=== PATIENT | female | born 1945 | race Caucasian/White ===

== ENCOUNTER → 2017-04-12 | Outpatient (CLI) | payer MEDICARE ==
[2017-04-12 13:03] LABS: Anion Gap 9 mmol/L; Blood Urea Nitrogen 16 mg/dL (7-17); CH 29.3; CHCM 33.1; Carbon Dioxide 30 mmol/L (22-30); Chloride 103 mmol/L (98-107); HCT 46.2 % (34.0-46.0); HDW 2.55; HGB 15.4 gm/dL (11.4-16.0); MCH 29.7 pg (25.0-35.0); MCHC 33.3 g/dL (31.0-37.0); MCV 89.1 fL (80.0-100.0); Mean Platelet Volume 9.2; Non-African American GFR(MDRD) >60 (>60 ml/min/1.73 sqM); Potassium 5.5 mmol/L (3.5-5.1); RBC 5.19 m/uL (3.80-5.40); RDW 13.6 % (11.5-15.5); Sodium 142 mmol/L (137-145); WBC 7.1 k/uL (3.8-10.6)
== END | disposition home or self-care (01) ==
LOC: LABPAT 11:45
PROVIDERS: ATTEND Internal Medicine Interventional Cardiology
DX: I35.0 Nonrheumatic aortic (valve) stenosis (principal); Z01.812 Encounter for preprocedural laboratory examination
CPT/HCPCS: 80051; 82565; 84520; 85027

== ENCOUNTER 2017-04-23 06:17 | Day surgery (SDC) | payer MEDICARE ==
[2017-04-19 09:03] VITALS: BMI 31.2
[2017-04-23] MEDS ORDERED: ALPRAZolam 0.25 MG TAB PO PRN (06:20)
[2017-04-23] MEDS ORDERED: ALPRAZolam 0.5 MG TAB PO PRN (06:20)
[2017-04-23] MEDS ORDERED: NITROGLYCERIN SL TABS 0.4 MG TAB SUBLINGUAL PRN (06:20)
[2017-04-23] MEDS ORDERED: SODIUM CHLORIDE 0.9% 1,000 ML in EMPTY BAG 1 BAG IV ONE (06:20)
[2017-04-23] MEDS ORDERED: ASPIRIN 325 MG TAB PO STA (06:20)
[2017-04-23] MEDS ORDERED: ATORVASTATIN 80 MG TAB PO STA (06:20)
[2017-04-23] MEDS ORDERED: SODIUM CHLORIDE 0.9% 1,000 ML IV ONE (07:15)
[2017-04-23 07:28] LABS: Glucose,Whole Blood 171 mg/dL (75-99)
[2017-04-23 07:46] LABS: Anion Gap 9 mmol/L; Blood Urea Nitrogen 20 mg/dL (7-17); Calcium 9.3 mg/dL (8.4-10.2); Carbon Dioxide 23 mmol/L (22-30); Chloride 107 mmol/L (98-107); Glucose 164 mg/dL (74-99); Non-African American GFR(MDRD) >60 (>60 ml/min/1.73 sqM); Potassium 4.8 mmol/L (3.5-5.1); Sodium 139 mmol/L (137-145)
[2017-04-23] MEDS ORDERED: fentaNYL (PF) 50 MCG/ML 2 ML AMP ONE (07:46)
[2017-04-23] MEDS ORDERED: MIDAZOLAM 2 MG/2 ML VIAL ONE (07:46)
[2017-04-23] MEDS: BENZOCAINE SPRAY 100 APPLIC/CAN MUCOUS MEM ONE ×2 (08:09→08:31)
[2017-04-23] MEDS ORDERED: LIDOCAINE 2% INJ 20 MG/ML (20 ML MDV) ONE (08:25)
[2017-04-23] MEDS: MIDAZOLAM 2 MG/2 ML VIAL IV ONE ×2 (08:31→08:33)
[2017-04-23] MEDS ORDERED: fentaNYL (PF) 50 MCG/ML 2 ML AMP IV ONE (08:33)
[2017-04-23] MEDS ORDERED: IV FLUID CONTINUATION 750 ML IV ONE (08:54)
[2017-04-23] MEDS ORDERED: LIDOCAINE 2% INJ 20 MG/ML SQ ONE (09:09)
[2017-04-23] MEDS ORDERED: BIVALIRUDIN BOLUS 250 MG/50 ML IV ONE (09:24)
[2017-04-23] MEDS ORDERED: BIVALIRUDIN 250 MG in SODIUM CHLORIDE 0.9% 50 ML IV ONE (09:24)
[2017-04-23] MEDS ORDERED: NITROGLYCERIN 1000MCG/10ML SYRINGE INTRAARTER ONE (09:43)
[2017-04-23] MEDS ORDERED: IOHEXOL 350 MG/ML 125ML BOTTLE INJ ONE (09:48)
[2017-04-23] MEDS ORDERED: RX INFO: IV CONTRAST WAS GIVEN 1 EACH MISC MISCELLANE PRN (09:56)
[2017-04-23] MEDS ORDERED: SODIUM CHLORIDE 0.9% 1,000 ML IV SCH (10:00)
--- NOTE | 2017-04-23 10:17 | ECHOT ---
DATE OF SERVICE: 04/23/2017 PERFORMING PHYSICIAN: Ozzie Addison MD. PROCEDURE PERFORMED: Transesophageal echocardiogram. INDICATIONS: This is a pleasant 72-year-old female patient who was found to have severe aortic stenosis by transthoracic echocardiogram. She was experiencing exertional dyspnea. She was brought today to undergo a transesophageal echocardiogram as well as heart catheterization. COMPLICATION: None. LEVEL OF SEDATION: Moderate with sedation length of about 15 minutes. PROCEDURE DESCRIPTION: PROCEDURE DESCRIPTION: After obtaining an informed consent, explaining the procedure, benefits, risks, complications and alternatives, the patient was brought to the transesophageal echocardiogram suite. A pulse oximetry and heart rate monitors were attached to the patient prior to the procedure. The patient's throat was sprayed using lidocaine locally. Following that, the patient was turned into left lateral position. A bite guard was placed and the patient was then sedated with the above doses of Versed and fentanyl in divided doses. Following that, the transesophageal echocardiogram probe was advanced through the bite guard into the mid esophagus where 2-D echocardiogram images as well as color Doppler images of various cardiac structures were obtained. We evaluated the interatrial septum using 2-D echocardiogram, color Doppler, and contrast study. The procedure was completed. There were no complications. FINDINGS: The left ventricular dimension and systolic function appear to be within normal limits with an ejection fraction of 60% with mild concentric left ventricular hypertrophy. The right ventricle is of normal size and function. The left atrium appeared to be mildly dilated. The left atrial appendage appeared to be free from any thrombus. The interatrial septum appeared to be intact without any evidence of shunt. The aortic valve is trileaflet valve and seems to be thickened and calcified with a restriction to opening and evidence of severe aortic stenosis by area as well as by gradient. The mitral valve seems to be also mildly thickened with mild MR. Mild tricuspid regurgitation was seen as well as mild pulmonic insufficiency. CONCLUSION: 1. Severe aortic stenosis by area as well as by gradient. The aortic valve area was less than 1 sq cm and the mean gradient was more than 40 mmHg. 2. Normal left ventricular dimension and systolic function with an ejection fraction of about 65% with mild to moderate concentric left ventricular hypertrophy. 3. Thickened mitral valve leaflets with mild mitral regurgitation. 4. Normal tricuspid valve and pulmonic valve. 5. Normal right ventricular dimension and systolic function. 6. Intact interatrial septum without any evidence of shunt. 7. Normal left atrial appendage without any evidence of thrombus. 8. Mild atherosclerotic plaque in the descending thoracic aorta. MTDD
[2017-04-23 13:32] LABS: Appearance,Urine Clear (Clear); Bacteria,Urine Rare /hpf; Bilirubin,Urine Negative (Negative); Glucose,Urine (UA) 4+ (Negative); Ketones,Urine Negative (Negative); Leukocyte Esterase,Urine Negative (Negative); Nitrite,Urine Negative (Negative); Particle Count 253; Protein,Urine Negative (Negative); RBC,Urine 15 /hpf (0-5); Specific Gravity,Urine 1.043 (1.001-1.035); UA Billing (MACRO vs. MICRO) MICRO; Urobilinogen,Urine <2.0 mg/dL (<2.0); WBC,Urine 1 /hpf (0-5)
[2017-04-23 14:47] VITALS: RESP 16
--- NOTE | 2017-04-23 16:00 | P.GSCN ---
History of Present Illness Consult date: 04/23/17 Reason for Consult: Aortic valve stenosis, surgical recommendations Requesting physician: Ozzie Addison History of present illness: This 72-year-old female patient had an echocardiogram done at her primary care physician's office following detection of a heart murmur. The echo demonstrated normal LV function with basal septal hypertrophy and evidence of severe aortic stenosis with a mean gradient of 14 mmHg. She was referred to Dr. Addison for further cardiac evaluation. She denies that she has had any chest pain or discomfort but has had exertional dyspnea and lower extremity edema. She was recommended to have a transesophageal echocardiogram and heart catheterization which were completed today. The ONEIL demonstrated severe aortic stenosis with an aortic valve area less than 1 cm and a mean gradient more than 40 mmHg. Additionally, findings included ejection fraction 65% with mild- to-moderate concentric left ventricular hypertrophy and thickened mitral valve leaflets with mild mitral regurgitation. Her heart catheterization demonstrated RCA stenosis of 50%, circumflex 70%, proximal LAD 10%, mid LAD 10% . Due to these findings, Dr. Patel was consulted for surgical recommendations. Review of Systems 14 point review systems was completed and was negative except as noted. - Constitutional Reports fatigue - Cardiovascular Reports as per HPI - Respiratory Reports as per HPI Past Medical History Past Medical History: Cancer, Diabetes Mellitus, Hyperlipidemia, Hypertension, Osteoarthritis (OA), Thyroid Disorder Additional Past Medical History / Comment(s): basal cell cancer History of Any Multi-Drug Resistant Organisms: None Reported Past Surgical History: Cholecystectomy, Tonsillectomy Additional Past Surgical History / Comment(s): colonoscopy, skin cancer Past Anesthesia/Blood Transfusion Reactions: No Reported Reaction Smoking Status: Current every day smoker - Past Family History Father Family Medical History: Myocardial Infarction ([place]) Mother Family Medical History: Cancer Additional Family Medical History / Comment(s): breast and liver Sister(s) Family Medical History: Cancer Additional Family Medical History / Comment(s): breast Medications and Allergies Home Medications Medication Instructions Recorded Confirmed Type Alendronate Sodium 70 mg PO WEEKLY 04/19/17 04/19/17 History Cholecalciferol (Vitamin D3) 2,000 unit PO DAILY 04/19/17 04/23/17 History [Vitamin D3] Empagliflozin [Jardiance] 10 mg PO QAM 04/19/17 04/23/17 History Furosemide [Lasix] 20 mg PO QAM 04/19/17 04/23/17 History Krill/Om-3/Dha/Epa/Phospho/Ast 1 each PO DAILY 04/19/17 04/19/17 History [[place]-3 Krill Oil 300 mg Sfgl] Lisinopril [Zestril] 10 mg PO HS 04/19/17 04/23/17 History Meloxicam 15 mg PO DAILY 04/19/17 04/23/17 History Methimazole [Tapazole] 5 mg PO DAILY 04/19/17 04/23/17 History Metoprolol Succinate [Toprol XL] 50 mg PO HS 04/19/17 04/23/17 History Multivitamins, Thera [Multivitamin 1 tab PO DAILY 04/19/17 04/23/17 History (formulary)] Omeprazole 20 mg PO HS 04/19/17 04/23/17 History Pravastatin Sodium [Pravachol] 40 mg PO HS 04/19/17 04/23/17 History Aspirin [Adult Low Dose Aspirin EC] 81 mg PO ONCE 04/23/17 04/23/17 History sitaGLIPtin [Januvia] 100 mg PO DAILY 04/23/17 04/23/17 History Allergies Allergy/AdvReac Type Severity Reaction Status Date / Time aspirin Allergy Nausea & Verified 04/23/17 06:51 Vomiting Penicillins Allergy Rash/Hives Verified 04/23/17 06:51 Sulfa (Sulfonamide Allergy fever Verified 04/23/17 06:51 Antibiotics) blisters on lips Surgical - Exam Vital Signs Temp Pulse Resp BP Pulse Ox 98.2 F 69 16 161/71 98 04/23/17 06:45 04/23/17 06:45 04/23/17 06:45 04/23/17 06:45 04/23/17 06:45 - General well developed, well nourished, no distress, no pain - Eyes PERRL, normal ocular movement - ENT no hearing loss - Neck trachea midline - Respiratory normal expansion, normal respiratory effort, clear to auscultation - Cardiovascular Rhythm: regular Heart Sounds: normal: S1, S2 Abnormal Heart Sounds: systolic murmur - Abdomen Abdomen: soft, non tender - Genitourinary Deferred - Rectum Deferred - Neurologic normal coordination, normal sensation - Psychiatric oriented to time, oriented to person, oriented to place, speech is normal, memory intact Results - Labs 04/23/17 07:20 Abnormal Lab Results - Last 24 Hours (Table) 04/23/17 04/23/17 04/23/17 Range/Units 07:20 07:23 13:00 BUN 20 H (7-17) mg/dL Glucose 164 H (74-99) mg/dL POC Glucose (mg/dL) 171 H (75-99) mg/dL Ur Specific [place] 1.043 H (1.001-1.035) Urine Glucose (UA) 4+ H (Negative) Urine Blood Moderate H (Negative) Urine RBC 15 H (0-5) /hpf Urine Bacteria Rare H (None) /hpf Diabetes panel 04/23/17 Range/Units 07:20 Sodium 139 (137-145) mmol/L Potassium 4.8 (3.5-5.1) mmol/L Chloride 107 (98-107) mmol/L Carbon Dioxide 23 (22-30) mmol/L BUN 20 H (7-17) mg/dL Creatinine 0.63 (0.52-1.04) mg/dL Glucose 164 H (74-99) mg/dL Calcium 9.3 (8.4-10.2) mg/dL Calcium panel 04/23/17 Range/Units 07:20 Calcium 9.3 (8.4-10.2) mg/dL Pituitary panel 04/23/17 Range/Units 07:20 Sodium 139 (137-145) mmol/L Potassium 4.8 (3.5-5.1) mmol/L Chloride 107 (98-107) mmol/L Carbon Dioxide 23 (22-30) mmol/L BUN 20 H (7-17) mg/dL Creatinine 0.63 (0.52-1.04) mg/dL Glucose 164 H (74-99) mg/dL Calcium 9.3 (8.4-10.2) mg/dL Adrenal panel 04/23/17 Range/Units 07:20 Sodium 139 (137-145) mmol/L Potassium 4.8 (3.5-5.1) mmol/L Chloride 107 (98-107) mmol/L Carbon Dioxide 23 (22-30) mmol/L BUN 20 H (7-17) mg/dL Creatinine 0.63 (0.52-1.04) mg/dL Glucose 164 H (74-99) mg/dL Calcium 9.3 (8.4-10.2) mg/dL - Imaging Additional studies: Cardiac catheterization reviewed. Assessment and Plan (1) Hypertension Status: Acute (2) Hyperlipidemia Status: Acute (3) Diabetes mellitus, type II Status: Acute (4) Aortic stenosis Status: Acute (5) Coronary artery disease Status: Acute (6) Tobacco dependence Status: Acute (7) Obesity (BMI 30.0-34.9) Status: Acute Plan: The patient was seen and examined in the extended stay area. Chart/diagnostics were reviewed. Cardiac catheterization films were reviewed. Preoperative testing was ordered. Dr. Patel spoke at length with the patient and family member. The patient is to obtain dental clearance and follow-up in the office with Dr. Patel in 2 weeks. At that time surgery will be discussed in greater detail and further recommendations will follow. Thank you Dr. Addison for this consult. We look forward to working with you in the care of your patient. Time with Patient: Greater than 30
[2017-04-23 16:25] VITALS: TEMP 97.9
[2017-04-23 17:33] VITALS: BP 119/57; PULSE 68
[2017-04-23 17:46] LABS: Glucose,Whole Blood 217 mg/dL (75-99)
[2017-04-23 17:51] LABS: Basophils # (A) 0.1 k/uL (0-0.2); Basophils % (A) 1 %; CH 29.8; Eosinophils # (A) 0.2 k/uL (0-0.7); Eosinophils % (A) 2 %; HDW 2.56; HGB 14.2 gm/dL (11.4-16.0); Luc # (Auto) 0.11; Luc % (Auto) 1; Lymphocytes # (A) 1.9 k/uL (1.0-4.8); Lymphocytes % (A) 21 %; MCHC 33.1 g/dL (31.0-37.0); MCV 90.7 fL (80.0-100.0); Mean Platelet Volume 10.2; Monocytes # (A) 0.4 k/uL (0-1.0); Monocytes % (A) 4 %; Neutrophils # (A) 6.4 k/uL (1.3-7.7); Neutrophils % (A) 70 %; RBC 4.74 m/uL (3.80-5.40); RDW 14.7 % (11.5-15.5); WBC 9.1 k/uL (3.8-10.6); WBC (Perox) 9.27
[2017-04-23 18:00] LABS: ALT 26 U/L (9-52); AST 18 U/L (14-36); Alkaline Phosphatase 69 U/L (38-126); Anion Gap 8 mmol/L; Blood Urea Nitrogen 18 mg/dL (7-17); Carbon Dioxide 26 mmol/L (22-30); Chloride 102 mmol/L (98-107); Cholesterol 160 mg/dL (<200); Glucose 214 mg/dL (74-99); HDL Cholesterol 40 mg/dL (40-60); Magnesium 1.7 mg/dL (1.6-2.3); Non-African American GFR(MDRD) >60 (>60 ml/min/1.73 sqM); Potassium 4.4 mmol/L (3.5-5.1); Sodium 136 mmol/L (137-145); Total Bilirubin 0.5 mg/dL (0.2-1.3); Total Protein 6.3 g/dL (6.3-8.2); Triglycerides 224 mg/dL (<150)
[2017-04-23 18:01] LABS: INR 1.1 (<1.2); Partial Thromboplastin Time 26.6 sec (22.0-30.0); Prothrombin Time 11.1 sec (9.0-12.0)
--- NOTE | 2017-04-23 18:27 | XR ---
EXAMINATION TYPE: XR chest 2V DATE OF EXAM: 04/23/2017 COMPARISON: NONE HISTORY: Preop cardiac surgery TECHNIQUE: Frontal and lateral views of the chest are obtained. FINDINGS: There is no heart failure nor confluent pneumonic infiltrate. There is coarsening of inter stitial markings. Heart size is normal. Thoracic aorta is atheromatous. Bones are osteopenic. IMPRESSION: Mild pulmonary fibrotic changes. No acute lung disease.
[2017-04-23 19:12] LABS: Hepatitis B Surface Ag Index 0.05
[2017-04-23 19:18] LABS: Hepatitis B Core IgM Index 0.03
[2017-04-23 19:30] LABS: Hepatitis C Virus IgG Ab Negative (Negative); Hepatitis C Virus IgG Index 0.02
--- NOTE | 2017-04-23 20:13 | CC ---
DATE OF PROCEDURE: 04/23/2017 PERFORMING PHYSICIAN: Ozzie Addison M.D., psychodramatist PROCEDURES PERFORMED: 1. Selective right common femoral artery angiogram. 2. Selective right and left coronary angiogram. 3. Fractional flow reserve of the left circumflex coronary artery. INDICATION: This is a pleasant 72-year-old female patient who was experiencing exertional dyspnea and was found to have severe aortic stenosis. The heart catheterization is for further clarification of the severity of CAD before the surgery. APPROACH: Right common femoral artery. COMPLICATIONS: None. LEVEL OF SEDATION: Moderate, with a sedation length of 38 minutes. PROCEDURE DESCRIPTION: After obtaining informed consent, the patient was brought to the cardiac laboratory technologist. The right common femoral artery was cannulated using micropuncture technique. The micropuncture wire passed easily. Then I placed a 6 [place] sheath in the right common femoral artery. Subsequently I did selective right and left coronary angiogram using JR4 and JL4 catheters. After reviewing the angiogram, I performed an FFR of the left circumflex. Please see separate paragraph for that. SELECTIVE CORONARY ANGIOGRAM: 1. The right coronary artery is a large-caliber vessel. It is a dominant vessel. It is heavily calcified. RCA has disease in the proximal portion of about 50%. The mid and distal portions appeared to have mild disease only. The RCA distally bifurcates into PDA and PLV branches; both are angiographically normal. 2. The left main is angiographically normal. It bifurcates into the left circumflex and left anterior descending artery. 3. The left circumflex is a large-caliber vessel. It is a non-dominant vessel. The proximal circumflex has eccentric calcified lesions that seem to be in the range of 60% to 70%, and by FFR came in to be ischemic, less than 0.80. The left circumflex gives rise to the first OM branch, which appears to have mild to moderate diffuse disease in the proximal portion. It continues after that as a moderate-caliber vessel in the AV groove. 4. The left anterior descending artery. The proximal LAD appeared to be have mild disease only. The mid LAD appeared to have mild disease only as well, then it distally appeared to have mild disease only. The LAD in the mid portion gives rise to the first diagonal branch, which appeared to be angiographically normal. FFR OF THE LEFT CIRCUMFLEX: Anticoagulation was initiated using Angiomax. After zeroing the Doppler wire and equalizing between the Doppler wire and the guiding catheter which was JL4 guiding catheter, we did an FFR. The FFR came in to be quite ischemic without adenosine infusion and without hyperemia. CONCLUSION: 1. Mild disease involving the right coronary artery. 2. Severe disease involving the proximal left circumflex coronary artery. 3. Mild disease involving the LAD. POST-PROCEDURE MANAGEMENT: 1. Consult surgeon for evaluation of AVR along with coronary artery bypass grafting to left circumflex. 2. Follow up with the patient. RAFAEL
[2017-04-23 22:19] LABS: Hemoglobin A1C 7.2 % (4.2-6.1)
--- NOTE | 2017-04-28 14:37 | P.VSCSTY ---
Greater Saphenous Vein Mapping This is bilateral lower extremity greater saphenous vein mapping. Date of service 04/23/2017 Vein quality and ultrasound appearance preop CABG. Multiple branches bilaterally nonocclusive thrombus is noted in the right groin and high thigh.. Vein size groin right 4.6 x 6.0 groin left 3.6 x 4.0 High thigh right 2.9 x 3.6 high thigh left 2.4 x 3.3 Mid thigh right 2.4 x 2.7 mid thigh left 2.2 x 2.4 Above-knee right 2.0 x 2.2 above- knee left 2.0 x 2.6 Below knee right 2.1 x 2.6 below-knee left 1.8 x 1.8 Mid calf right 2.2 x 2.7 mid calf left 1.9 x 2.2 Ankle right 2.7 x 3.7 ankle left 2.2 x 2.8 Impression usable greater saphenous vein proximally on the left and distally on the right. Would avoid use of the groin and high thigh on the right. The left below the knee may be a bit small.
== END 2017-04-23 19:05 | disposition home or self-care (01) ==
LOC: CATHCVL 06:17 → 3OBS 09:46 → CATHCVL 19:05
PROVIDERS: ATTEND Internal Medicine Interventional Cardiology
DX: I08.0 Rheumatic disorders of both mitral and aortic valves (principal); I70.0 Atherosclerosis of aorta; I25.110 Atherosclerotic heart disease of native coronary artery with unstable angina pectoris; R00.1 Bradycardia, unspecified; I44.0 Atrioventricular block, first degree; I45.10 Unspecified right bundle-branch block; R94.31 Abnormal electrocardiogram [ECG] [EKG]; J84.10 Pulmonary fibrosis, unspecified; R01.1 Cardiac murmur, unspecified; R93.1 Abnormal findings on diagnostic imaging of heart and coronary circulation; I10 Essential (primary) hypertension; E78.5 Hyperlipidemia, unspecified; E11.9 Type 2 diabetes mellitus without complications; E66.9 Obesity, unspecified; Z68.31 Body mass index [BMI] 31.0-31.9, adult; E07.9 Disorder of thyroid, unspecified; E78.00 Pure hypercholesterolemia, unspecified; F17.200 Nicotine dependence, unspecified, uncomplicated; Z79.899 Other long term (current) drug therapy; Z79.51 Long term (current) use of inhaled steroids; Z79.84 Long term (current) use of oral hypoglycemic drugs; Z88.6 Allergy status to analgesic agent; Z88.0 Allergy status to penicillin; Z88.2 Allergy status to sulfonamides
CPT/HCPCS: 93312; 93320; 93005; 93325; 93571; 93454; 83880; 80061; 80053; 80048; 80074; 84443; 83036; 83735; 85025; 85610; 85730; 81001; 87070; 87086; 71020; 93970; 99152; 99153; C1887; C1894; C1769 ×2; J2001; J2250; J3010; J0583; Q9967

== ENCOUNTER 2017-04-25 07:48 | Inpatient (IN) | payer MEDICARE ==
[2017-04-25] MEDS ORDERED: SODIUM CHLORIDE 0.9% 1,000 ML IV STA (08:14)
--- NOTE | 2017-04-25 08:29 | ED ---
General Adult HPI - General Chief complaint: Skin/Abscess/Foreign Body Stated complaint: POST OP SWELLING Time Seen by Provider: 04/25/17 08:09 Source: patient, RN notes reviewed, old records reviewed Mode of arrival: EMS Limitations: no limitations - History of Present Illness Initial comments: This is a 72-year-old female ER for evaluation. Patient is presenting to the ER for evaluation regarding episode of diaphoresis, patient states she is severe by pain, groin pain with from recent cardiac catheterization. Patient also states she lost control of bowels today. Patient does have significant heart history, significant history of cardiac disease. Denies fever congestion or chest pain. No bowel pain. Denies neurological deficits at this time. Complaining of thigh pain severe. - Related Data Home Medications Medication Instructions Recorded Confirmed Alendronate Sodium 70 mg PO SA 04/19/17 04/25/17 Cholecalciferol (Vitamin D3) 2,000 unit PO DAILY 04/19/17 04/25/17 [Vitamin D3] Empagliflozin [Jardiance] 10 mg PO QAM 04/19/17 04/25/17 Furosemide [Lasix] 20 mg PO QAM 04/19/17 04/25/17 Krill/Om-3/Dha/Epa/Phospho/Ast 1 cap PO DAILY 04/19/17 04/25/17 [[place]-3 Krill Oil 300 mg Sfgl] Lisinopril [Zestril] 10 mg PO HS 04/19/17 04/25/17 Meloxicam 15 mg PO DAILY 04/19/17 04/25/17 Methimazole [Tapazole] 5 mg PO DAILY 04/19/17 04/25/17 Metoprolol Succinate [Toprol XL] 50 mg PO HS 04/19/17 04/25/17 Multivitamins, Thera [Multivitamin 1 tab PO DAILY 04/19/17 04/25/17 (formulary)] Omeprazole 20 mg PO HS 04/19/17 04/25/17 Pravastatin Sodium [Pravachol] 40 mg PO HS 04/19/17 04/25/17 sitaGLIPtin [Januvia] 100 mg PO DAILY 04/23/17 04/25/17 Allergies Allergy/AdvReac Type Severity Reaction Status Date / Time aspirin Allergy Nausea & Verified 04/25/17 13:07 Vomiting Penicillins Allergy Rash/Hives Verified 04/25/17 13:07 Sulfa (Sulfonamide Allergy fever Verified 04/25/17 13:07 Antibiotics) blisters on lips Review of Systems ROS Statement: Those systems with pertinent positive or pertinent negative responses have been documented in the HPI. ROS Other: All systems not noted in ROS Statement are negative. Past Medical History - Past Family History Father Family Medical History: Myocardial Infarction ([place]) Mother Family Medical History: Cancer Sister(s) Family Medical History: Cancer General Exam Limitations: no limitations General appearance: alert, in no apparent distress Head exam: Present: atraumatic, normocephalic, normal inspection Eye exam: Present: normal appearance, PERRL, EOMI. Absent: scleral icterus, conjunctival injection, periorbital swelling ENT exam: Present: normal exam, mucous membranes moist Neck exam: Present: normal inspection. Absent: tenderness, meningismus, lymphadenopathy Respiratory exam: Present: normal lung sounds bilaterally. Absent: respiratory distress, wheezes, rales, rhonchi, stridor Cardiovascular Exam: Present: regular rate, normal rhythm, normal heart sounds. Absent: systolic murmur, diastolic murmur, rubs, gallop, clicks GI/Abdominal exam: Present: soft, normal bowel sounds. Absent: distended, tenderness, guarding, rebound, rigid Extremities exam: Present: normal inspection, full ROM, normal capillary refill , other (Right leg edema, swelling, pain, good distal pulses dorsalis pedis and posterior tibialis right lower extremity, good capillary refill positive). Absent: tenderness, pedal edema, joint swelling, calf tenderness Back exam: Present: normal inspection Neurological exam: Present: alert, oriented X3, CN II-XII intact Psychiatric exam: Present: normal affect, normal mood Skin exam: Present: warm, dry, intact, normal color. Absent: rash Course Vital Signs 04/25/17 04/25/17 04/25/17 07:49 09:43 10:41 Temperature 97.1 F L Pulse Rate 67 67 69 Respiratory Rate Blood Pressure 161/68 155/67 146/65 O2 Sat by Pulse 100 96 98 Oximetry 04/25/17 11:40 Temperature Pulse Rate 82 Respiratory 18 Rate Blood Pressure 137/65 O2 Sat by Pulse 97 Oximetry - Reevaluation(s) Reevaluation #1: 04/25/17 13:25 The patient has had no syncopal events, denies chest pain or shortness of breath Reevaluation #2: 04/25/17 13:25 Spoke with cardiology regarding findings, we'll consult radiology for treatment 04/25/17 13:25 Spoke with radiology regarding treatment, recommend consulting interventional radiology EKG Findings - EKG Comments: EKG Findings:: EKG shows sinus rhythm rate of 60, [place] 194, QRS 126, QTc 480 Medical Decision Making - Medical Decision Making 72 female the ER for evaluation regarding right leg pain, loss of bowel, loss of bladder, patient is positive right leg pseudoaneurysm. Patient reported repeat troponin which showed mild increased outpatient be for trending of troponin cardiac evaluation. Patient also ate the admitted for interventional radiology treatment of pseudoaneurysm - Lab Data Result diagrams: 04/25/17 08:27 04/25/17 08:27 Lab Results 04/25/17 04/25/17 04/25/17 Range/Units 08:27 08:27 08:27 WBC 12.3 H (3.8-10.6) k/uL RBC 4.68 (3.80-5.40) m/uL Hgb 14.0 (11.4-16.0) gm/dL Hct 42.2 (34.0-46.0) % MCV 90.1 (80.0-100.0) fL MCH 29.8 (25.0-35.0) pg MCHC 33.1 (31.0-37.0) g/dL RDW 14.6 (11.5-15.5) % Plt Count 153 (150-450) k/uL Neutrophils % 82 % Lymphocytes % 11 % Monocytes % 4 % Eosinophils % 1 % Basophils % 1 % Neutrophils # 10.1 H (1.3-7.7) k/uL Lymphocytes # 1.4 (1.0-4.8) k/uL Monocytes # 0.5 (0-1.0) k/uL Eosinophils # 0.1 (0-0.7) k/uL Basophils # 0.1 (0-0.2) k/uL PT (9.0-12.0) sec INR (<1.2) APTT (22.0-30.0) sec Sodium 141 (137-145) mmol/L Potassium 5.8 H (3.5-5.1) mmol/L Chloride 106 (98-107) mmol/L Carbon Dioxide 27 (22-30) mmol/L Anion Gap 8 mmol/L BUN 18 H (7-17) mg/dL Creatinine 0.75 (0.52-1.04) mg/dL Est GFR (MDRD) Af Amer >60 (>60 ml/min/1.73 sqM) Est GFR (MDRD) Non-Af >60 (>60 ml/min/1.73 sqM) Glucose 264 H (74-99) mg/dL Calcium 9.3 (8.4-10.2) mg/dL Phosphorus 3.7 (2.5-4.5) mg/dL Magnesium 1.9 (1.6-2.3) mg/dL Total Bilirubin 0.7 (0.2-1.3) mg/dL AST 16 (14-36) U/L ALT 32 (9-52) U/L Alkaline Phosphatase 75 (38-126) U/L Total Creatine Kinase 26 L (30-135) U/L CK-MB (CK-2) 0.3 (0.0-2.4) ng/mL CK-MB (CK-2) Rel Index 1.2 Troponin I <0.012 (0.000-0.034) ng/mL Total Protein 6.7 (6.3-8.2) g/dL Albumin 3.8 (3.5-5.0) g/dL Urine Color Urine Appearance (Clear) Urine pH (5.0-8.0) Ur Specific [place] (1.001-1.035) Urine Protein (Negative) Urine Glucose (UA) (Negative) Urine Ketones (Negative) Urine Blood (Negative) Urine Nitrite (Negative) Urine Bilirubin (Negative) Urine Urobilinogen (<2.0) mg/dL Ur Leukocyte Esterase (Negative) Urine RBC (0-5) /hpf Urine WBC (0-5) /hpf Ur Squamous Epith Cells (0-4) /hpf Urine Bacteria (None) /hpf Hyaline Casts (0-2) /lpf Urine Mucus (None) /hpf 04/25/17 04/25/17 04/25/17 Range/Units 08:27 11:52 12:27 WBC (3.8-10.6) k/uL RBC (3.80-5.40) m/uL Hgb (11.4-16.0) gm/dL Hct (34.0-46.0) % MCV (80.0-100.0) fL MCH (25.0-35.0) pg MCHC (31.0-37.0) g/dL RDW (11.5-15.5) % Plt Count (150-450) k/uL Neutrophils % % Lymphocytes % % Monocytes % % Eosinophils % % Basophils % % Neutrophils # (1.3-7.7) k/uL Lymphocytes # (1.0-4.8) k/uL Monocytes # (0-1.0) k/uL Eosinophils # (0-0.7) k/uL Basophils # (0-0.2) k/uL PT 11.1 (9.0-12.0) sec INR 1.1 (<1.2) APTT 22.2 (22.0-30.0) sec Sodium (137-145) mmol/L Potassium (3.5-5.1) mmol/L Chloride (98-107) mmol/L Carbon Dioxide (22-30) mmol/L Anion Gap mmol/L BUN (7-17) mg/dL Creatinine (0.52-1.04) mg/dL Est GFR (MDRD) Af Amer (>60 ml/min/1.73 sqM) Est GFR (MDRD) Non-Af (>60 ml/min/1.73 sqM) Glucose (74-99) mg/dL Calcium (8.4-10.2) mg/dL Phosphorus (2.5-4.5) mg/dL Magnesium (1.6-2.3) mg/dL Total Bilirubin (0.2-1.3) mg/dL AST (14-36) U/L ALT (9-52) U/L Alkaline Phosphatase (38-126) U/L Total Creatine Kinase (30-135) U/L CK-MB (CK-2) (0.0-2.4) ng/mL CK-MB (CK-2) Rel Index Troponin I 0.028 (0.000-0.034) ng/mL Total Protein (6.3-8.2) g/dL Albumin (3.5-5.0) g/dL Urine Color Yellow Urine Appearance Clear (Clear) Urine pH 5.5 (5.0-8.0) Ur Specific [place] 1.019 (1.001-1.035) Urine Protein Negative (Negative) Urine Glucose (UA) 4+ H (Negative) Urine Ketones Negative (Negative) Urine Blood Trace H (Negative) Urine Nitrite Negative (Negative) Urine Bilirubin Negative (Negative) Urine Urobilinogen <2.0 (<2.0) mg/dL Ur Leukocyte Esterase Negative (Negative) Urine RBC 5 (0-5) /hpf Urine WBC 2 (0-5) /hpf Ur Squamous Epith Cells <1 (0-4) /hpf Urine Bacteria Rare H (None) /hpf Hyaline Casts 7 H (0-2) /lpf Urine Mucus Rare H (None) /hpf - Radiology Data Radiology results: report reviewed (Chest x-ray is negative, right leg ultrasound SHOWS POSITIVE PSEUDOANEURYSM), image reviewed Disposition Clinical Impression: Pseudoaneurysm, Right leg pain, Elevated troponin Disposition: ADMITTED IP TO THIS [facility] Condition: Fair Referrals: Howard Glover MD [Primary Care Provider] - 1-2 days
[2017-04-25 08:47] LABS: ALT 32 U/L (9-52); AST 16 U/L (14-36); Alkaline Phosphatase 75 U/L (38-126); Anion Gap 8 mmol/L; Blood Urea Nitrogen 18 mg/dL (7-17); Calcium 9.3 mg/dL (8.4-10.2); Carbon Dioxide 27 mmol/L (22-30); Chloride 106 mmol/L (98-107); Glucose 264 mg/dL (74-99); Magnesium 1.9 mg/dL (1.6-2.3); Non-African American GFR(MDRD) >60 (>60 ml/min/1.73 sqM); Phosphorous 3.7 mg/dL (2.5-4.5); Potassium 5.8 mmol/L (3.5-5.1); Sodium 141 mmol/L (137-145); Total Bilirubin 0.7 mg/dL (0.2-1.3); Total Protein 6.7 g/dL (6.3-8.2)
[2017-04-25 08:52] LABS: Basophils # (A) 0.1 k/uL (0-0.2); Basophils % (A) 1 %; CH 29.6; Eosinophils # (A) 0.1 k/uL (0-0.7); Eosinophils % (A) 1 %; HCT 42.2 % (34.0-46.0); HDW 2.53; Luc % (Auto) 1; Lymphocytes # (A) 1.4 k/uL (1.0-4.8); Lymphocytes % (A) 11 %; MCH 29.8 pg (25.0-35.0); MCHC 33.1 g/dL (31.0-37.0); MCV 90.1 fL (80.0-100.0); Mean Platelet Volume 10.6; Monocytes # (A) 0.5 k/uL (0-1.0); Monocytes % (A) 4 %; Neutrophils # (A) 10.1 k/uL (1.3-7.7); Neutrophils % (A) 82 %; RBC 4.68 m/uL (3.80-5.40); RDW 14.6 % (11.5-15.5); WBC 12.3 k/uL (3.8-10.6); WBC (Perox) 11.28
[2017-04-25 08:56] LABS: Creatine Kinase 26 U/L (30-135); INR 1.1 (<1.2); Partial Thromboplastin Time 22.2 sec (22.0-30.0); Prothrombin Time 11.1 sec (9.0-12.0)
[2017-04-25 09:09] LABS: Creatine Kinase MB 0.3 ng/mL (0.0-2.4); Troponin I <0.012 ng/mL (0.000-0.034)
--- NOTE | 2017-04-25 10:30 | XR ---
EXAMINATION TYPE: XR chest 1V DATE OF EXAM: 04/25/2017 HISTORY: Shortness of breath. COMPARISON: 04/23/2017 TECHNIQUE: Single view of the chest is submitted. FINDINGS: Demonstrated are scattered senescent parenchymal change. There is no evidence for focal infiltrate. The heart is stable. Hilar and mediastinal structures are within normal limits. Degenerative changes are seen of the dorsal spine. IMPRESSION: 1. Chronic changes without evidence for acute pulmonary disease.
--- NOTE | 2017-04-25 11:47 | US ---
EXAMINATION TYPE: US lower ext pseudo artery RT DATE OF EXAM: 04/25/2017 COMPARISON: NONE CLINICAL HISTORY: Pain. EXAM PERFORMED: Grayscale and color Doppler duplex imaging performed of the groin, post cardiac chinedu ter to assess for pseudoaneurysm. SIDE PERFORMED: Right Color and Waveform Doppler performed to assess for the presence of pseudoaneurysm; Is there ultrasound evidence of a pseudoaneurysm: Yes Is there evidence of AV shunting: No Is there a fluid collection present: Yes There is an approximate 5 x 1.5 cm pseudoaneurysm identified within the right groin with a 1.25 m in length neck noted. An adjacent collection seen which may reflect hematoma measuring 8 x 1.3 x 2.9 cm. IMPRESSION: Right groin pseudoaneurysm with adjacent hematoma.
[2017-04-25 12:45] LABS: Appearance,Urine Clear (Clear); Bacteria,Urine Rare /hpf; Bilirubin,Urine Negative (Negative); Glucose,Urine (UA) 4+ (Negative); Ketones,Urine Negative (Negative); Leukocyte Esterase,Urine Negative (Negative); Mucus,Urine Rare /hpf; Nitrite,Urine Negative (Negative); PH, Urine 5.5 (5.0-8.0); Particle Count 4377; Protein,Urine Negative (Negative); RBC,Urine 5 /hpf (0-5); Specific Gravity,Urine 1.019 (1.001-1.035); Squamous Epithelial Cell,Urine <1 /hpf (0-4); UA Billing (MACRO vs. MICRO) MICRO; Urobilinogen,Urine <2.0 mg/dL (<2.0); WBC,Urine 2 /hpf (0-5)
[2017-04-25] MEDS ORDERED: SODIUM POLYSTYRENE SULFONATE 15 GM/60 ML BOTTLE PO STA (14:31)
[2017-04-25] MEDS ORDERED: ACETAMINOPHEN TAB 500 MG TAB PO PRN (15:10)
[2017-04-25] MEDS: HYDROcodone/APAP 5-325MG 1 EACH TAB PO PRN (15:24)
[2017-04-25 15:37] VITALS: BMI 31.2
--- NOTE | 2017-04-25 16:23 | P.HPIM ---
History of Present Illness This 73-year-old pleasant female came in because of worsening hematoma in the right groin area patient underwent cardiac catheterization on last Wednesday. Patient is found to have pseudoaneurysm and hematoma. Cardiology and vascular surgery are being consulted for this. Patient was complaining of severe pain in that area for which she'll use Tylenol and [place] for pain control. Patient underwent cardiac catheterization and ONEIL, cardioversion did not show any significant stentable atherosclerotic vascular disease although patient is found to have attic valve regurgitation for which patient is supposed to follow with cardiac thoracic surgery as an outpatient. Patient denied any fever, chills, nausea, vomiting, lightheadedness. Review of Systems REVIEW OF SYSTEMS: CONSTITUTIONAL: No fever, no malaise, no fatigue. HEENT: No recent visual problems or hearing problems. Denied any sore throat. CARDIOVASCULAR: No chest pain, orthopnea, PND, no palpitations, no syncope. PULMONARY: No shortness of breath, no cough, no hemoptysis. GASTROINTESTINAL: No diarrhea, no nausea, no vomiting, no abdominal pain. Normoactive bowel sounds. NEUROLOGICAL: No headaches, no weakness, no numbness. HEMATOLOGICAL: Denies any bleeding or petechiae. GENITOURINARY: Denies any burning micturition, frequency, or urgency. MUSCULOSKELETAL/RHEUMATOLOGICAL: Denies any joint pain, swelling, or any muscle pain. ENDOCRINE: Denies any polyuria or polydipsia. The rest of the 14-point review of systems is negative. Past Medical History Past Medical History: Coronary Artery Disease (CAD), Cancer, Diabetes Mellitus, GERD/Reflux, Hyperlipidemia, Hypertension, Osteoarthritis (OA) Additional Past Medical History / Comment(s): aortic stenosis, right bundle branch block, basal cell carcinoma History of Any Multi-Drug Resistant Organisms: None Reported Past Surgical History: Cholecystectomy, Heart Catheterization Additional Past Surgical History / Comment(s): skin cancer removed, nasal surgery Past Anesthesia/Blood Transfusion Reactions: No Reported Reaction Past Psychological History: No Psychological Hx Reported Smoking Status: Current every day smoker Past Alcohol Use History: None Reported Past Drug Use History: None Reported - Past Family History Father Family Medical History: Myocardial Infarction ([place]) Mother Family Medical History: Cancer Sister(s) Family Medical History: Cancer Medications and Allergies Home Medications Medication Instructions Recorded Confirmed Type Alendronate Sodium 70 mg PO SA 04/19/17 04/25/17 History Cholecalciferol (Vitamin D3) 2,000 unit PO DAILY 04/19/17 04/25/17 History [Vitamin D3] Empagliflozin [Jardiance] 10 mg PO QAM 04/19/17 04/25/17 History Furosemide [Lasix] 20 mg PO QAM 04/19/17 04/25/17 History Krill/Om-3/Dha/Epa/Phospho/Ast 1 cap PO DAILY 04/19/17 04/25/17 History [[place]-3 Krill Oil 300 mg Sfgl] Lisinopril [Zestril] 10 mg PO HS 04/19/17 04/25/17 History Meloxicam 15 mg PO DAILY 04/19/17 04/25/17 History Methimazole [Tapazole] 5 mg PO DAILY 04/19/17 04/25/17 History Metoprolol Succinate [Toprol XL] 50 mg PO HS 04/19/17 04/25/17 History Multivitamins, Thera [Multivitamin 1 tab PO DAILY 04/19/17 04/25/17 History (formulary)] Omeprazole 20 mg PO HS 04/19/17 04/25/17 History Pravastatin Sodium [Pravachol] 40 mg PO HS 04/19/17 04/25/17 History sitaGLIPtin [Januvia] 100 mg PO DAILY 04/23/17 04/25/17 History Allergies Allergy/AdvReac Type Severity Reaction Status Date / Time aspirin Allergy Nausea & Verified 04/25/17 13:07 Vomiting Penicillins Allergy Rash/Hives Verified 04/25/17 13:07 Sulfa (Sulfonamide Allergy fever Verified 04/25/17 13:07 Antibiotics) blisters on lips Physical Exam Vitals: Vital Signs Temp Pulse Pulse Resp BP Pulse Ox 04/25/17 15:31 86 17 98 04/25/17 13:27 86 17 107/71 98 04/25/17 11:40 82 18 137/65 97 04/25/17 10:41 69 17 146/65 98 04/25/17 09:43 67 17 155/67 96 04/25/17 07:49 97.1 F L 67 17 161/68 100 Intake and Output 04/25/17 04/25/17 04/25/17 06:59 14:59 22:59 Other: Weight 72.575 kg 72.58 kg Patient Weight 04/26/17 06:59 Weight 72.58 kg PHYSICAL EXAMINATION: GENERAL: The patient is alert and oriented x3, not in any acute distress. Well developed, well nourished. HEENT: Pupils are round and equally reacting to light. EOMI. No scleral icterus. No conjunctival pallor. Normocephalic, atraumatic. No pharyngeal erythema. No thyromegaly. CARDIOVASCULAR: S1 and S2 present. No murmurs, rubs, or gallops. PULMONARY: Chest is clear to auscultation, no wheezing or crackles. ABDOMEN: Soft, nontender, nondistended, normoactive bowel sounds. No palpable organomegaly. MUSCULOSKELETAL: No joint swelling or deformity. EXTREMITIES: No cyanosis, clubbing, or pedal edema. Patient has hematoma in the right groin area with significant bruise which is significantly large extending from groin and up to almost 2 cm about the mid thigh area. NEUROLOGICAL: Gross neurological examination did not reveal any focal deficits. SKIN: No rashes. Results CBC & Chem 7: 04/25/17 08:27 04/25/17 08:27 Labs: Abnormal Lab Results - Last 24 Hours (Table) 04/25/17 04/25/17 04/25/17 Range/Units 08:27 08:27 08:27 WBC 12.3 H (3.8-10.6) k/uL Neutrophils # 10.1 H (1.3-7.7) k/uL Potassium 5.8 H (3.5-5.1) mmol/L BUN 18 H (7-17) mg/dL Glucose 264 H (74-99) mg/dL Total Creatine Kinase 26 L (30-135) U/L Urine Glucose (UA) (Negative) Urine Blood (Negative) Urine Bacteria (None) /hpf Hyaline Casts (0-2) /lpf Urine Mucus (None) /hpf 04/25/17 Range/Units 12:27 WBC (3.8-10.6) k/uL Neutrophils # (1.3-7.7) k/uL Potassium (3.5-5.1) mmol/L BUN (7-17) mg/dL Glucose (74-99) mg/dL Total Creatine Kinase (30-135) U/L Urine Glucose (UA) 4+ H (Negative) Urine Blood Trace H (Negative) Urine Bacteria Rare H (None) /hpf Hyaline Casts 7 H (0-2) /lpf Urine Mucus Rare H (None) /hpf Thrombosis Risk Factor Assmnt - Choose All That Apply Each Factor Represents 1 point: Obesity (BMI >25) Each Risk Factor Represents 2 Points: Age 61-74 years, Patient confined to bed Thrombosis Risk Factor Assessment Total Risk Factor Score: 5 Thrombosis Risk Factor Assessment Level: High Risk Assessment and Plan Plan: 1 pseudoaneurysm and right groin hematoma status post cardiac catheterization, vascular surgery and cardiology were consulted. Pain management as mentioned above. #2 hyperkalemia: Patient is already having diarrhea because of which we are not giving her kayxelate. Lisinopril will be held. Patient is also on Lasix which will be held as well #3 leukocytosis: React to secondary to right groin hematoma without any other signs or symptoms of infection. #4 type 2 diabetes mellitus: He appeared to be uncontrolled will continue with her home regimen along with sliding scale nitration depending on her blood sugars here and need for sliding scale insulin #5 hypertension #6 hyperlipidemia #7 gastroesophageal reflux disease #8 osteoarthritis #9 hypothyroidism: TSH is within normal limits with methimazole which will be continued. For above-mentioned chronic medical problems will be required and continue her home medications monitor vital signs.
[2017-04-25 17:10] LABS: Glucose,Whole Blood 150 mg/dL (75-99)
[2017-04-25] MEDS ORDERED: THROMBIN (BOVINE) 5,000 UNIT VIAL MISCELLANE ONE (17:30)
[2017-04-25] MEDS ORDERED: SODIUM CHLORIDE 0.9% 1,000 ML IV ONE (18:04)
[2017-04-25] MEDS ORDERED: LIDOCAINE 2% INJ 20 MG/ML SQ ONE (18:05)
--- NOTE | 2017-04-25 19:31 | US ---
Ultrasound-guided compression and thrombin injection right groin pseudoaneurysm DATE OF EXAM: 04/25/2017 CLINICAL HISTORY: Postcardiac catheter right groin pseudoaneurysm The procedure was discussed with the patient. The risks, complications, benefits, and alternatives we re discussed and any questions were answered. This includes injection of thrombin for possible pseudo aneurysm thrombosis the possible risk of thrombin affecting the [place] blood vessels and potentially requiring surgery. Patient wanted to proceed with procedure. Informed consent was obtained. The patient was placed supine on the ultrasound table and prepped and draped in the usual sterile fas hion. All elements of maximal barrier and sterile technique were utilized. Approximately 30 minutes of intermittent compression was performed well pulses were monitored through out the exam prior to and post and during the procedure. Unsuccessful ultrasound compression. Persist ent pseudoaneurysm. Case discussed with referring surgeon. The risks, applications benefits alternatives discussed Under ultrasound guidance, access into the pleural pseudoaneurysm was achieved and there is placement of approximately 100 units of thrombin wi th complete thrombosis of the pseudoaneurysm. Referring surgeon present during exam. Repeat imaging d emonstrated a patent [place] vasculature. Pulses were identical prior to the procedure, during the pro cedure and post procedure. Patient without complaints. The patient was stable throughout the procedure and remained stable upon discharge from Department of Radiology. IMPRESSION: 1. Successful ultrasound-guided thrombin injection of right groin pseudoaneurysm. Case was discussed with referring physician and the patient's nurse and repeat ultrasound is recommended for the morning to confirm complete thrombosis
--- NOTE | 2017-04-25 19:31 | US ---
EXAMINATION TYPE: US inj pseudoaneurysm DATE OF EXAM: 04/25/2017 COMPARISON: NONE CLINICAL HISTORY: pseudo. EXAM PERFORMED: See dictation for ultrasound pseudoaneurysm compression.
[2017-04-25 20:50] LABS: Glucose,Whole Blood 223 mg/dL (75-99)
[2017-04-25] MEDS: PANTOPRAZOLE 40 MG TABLET PO SCH (21:42)
[2017-04-25] MEDS: PRAVASTATIN SODIUM 40 MG TAB PO SCH (21:42)
[2017-04-25] MEDS: METOPROLOL SUCCINATE (ER) 50 MG TAB.ER.24H PO SCH (21:42)
[2017-04-26 05:50] LABS: Glucose,Whole Blood 201 mg/dL (75-99)
[2017-04-26 06:38] LABS: CH 29.4; CHCM 32.9; HCT 33.8 % (34.0-46.0); HDW 2.53; MCH 29.4 pg (25.0-35.0); MCHC 32.7 g/dL (31.0-37.0); RBC 3.75 m/uL (3.80-5.40); RDW 14.3 % (11.5-15.5); WBC 10.5 k/uL (3.8-10.6)
[2017-04-26] MEDS: INSULIN LISPRO (humaLOG) 300 UNIT/3 ML VIAL SQ SCH ×4 (06:45→21:29)
[2017-04-26 06:57] LABS: Anion Gap 8 mmol/L; Blood Urea Nitrogen 14 mg/dL (7-17); Calcium 8.9 mg/dL (8.4-10.2); Carbon Dioxide 25 mmol/L (22-30); Chloride 104 mmol/L (98-107); Glucose 201 mg/dL (74-99); Non-African American GFR(MDRD) >60 (>60 ml/min/1.73 sqM); Potassium 5.1 mmol/L (3.5-5.1); Sodium 137 mmol/L (137-145)
[2017-04-26] MEDS: LINAGLIPTIN 5 MG TABLET PO SCH (08:09)
[2017-04-26] MEDS: METHIMAZOLE 5 MG TAB PO SCH (08:09)
[2017-04-26] MEDS ORDERED: ENOXAPARIN 40 MG/0.4 ML SYRINGE SQ SCH (09:00)
--- NOTE | 2017-04-26 09:53 | P.CRDCN ---
History of Present Illness Consult date: 04/26/17 Requesting physician: Kelsey Fernandez Reason for Consult (text): Right groin pseudoaneurysm Chief complaint: Right groin swelling and pain History of present illness: This is a pleasant 72-year-old female with history of hypertension, diabetes, hyperlipidemia, aortic stenosis, coronary artery disease, who was recently in the hospital on Wednesday at which time she underwent a transesophageal echocardiographic study as well as a heart catheterization by Dr. Addison. ONEIL revealed severe aortic stenosis, cardiac catheterization revealed mild disease involving the RCA, severe disease involving the proximal circumflex and mild disease in the LAD. Patient was seen in consultation by cardiothoracic surgery and as she is scheduled to follow-up with them as an outpatient for bypass surgery as well as aortic valve replacement. She presents to the hospital on this occasion with symptoms of severe pain and swelling in her right groin. She was found to have a significant pseudoaneurysm measuring 5 x 1.5 cm, they attempted to compress with ultrasound and subsequently injected thrombin yesterday. EKG on admission here shows a normal sinus rhythm with right bundle branch block pattern, no acute changes noted. Chest x-ray revealed chronic changes without any active cardiopulmonary disease. Blood pressure this morning 148/60 with a heart rate in the 70s to 98 % on room air. White blood cell count on admission 12.3, hemoglobin 14, 11 this morning. Potassium 5.1, BUN 14, creatinine 0.6. Magnesium level I.9, troponin 0.012, 0.028. At the time of my examination this morning, patient does complain of discomfort in the right groin however she states it's much less than when she initially came in. Past Medical History Past Medical History: Coronary Artery Disease (CAD), Cancer, Diabetes Mellitus, GERD/Reflux, Hyperlipidemia, Hypertension, Osteoarthritis (OA) Additional Past Medical History / Comment(s): aortic stenosis, right bundle branch block, basal cell carcinoma History of Any Multi-Drug Resistant Organisms: None Reported Past Surgical History: Cholecystectomy, Heart Catheterization Additional Past Surgical History / Comment(s): skin cancer removed, nasal surgery Past Anesthesia/Blood Transfusion Reactions: No Reported Reaction Past Psychological History: No Psychological Hx Reported Smoking Status: Current every day smoker Past Alcohol Use History: None Reported Past Drug Use History: None Reported - Past Family History Father Family Medical History: Myocardial Infarction ([place]) Mother Family Medical History: Cancer Sister(s) Family Medical History: Cancer Medications and Allergies Home Medications Medication Instructions Recorded Confirmed Type Alendronate Sodium 70 mg PO SA 04/19/17 04/25/17 History Cholecalciferol (Vitamin D3) 2,000 unit PO DAILY 04/19/17 04/25/17 History [Vitamin D3] Empagliflozin [Jardiance] 10 mg PO QAM 04/19/17 04/25/17 History Furosemide [Lasix] 20 mg PO QAM 04/19/17 04/25/17 History Krill/Om-3/Dha/Epa/Phospho/Ast 1 cap PO DAILY 04/19/17 04/25/17 History [[place]-3 Krill Oil 300 mg Sfgl] Lisinopril [Zestril] 10 mg PO HS 04/19/17 04/25/17 History Meloxicam 15 mg PO DAILY 04/19/17 04/25/17 History Methimazole [Tapazole] 5 mg PO DAILY 04/19/17 04/25/17 History Metoprolol Succinate [Toprol XL] 50 mg PO HS 04/19/17 04/25/17 History Multivitamins, Thera [Multivitamin 1 tab PO DAILY 04/19/17 04/25/17 History (formulary)] Omeprazole 20 mg PO HS 04/19/17 04/25/17 History Pravastatin Sodium [Pravachol] 40 mg PO HS 04/19/17 04/25/17 History sitaGLIPtin [Januvia] 100 mg PO DAILY 04/23/17 04/25/17 History Allergies Allergy/AdvReac Type Severity Reaction Status Date / Time aspirin Allergy Nausea & Verified 04/25/17 13:07 Vomiting Penicillins Allergy Rash/Hives Verified 04/25/17 13:07 Sulfa (Sulfonamide Allergy fever Verified 04/25/17 13:07 Antibiotics) blisters on lips Physical Exam Vitals: Vital Signs Temp Pulse Pulse Resp BP BP Pulse Ox 04/26/17 08:09 97.6 F 75 16 149/68 98 04/26/17 06:00 97.9 F 77 17 150/63 98 04/26/17 04:00 97.6 F 68 18 99 04/26/17 00:00 97.4 F L 70 19 166/70 99 04/25/17 22:00 97.4 F L 82 17 128/60 98 04/25/17 21:00 97.6 F 74 18 159/70 99 04/25/17 20:00 97.6 F 79 17 132/60 98 04/25/17 19:30 97.8 F 90 18 122/62 99 04/25/17 19:00 73 16 148/66 99 04/25/17 18:45 65 16 147/66 98 04/25/17 18:30 70 16 147/66 98 04/25/17 18:15 98.5 F 78 16 135/71 98 04/25/17 16:00 99.1 F 81 18 135/61 99 04/25/17 15:31 86 17 98 04/25/17 13:27 86 17 107/71 98 04/25/17 11:40 82 18 137/65 97 04/25/17 10:41 69 17 146/65 98 04/25/17 09:43 67 17 155/67 96 Intake and Output 04/25/17 04/26/17 04/26/17 22:59 06:59 14:59 Intake Total 10 180 Output Total 500 Balance 10 -500 180 Intake: IV 10 Oral 180 Output: Urine 500 Other: Voiding Method Toilet Toilet # Voids 0 1 # Bowel Movements 0 Weight 72.58 kg 71.5 kg PHYSICAL EXAMINATION: HEENT: Head is atraumatic, normocephalic. Pupils equal, round. Neck is supple. There is no elevated jugular venous pressure. HEART EXAMINATION: S1 and S2 systolic murmur is heard CHEST EXAMINATION: Lungs are clear to auscultation and precussion. No chest wall tenderness is noted on palpation or with deep breathing. ABDOMEN: Soft, nontender. Bowel sounds are heard. No organomegaly noted. Right groin reveals significant ecchymosis, soft, no bruit EXTREMITIES: 2+ peripheral pulses with no evidence of peripheral edema and no calf tenderness noted. NEUROLOGIC patient is awake, alert and oriented -3. . Results 04/26/17 06:16 04/26/17 06:16 Cardiac Enzymes 04/25/17 Range/Units 11:52 Troponin I 0.028 (0.000-0.034) ng/mL CBC 04/26/17 Range/Units 06:16 WBC 10.5 (3.8-10.6) k/uL RBC 3.75 L (3.80-5.40) m/uL Hgb 11.0 L D (11.4-16.0) gm/dL Hct 33.8 L (34.0-46.0) % Plt Count 150 (150-450) k/uL Comprehensive Metabolic Panel 04/26/17 Range/Units 06:16 Sodium 137 (137-145) mmol/L Potassium 5.1 (3.5-5.1) mmol/L Chloride 104 (98-107) mmol/L Carbon Dioxide 25 (22-30) mmol/L BUN 14 (7-17) mg/dL Creatinine 0.60 (0.52-1.04) mg/dL Glucose 201 H (74-99) mg/dL Calcium 8.9 (8.4-10.2) mg/dL Current Medications Generic Name Dose Route Start Last Admin Trade Name Freq PRN Reason Stop Dose Admin Acetaminophen 1,000 mg 04/25/17 15:10 Tylenol Tab PO Q6HR PRN Fever and/ or Mild Pain Hydrocodone Bitart/Acetaminophen 1 each 04/25/17 15:10 04/25/17 15:24 [place] 5-325 PO 1 each Q6HR PRN Administration Severe Pain Insulin Human Lispro 0 unit 04/26/17 07:30 04/26/17 06:45 Humalog SQ 2 unit ACHS DEISY Administration Protocol Linagliptin 5 mg 04/26/17 09:00 04/26/17 08:09 Tradjenta PO 5 mg DAILY DEISY Administration Methimazole 5 mg 04/26/17 09:00 04/26/17 08:09 Tapazole PO 5 mg DAILY DEISY Administration Metoprolol Succinate 50 mg 04/25/17 21:00 04/25/17 21:42 Toprol Xl PO 50 mg HS DEISY Administration Pantoprazole Sodium 40 mg 04/25/17 21:00 04/25/17 21:42 Protonix PO 40 mg HS DEISY Administration Pravastatin Sodium 40 mg 04/25/17 21:00 04/25/17 21:42 Pravachol PO 40 mg HS DEISY Administration Intake and Output 04/25/17 04/26/17 04/26/17 22:59 06:59 14:59 Intake Total 10 180 Output Total 500 Balance 10 -500 180 Intake: IV 10 Oral 180 Output: Urine 500 Other: Voiding Method Toilet Toilet # Voids 0 1 # Bowel Movements 0 Weight 72.58 kg 71.5 kg 04/26/17 06:16 04/26/17 06:16 EKG Interpretations (text) EKG shows a normal sinus rhythm with a right bundle branch block pattern. Assessment and Plan Plan: Assessment and plan #1 right groin pseudoaneurysm, status post thrombin injection #2 severe aortic stenosis #3 coronary artery disease, cardiac catheterization was performed on Wednesday which revealed mild disease in the RCA, severe disease in the proximal circumflex and mild disease in the LAD #4 Hypertension #5 hyperlipidemia #6 diabetes Plan We will repeat an ultrasound of the groin this morning. Resume the patient's home medications. Further recommendations to follow. DNP note has been reviewed, I agree with a documented findings and plan of care. Patient was seen and examined.
--- NOTE | 2017-04-26 10:13 | CONS ---
This is a 72-year-old female. Patient had heart catheterization on Wednesday. Patient came in with hematoma of the right groin and ultrasound showed patient has a hematoma with pseudoaneurysm. Patient underwent cardiac catheterization and ONEIL and found to have a valve regurgitation which he will follow up with cardiothoracic surgeon as an outpatient. Patient has history of coronary artery disease, history of cancer, history of diabetes mellitus, hyperlipidemia , hypertension, osteoarthritis. On examination, patient was seen in his room. Vital signs are stable. Lying comfortably in bed. She has some ecchymosis noted in the right groin area. Femoral is palpable bilateral. Posterior dorsalis pedis by the Doppler. Plan is discussed with Interventional Radiologist for decompression of the pseudoaneurysm. ( ) is on their way and patient will be taken to the [facility] for this intervention. Will follow with you. RAFAEL
--- NOTE | 2017-04-26 11:35 | US ---
EXAMINATION TYPE: US lower ext pseudo artery RT DATE OF EXAM: 04/26/2017 COMPARISON: Previous study dated 04/25/2017. CLINICAL HISTORY: follow up thrombin injection. EXAM PERFORMED: Grayscale and color Doppler duplex imaging performed of the groin, post cardiac chinedu ter to assess for pseudoaneurysm. SIDE PERFORMED: Right Color and Waveform Doppler performed to assess for the presence of pseudoaneurysm; Is there ultrasound evidence of a pseudoaneurysm: NO Is there evidence of AV shunting: No Is there a fluid collection present: Yes minimal amount IMPRESSION: EVIDENCE OF RIGHT GROIN HEMATOMA WITHOUT PSEUDOANEURYSM.
[2017-04-26 12:01] LABS: Glucose,Whole Blood 234 mg/dL (75-99)
--- NOTE | 2017-04-26 13:51 | P.PN ---
Subjective She is admitted for right groin hematoma post cardiac catheterization and the cardiology is according 1 more day of monitoring since her hemoglobin did drop by 4 points. Patient denied any fever, chills, nausea, vomiting, lightheadedness, dizziness, denied any significant pain in the right groin area, new focus no new focal weakness Objective - Vital Signs Vital signs: Vital Signs Temp 97.6 F 04/26/17 11:14 Pulse 77 04/26/17 11:14 Resp 17 04/26/17 11:14 BP 130/62 04/26/17 11:14 Pulse Ox 98 04/26/17 11:14 Intake & Output 04/25/17 04/26/17 04/26/17 18:59 06:59 18:59 Intake Total 10 417 Output Total 500 300 Balance 10 -500 117 Weight 72.58 kg 71.5 kg Intake: IV 10 Oral 417 Output: Urine 500 300 Other: Voiding Method Toilet Toilet # Voids 0 1 # Bowel Movements 0 - Exam PHYSICAL EXAMINATION: GENERAL: The patient is alert and oriented x3, not in any acute distress. Well developed, well nourished. HEENT: Pupils are round and equally reacting to light. EOMI. No scleral icterus. No conjunctival pallor. Normocephalic, atraumatic. No pharyngeal erythema. No thyromegaly. CARDIOVASCULAR: S1 and S2 present. No murmurs, rubs, or gallops. PULMONARY: Chest is clear to auscultation, no wheezing or crackles. ABDOMEN: Soft, nontender, nondistended, normoactive bowel sounds. No palpable organomegaly. MUSCULOSKELETAL: No joint swelling or deformity. EXTREMITIES: No cyanosis, clubbing, or pedal edema. Patient has hematoma in the right groin area with significant bruise which is significantly large extending from groin and up to almost 2 cm about the mid thigh area. NEUROLOGICAL: Gross neurological examination did not reveal any focal deficits. SKIN: No rashes. - Labs CBC & Chem 7: 04/26/17 06:16 04/26/17 06:16 Labs: Abnormal Lab Results - Last 24 Hours (Table) 04/25/17 04/25/17 04/26/17 Range/Units 16:44 20:50 05:49 RBC (3.80-5.40) m/uL Hgb (11.4-16.0) gm/dL Hct (34.0-46.0) % Glucose (74-99) mg/dL POC Glucose (mg/dL) 150 H 223 H 201 H (75-99) mg/dL 04/26/17 04/26/17 04/26/17 Range/Units 06:16 06:16 11:59 RBC 3.75 L (3.80-5.40) m/uL Hgb 11.0 L D (11.4-16.0) gm/dL Hct 33.8 L (34.0-46.0) % Glucose 201 H (74-99) mg/dL POC Glucose (mg/dL) 234 H (75-99) mg/dL Microbiology - Last 24 Hours (Table) 04/25/17 12:27 Urine Culture - Preliminary Urine,Voided Assessment and Plan Plan: 1 right groin hematoma status post cardiac catheterization, vascular surgery and cardiology were consulted. Pain management as mentioned above. Repeat ultrasound of the right groin did not show any increased to hematoma or any pseudoaneurysm. #2 hyperkalemia: Patient is already having diarrhea because of which we are not giving her kayxelate. Lisinopril will be held. Patient is also on Lasix which will be held as well #3 leukocytosis: React to secondary to right groin hematoma without any other signs or symptoms of infection. #4 type 2 diabetes mellitus: He appeared to be uncontrolled will continue with her home regimen along with sliding scale nitration depending on her blood sugars here and need for sliding scale insulin #5 hypertension #6 hyperlipidemia #7 gastroesophageal reflux disease #8 osteoarthritis #9 hypothyroidism: TSH is within normal limits with methimazole which will be continued.
[2017-04-26 17:30] LABS: Glucose,Whole Blood 190 mg/dL (75-99)
[2017-04-26 19:12] LABS: Basophils # (A) 0.1 k/uL (0-0.2); Basophils % (A) 1 %; CH 29.4; CHCM 32.9; Eosinophils # (A) 0.1 k/uL (0-0.7); Eosinophils % (A) 1 %; HCT 31.8 % (34.0-46.0); HDW 2.52; HGB 10.5 gm/dL (11.4-16.0); Luc # (Auto) 0.11; Luc % (Auto) 1; Lymphocytes # (A) 1.5 k/uL (1.0-4.8); Lymphocytes % (A) 17 %; MCH 29.9 pg (25.0-35.0); MCHC 33.2 g/dL (31.0-37.0); Mean Platelet Volume 10.6; Monocytes # (A) 0.5 k/uL (0-1.0); Monocytes % (A) 5 %; Neutrophils # (A) 6.6 k/uL (1.3-7.7); Neutrophils % (A) 74 %; RBC 3.53 m/uL (3.80-5.40); RDW 14.6 % (11.5-15.5); WBC 8.9 k/uL (3.8-10.6); WBC (Perox) 9.53
[2017-04-26] MEDS: METOPROLOL SUCCINATE (ER) 50 MG TAB.ER.24H PO SCH (20:20)
[2017-04-26] MEDS: PANTOPRAZOLE 40 MG TABLET PO SCH (20:20)
[2017-04-26] MEDS: PRAVASTATIN SODIUM 40 MG TAB PO SCH (20:20)
[2017-04-26 20:56] LABS: Glucose,Whole Blood 263 mg/dL (75-99)
[2017-04-26] MEDS: HYDROcodone/APAP 5-325MG 1 EACH TAB PO PRN (21:33)
[2017-04-27 06:02] LABS: Glucose,Whole Blood 215 mg/dL (75-99)
[2017-04-27] MEDS: INSULIN LISPRO (humaLOG) 300 UNIT/3 ML VIAL SQ SCH ×2 (06:19→12:25)
[2017-04-27 06:49] LABS: Basophils # (A) 0.1 k/uL (0-0.2); Basophils % (A) 1 %; CH 29.5; CHCM 32.7; Eosinophils # (A) 0.3 k/uL (0-0.7); Eosinophils % (A) 3 %; HCT 30.3 % (34.0-46.0); HDW 2.51; HGB 10.1 gm/dL (11.4-16.0); Luc # (Auto) 0.18; Luc % (Auto) 2; Lymphocytes # (A) 1.8 k/uL (1.0-4.8); Lymphocytes % (A) 19 %; MCH 30.2 pg (25.0-35.0); MCHC 33.2 g/dL (31.0-37.0); MCV 90.9 fL (80.0-100.0); Mean Platelet Volume 10.3; Monocytes # (A) 0.6 k/uL (0-1.0); Monocytes % (A) 6 %; Neutrophils # (A) 6.6 k/uL (1.3-7.7); Neutrophils % (A) 69 %; RBC 3.34 m/uL (3.80-5.40); RDW 14.1 % (11.5-15.5); WBC 9.6 k/uL (3.8-10.6)
--- NOTE | 2017-04-27 08:51 | P.PN ---
Subjective Principal diagnosis: Right groin pseudoaneurysm This is a pleasant 72-year-old female with history of hypertension, diabetes, hyperlipidemia, aortic stenosis, coronary artery disease, who was recently in the hospital on Wednesday at which time she underwent a transesophageal echocardiographic study as well as a heart catheterization by Dr. Addison. ONEIL revealed severe aortic stenosis, cardiac catheterization revealed mild disease involving the RCA, severe disease involving the proximal circumflex and mild disease in the LAD. Patient was seen in consultation by cardiothoracic surgery and as she is scheduled to follow-up with them as an outpatient for bypass surgery as well as aortic valve replacement. She presents to the hospital on this occasion with symptoms of severe pain and swelling in her right groin. She was found to have a significant pseudoaneurysm measuring 5 x 1.5 cm, they attempted to compress with ultrasound and subsequently injected thrombin. EKG on admission here shows a normal sinus rhythm with right bundle branch block pattern, no acute changes noted. Chest x- ray revealed chronic changes without any active cardiopulmonary disease. 04/27/2017 Ultrasound of the groin was repeated yesterday, revealed persistent evidence of hematoma with no evidence of pseudoaneurysm. Hemoglobin last evening 10.5, 10.1 this morning. Overall patient feels well, groin is much less tender. Objective - Vital Signs Vital signs: Vital Signs Temp 97.4 F L 04/27/17 04:00 Pulse 64 04/27/17 04:00 Resp 18 04/27/17 04:00 BP 128/58 04/27/17 04:00 Pulse Ox 96 04/27/17 04:00 Intake & Output 04/26/17 04/27/17 04/27/17 18:59 06:59 18:59 Intake Total 597 Output Total 300 1000 Balance 297 -1000 Weight 70.9 kg Intake: Oral 597 Output: Urine 300 1000 Other: Voiding Method Toilet Toilet # Voids 1 1 - Exam PHYSICAL EXAMINATION: HEENT: Head is atraumatic, normocephalic. Pupils equal, round. Neck is supple. There is no elevated jugular venous pressure. HEART EXAMINATION: S1 and S2 systolic murmur is heard CHEST EXAMINATION: Lungs are clear to auscultation and precussion. No chest wall tenderness is noted on palpation or with deep breathing. ABDOMEN: Soft, nontender. Bowel sounds are heard. No organomegaly noted. Right groin reveals significant ecchymosis, soft, no bruit EXTREMITIES: 2+ peripheral pulses with no evidence of peripheral edema and no calf tenderness noted. NEUROLOGIC patient is awake, alert and oriented -3. - Labs CBC & Chem 7: 04/27/17 05:49 04/26/17 06:16 Labs: Abnormal Lab Results - Last 24 Hours (Table) 04/26/17 04/26/17 04/26/17 Range/Units 11:59 17:27 18:54 RBC 3.53 L (3.80-5.40) m/uL Hgb 10.5 L (11.4-16.0) gm/dL Hct 31.8 L (34.0-46.0) % Plt Count 130 L (150-450) k/uL POC Glucose (mg/dL) 234 H 190 H (75-99) mg/dL 04/26/17 04/27/17 04/27/17 Range/Units 20:55 05:49 06:00 RBC 3.34 L (3.80-5.40) m/uL Hgb 10.1 L (11.4-16.0) gm/dL Hct 30.3 L (34.0-46.0) % Plt Count 132 L (150-450) k/uL POC Glucose (mg/dL) 263 H 215 H (75-99) mg/dL Microbiology - Last 24 Hours (Table) 04/25/17 12:27 Urine Culture - Final Urine,Voided Assessment and Plan Plan: Assessment and plan #1 right groin pseudoaneurysm, status post thrombin injection #2 severe aortic stenosis #3 coronary artery disease, cardiac catheterization was performed on Wednesday which revealed mild disease in the RCA, severe disease in the proximal circumflex and mild disease in the LAD #4 Hypertension #5 hyperlipidemia #6 diabetes Plan From cardiology's perspective, patient may be able to be discharged home today. She has a follow-up appointment with Dr. Bedoya in the office on Wednesday which she has been instructed to keep. We will also have her obtain CBC as an outpatient tomorrow and . DNP note has been reviewed, I agree with a documented findings and plan of care. Patient was seen and examined.
[2017-04-27] MEDS ORDERED: MUPIROCIN 2% OINT 22 GM TUBE TOPICAL SCH (09:00)
[2017-04-27 09:47] LABS: Hemoglobin A1C 7.1 % (4.2-6.1)
[2017-04-27] MEDS: LINAGLIPTIN 5 MG TABLET PO SCH (10:14)
[2017-04-27] MEDS: METHIMAZOLE 5 MG TAB PO SCH (10:14)
[2017-04-27 11:57] LABS: Glucose,Whole Blood 198 mg/dL (75-99)
--- NOTE | 2017-04-27 12:35 | P.DS ---
Providers Date of admission: 04/25/17 13:26 Attending physician: Kelsey Fernandez Consults: 04/25/17 13:26 Consult Physician Urgent Consulting Provider: Sarah Singh Consult Reason/Comments: elevTrop Do you want consulting provider notified?: Yes 04/25/17 15:08 Consult Physician Urgent Consulting Provider: Satnam Saldaña Consult Reason/Comments: hematoma/psudo Do you want consulting provider notified?: Yes Primary care physician: Howard [facility] Course: She is admitted for right groin hematoma post cardiac catheterization and the cardiology is according 1 more day of monitoring since her hemoglobin did drop by 4 points. 04/27/2017 Patient's hemoglobin is stable and patient clinically does not appear to have any more bleed. Patient is not on antiplatelet therapy patient will be discharged today. Because of her hyperkalemia lisinopril was discontinued patient down the line can be started on low-dose of lisinopril with close monitoring of potassium levels as an outpatient. Patient will benefit from lisinopril as nephro protective agent because of her diabetes mellitus history Patient Condition at Discharge: Fair Plan - Discharge Summary New Discharge Prescriptions: Discontinued Lisinopril [Zestril] 10 mg PO HS No Action Multivitamins, Thera [Multivitamin (formulary)] 1 tab PO DAILY Pravastatin Sodium [Pravachol] 40 mg PO HS Methimazole [Tapazole] 5 mg PO DAILY Meloxicam 15 mg PO DAILY Furosemide [Lasix] 20 mg PO QAM Omeprazole 20 mg PO HS Metoprolol Succinate [Toprol XL] 50 mg PO HS Krill/Om-3/Dha/Epa/Phospho/Ast [[place]-3 Krill Oil 300 mg Sfgl] 1 cap PO DAILY Empagliflozin [Jardiance] 10 mg PO QAM Cholecalciferol (Vitamin D3) [Vitamin D3] 2,000 unit PO DAILY Alendronate Sodium 70 mg PO SA sitaGLIPtin [Januvia] 100 mg PO DAILY Discharge Medication List Alendronate Sodium 70 mg PO SA 04/19/17 [History] Cholecalciferol (Vitamin D3) [Vitamin D3] 2,000 unit PO DAILY 04/19/17 [History] Empagliflozin [Jardiance] 10 mg PO QAM 04/19/17 [History] Furosemide [Lasix] 20 mg PO QAM 04/19/17 [History] Krill/Om-3/Dha/Epa/Phospho/Ast [[place]-3 Krill Oil 300 mg Sfgl] 1 cap PO DAILY [History] Meloxicam 15 mg PO DAILY 04/19/17 [History] Methimazole [Tapazole] 5 mg PO DAILY 04/19/17 [History] Metoprolol Succinate [Toprol XL] 50 mg PO HS 04/19/17 [History] Multivitamins, Thera [Multivitamin (formulary)] 1 tab PO DAILY 04/19/17 [History ] Omeprazole 20 mg PO HS 04/19/17 [History] Pravastatin Sodium [Pravachol] 40 mg PO HS 04/19/17 [History] sitaGLIPtin [Januvia] 100 mg PO DAILY 04/23/17 [History] Follow up Appointment(s)/Referral(s): Ozzie Addison MD [STAFF PHYSICIAN] - 04/30/17 1:30 pm Paulina Patel MD [STAFF PHYSICIAN] - 05/07/17 11:00 am Howard Glover MD [Primary Care Provider] - 1-2 days Patient Instructions/Handouts: Aortic Stenosis (DC), Anemia (DC), Pseudoaneurysm (DC) Discharge Disposition: HOME SELF-CARE
[2017-04-27 13:04] VITALS: RESP 17
[2017-04-27 13:05] VITALS: BP 140/60; PULSE 71; TEMP 97.3
--- NOTE | 2017-04-27 13:40 | CDI ---
In responding to this query, please exercise your independent professional judgment. The [facility] Coding Staff and Clinical Documentation Specialists appreciate your assistance in clarifying documentation, maintaining compliance with coding guidelines, accurately documenting patients condition and capturing severity of illness. The fact that a question is asked does not imply that any particular answer is desired or expected. Communication forms are a method of clarifying documentation and are not made part of the Legal Health Record. Thank you in advance for your clarification. Last Revision, August 2015 Shira Roche [address] [facility] [place] [address] Documentation Clarification Form Date: 04/27/2017 1:01:00 PM From: Noelle Mcginnis Admit Date: 04/25/2017 1:26:00 PM Patient Name: Kasey Justin Visit Number: [id number] Discharge Date: Dr. Erica Granados A diagnosis of anemia lacks specificity to accurately reflect your patients severity of condition and clarification is needed. Patient history/risk factors: Coronary artery disease, Cancer Diabetes Mellitus , Hypertension Clinical Indicators: ER with episode of diaphoresis, severe pain in groin with recent cardiac catheterization. Found worsening hematoma in the right groin and pseudoaneurysm. 04/26/17 Progress note: 1 more day of monitoring since her hemoglobin did drop by 4 points. Hemoglobin: 14.0, 11.0, 10.5, 10.1 Hematocrit: 42.2, 33.8, 31.8, 30. 3 Treatment: Monitor Labs Discharge instructions for anemia Multivitamin PO Daily In order to capture the severity of condition, please clarify the type of anemia and etiology if known: Acute blood loss anemia Acute on chronic blood loss anemia Chronic blood loss anemia Iron deficiency anemia Hemolytic anemia Anemia of chronic kidney disease Unable to determine Other, please specify Please document in your progress notes and discharge summary in order to capture severity of illness and risk of mortality. Include clinical findings that support your diagnosis. FYI: Press F11 to launch patient chart. Place X here if this finding has no clinical significance, is not applicable or if you are not able to provide any additional documentation. RAFAEL
--- NOTE | 2017-05-10 15:31 | CDI ---
In responding to this query, please exercise your independent professional judgment. The [facility] Coding Staff and Clinical Documentation Specialists appreciate your assistance in clarifying documentation, maintaining compliance with coding guidelines, accurately documenting patients condition and capturing severity of illness. The fact that a question is asked does not imply that any particular answer is desired or expected. Communication forms are a method of clarifying documentation and are not made part of the Legal Health Record. Thank you in advance for your clarification. Last Revision, August [address] [facility] [place] [address] Documentation Clarification Form Date: 04/27/2017 1:01:00 PM From: Noelle Mcginnis Admit Date: 04/25/2017 1:26:00 PM Patient Name: Kasey Justin Visit Number: [id number] Discharge Date: Dr. Erica Granados A diagnosis of anemia lacks specificity to accurately reflect your patients severity of condition and clarification is needed. Patient history/risk factors: Coronary artery disease, Cancer Diabetes Mellitus , Hypertension Clinical Indicators: ER with episode of diaphoresis, severe pain in groin with recent cardiac catheterization. Found worsening hematoma in the right groin a pseudoaneurysm. 04/26/17 Progress note: 1 more day of monitoring since her hemoglobin did drop by 4 points. Hemoglobin: 14.0, 11.0, 10.5, 10.1 Hematocrit: 42.2, 33.8, 31.8, 30. 3 Treatment: Monitor Labs Discharge instruction for anemia Multivitamin daily In order to capture the severity of condition, please clarify the type of anemia and etiology if known: Acute blood loss anemia Acute on chronic blood loss anemia Chronic blood loss anemia Iron deficiency anemia Hemolytic anemia Anemia of chronic kidney disease Unable to determine Other, please specify Please document in your progress notes and discharge summary in order to capture severity of illness and risk of mortality. Include clinical findings that support your diagnosis. FYI: Press F11 to launch patient chart. RAFAEL
== END 2017-04-27 15:51 | disposition home or self-care (01) | DRG 920 ==
LOC: EC 07:48 → 4MS4W 13:26 → 6SEL 14:59
PROVIDERS: ADMIT Hospitalist; ATTEND Hospitalist
PROC: 3E053GC Introduction of Other Therapeutic Substance into Peripheral Artery, Percutaneous Approach (ICD-10-PCS; principal; 2017-04-25)
DX: I97.630 Postprocedural hematoma of a circulatory system organ or structure following a cardiac catheterization (principal); D62 Acute posthemorrhagic anemia; E11.65 Type 2 diabetes mellitus with hyperglycemia; I72.8 Aneurysm of other specified arteries; E87.5 Hyperkalemia; I35.2 Nonrheumatic aortic (valve) stenosis with insufficiency; I45.10 Unspecified right bundle-branch block; I25.10 Atherosclerotic heart disease of native coronary artery without angina pectoris; R19.7 Diarrhea, unspecified; E03.9 Hypothyroidism, unspecified; D72.829 Elevated white blood cell count, unspecified; I10 Essential (primary) hypertension; R74.8 Abnormal levels of other serum enzymes; E78.5 Hyperlipidemia, unspecified; M19.90 Unspecified osteoarthritis, unspecified site; R32 Unspecified urinary incontinence; R61 Generalized hyperhidrosis; R15.9 Full incontinence of feces; K21.9 Gastro-esophageal reflux disease without esophagitis; F17.200 Nicotine dependence, unspecified, uncomplicated; Z85.828 Personal history of other malignant neoplasm of skin; Z79.899 Other long term (current) drug therapy; Z90.49 Acquired absence of other specified parts of digestive tract; Z82.49 Family history of ischemic heart disease and other diseases of the circulatory system; Z88.6 Allergy status to analgesic agent; Z88.0 Allergy status to penicillin; Z88.2 Allergy status to sulfonamides; Z79.84 Long term (current) use of oral hypoglycemic drugs; Z80.9 Family history of malignant neoplasm, unspecified
CPT/HCPCS: 36002; 36415; 71010; 76936; 80048; 80053; 81001; 82550; 82553; 83036; 83735; 84100; 84443; 84484; 85025; 85027; 85610; 85730; 87086; 93005; 93975; 94760; 99285

== ENCOUNTER → 2017-07-01 | Outpatient (CLI) | payer MEDICARE ==
[2017-07-01 13:51] LABS: EKG EKG PERFORMED
[2017-07-01 14:33] LABS: Appearance,Urine Clear (Clear); Bilirubin,Urine Negative (Negative); CHCM 32.1; Glucose,Urine (UA) 4+ (Negative); HCT 42.3 % (34.0-46.0); HDW 2.57; Ketones,Urine Negative (Negative); Leukocyte Esterase,Urine Negative (Negative); MCH 29.3 pg (25.0-35.0); MCHC 32.3 g/dL (31.0-37.0); MCV 90.8 fL (80.0-100.0); Mean Platelet Volume 9.2; Nitrite,Urine Negative (Negative); Protein,Urine Negative (Negative); RBC 4.66 m/uL (3.80-5.40); Specific Gravity,Urine 1.003 (1.001-1.035); UA Billing (MACRO vs. MICRO) CHEM; Urobilinogen,Urine <2.0 mg/dL (<2.0); WBC 7.4 k/uL (3.8-10.6)
[2017-07-01 14:39] LABS: HGB 13.7 gm/dL (11.4-16.0)
[2017-07-01 14:40] LABS: Partial Thromboplastin Time 26.3 sec (22.0-30.0); Prothrombin Time 10.3 sec (9.0-12.0)
[2017-07-01 14:55] LABS: ALT 23 U/L (9-52); AST 20 U/L (14-36); Alkaline Phosphatase 69 U/L (38-126); Anion Gap 13 mmol/L; Blood Urea Nitrogen 21 mg/dL (7-17); Calcium 9.5 mg/dL (8.4-10.2); Carbon Dioxide 25 mmol/L (22-30); Chloride 103 mmol/L (98-107); Cholesterol 157 mg/dL (<200); Glucose 145 mg/dL (74-99); HDL Cholesterol 56 mg/dL (40-60); Magnesium 1.6 mg/dL (1.6-2.3); Non-African American GFR(MDRD) >60 (>60 ml/min/1.73 sqM); Potassium 4.5 mmol/L (3.5-5.1); Sodium 141 mmol/L (137-145); Total Bilirubin 0.2 mg/dL (0.2-1.3); Total Protein 7.3 g/dL (6.3-8.2)
[2017-07-01 21:18] LABS: Hemoglobin A1C 6.1 % (4.2-6.1)
--- NOTE | 2017-07-02 07:46 | XR ---
EXAMINATION TYPE: XR chest 2V DATE OF EXAM: 07/01/2017 COMPARISON: 04/25/2017 HISTORY: Presurgical clearance TECHNIQUE: Frontal and lateral views of the chest are obtained. FINDINGS: There is no focal air space opacity, pleural effusion, or pneumothorax seen. The cardiac silhouette size is within normal limits. The osseous structures are intact. Mild degenerative clemente es of the thoracic spine are noted. Degenerative changes are also seen of the glenohumeral joints and acromioclavicular joints, mild in degree. IMPRESSION: No acute cardiopulmonary process.
--- NOTE | 2017-07-19 08:51 | P.PN ---
Progress Note - Text Progress Note Date: 07/01/17 5 meter walk done on 07/01/17: 1. 4.66 sec, 2. 4.77 sec, 3. 5.5 sec
== END | disposition home or self-care (01) ==
LOC: LABPAT 13:34
PROVIDERS: ATTEND Surgery
DX: Z01.818 Encounter for other preprocedural examination (principal)
CPT/HCPCS: 36415; 71020; 80053; 80061; 81003; 83036; 83735; 83880; 84443; 84484; 85027; 85610; 85730; 86850; 86900; 86901; 86920; 87070; 87086; 93005; 94150

== ENCOUNTER 2017-07-09 05:37 | Inpatient (IN) | payer MEDICARE ==
[~2017-07-09 05:37] MED LIST: ALBUMIN HUMAN 25% 50 ML IV ONE; ALBUMIN HUMAN 5% 500 ML IVPB ONE; ATORVASTATIN 10 MG TAB PO ONE; CALCIUM CHLORIDE 100 MG/ML 10 ML SYRINGE IV ONE; CHLORHEXIDINE GLUCONATE 15 ML CUP MUCOUS MEM ONE; CLEVIDIPINE BUTYRATE 25 MG in EMPTY BAG 1 BAG IV ONE; DEXTROSE 5% IN WATER 1,000 ML with POTASSIUM CHLORIDE 110 MEQ, MAGNESIUM SULFATE 16 MEQ... IV ONE; DEXTROSE 5% IN WATER 1,000 ML with POTASSIUM CHLORIDE 25 MEQ, SODIUM CHLORIDE 4MEQ/ML V... IV ONE; HEPARIN SODIUM 1,000 UN/ML (10ML VL) IV ONE; INSULIN REGULAR 100 UNIT in SODIUM CHLORIDE 0.9% 100 ML IV ONE; LACTATED RINGERS 1,000 ML IV ONE; LACTATED RINGERS 1,000 ML IV SCH; MAGNESIUM SULFATE MG 500 MG/ML VIAL IV ONE; MANNITOL 25% 12.5 GM/50 ML VIAL IV ONE; METOPROLOL TARTRATE 12.5 MG TAB PO ONE; MIDAZOLAM 2 MG/2 ML VIAL IV PRN; MUPIROCIN 2% OINT 22 GM TUBE NASAL ONE; NITROGLYCERIN SL TABS 0.4 MG TAB SUBLINGUAL ONE; NITROGLYCERIN-D5W PMX 25 MG/250 ML BTL IV ONE; NITROGLYCERIN-D5W PMX 50 MG in DEXTROSE/WATER 1 250ML.BAG IV ONE; NOREPINEPHRIN 4 MG-0.9% NS PMX 4 MG/250 ML ML IV ONE; PHENYLEPHRINE 40 MG in SODIUM CHLORIDE 0.9% 250 ML IV ONE; PHENYLEPHRINE-0.9% NACL SYG 1 MG/10 ML SYRINGE IV ONE; PROPOFOL 1,000 MG/100 ML VIAL IV ONE; PROTAMINE SULFATE 10 MG/ML 25 ML VIAL IV ONE; PROTAMINE SULFATE 250 MG in EMPTY BAG 1 BAG IV ONE; SODIUM BICARB 8.4% 50 ML SYR (1 MEQ/ML) IV ONE; SODIUM CHLORIDE 0.9% 1,000 ML IV ONE; TRANEXAMIC ACID 2,000 MG in SODIUM CHLORIDE 0.9% 180 ML IV ONE; ceFAZolin 1,000 MG in SODIUM CHLORIDE 0.9% IRRIGATIO 1,000 ML IRRIGATION ONE; ceFAZolin 2,000 MG in SODIUM CHLORIDE 0.9% 30 ML IVPB ONE
[2017-07-09] MEDS ORDERED: HEPARIN SODIUM,PORCINE 10,000 UNIT/ML 1 ML VIAL ONE (08:08)
[2017-07-09] MEDS ORDERED: PHENYLEPHRINE-0.9% NACL SYG 1 MG/10 ML SYRINGE ONE (08:08)
[2017-07-09] MEDS ORDERED: VECURONIUM 10 MG VIAL IV ONE (08:08)
[2017-07-09] MEDS ORDERED: fentaNYL (PF) 50 MCG/ML 2 ML AMP ONE (08:08)
[2017-07-09] MEDS ORDERED: ELECTROLYTE-R (PH 7.4) 1,000 ML IV.SOLN IV ONE (08:08)
[2017-07-09] MEDS ORDERED: ALBUMIN HUMAN 5% 250 ML BOTTLE IVPB ONE (08:08)
[2017-07-09] MEDS ORDERED: PROPOFOL 10 MG/ML 20 ML VIAL IV ONE (08:08)
[2017-07-09] MEDS ORDERED: SUCCINYLCHOLINE CHLORIDE 100 MG/5 ML SYR IV ONE (08:08)
[2017-07-09] MEDS ORDERED: SODIUM CHLORIDE 0.9% 100 ML BAG ONE (08:08)
[2017-07-09] MEDS ORDERED: fentaNYL (PF) 50 MCG/ML 50 ML VIAL ONE (08:08)
[2017-07-09] MEDS ORDERED: SODIUM CHLORIDE 0.9% IRRIG 1,000 ML BTL IRRIGATION ONE (08:08)
[2017-07-09] MEDS ORDERED: TRANEXAMIC ACID 1,000 MG/10 ML VIAL ONE (08:08)
[2017-07-09] MEDS ORDERED: MIDAZOLAM 2 MG/2 ML VIAL ONE (08:08)
[2017-07-09] MEDS: ceFAZolin 2,000 MG in SODIUM CHLORIDE 0.9% 30 ML IVPB ONE ×2 (08:40→10:00)
[2017-07-09 08:53] LABS: Glucose,Whole Blood 133 mg/dL (75-99)
[2017-07-09] MEDS: HEPARIN SODIUM,PORCINE 5,000 UNIT in SODIUM CHLORIDE 0.9% 500 ML IV ONE ×2 (09:03→10:00)
[2017-07-09] MEDS: PAPAVERINE 360 MG in SODIUM CHLORIDE 0.9% 90 ML IV ONE ×2 (09:03→10:01)
[2017-07-09 09:48] LABS: Glucose,Whole Blood 134 mg/dL (75-99)
[2017-07-09 10:50] LABS: Glucose,Whole Blood 301 mg/dL (75-99)
[2017-07-09 11:03] LABS: Glucose,Whole Blood 275 mg/dL (75-99)
[2017-07-09 11:53] LABS: Glucose,Whole Blood 278 mg/dL (75-99)
[2017-07-09 12:03] LABS: Glucose,Whole Blood 261 mg/dL (75-99)
[2017-07-09 12:36] LABS: Glucose,Whole Blood 272 mg/dL (75-99)
[2017-07-09 13:25] LABS: Glucose,Whole Blood 171 mg/dL (75-99)
[2017-07-09] MEDS ORDERED: ALBUMIN HUMAN 5% 250 ML IVPB ONE ×2 (13:56→15:16)
[2017-07-09] MEDS ORDERED: ONDANSETRON 4 MG/2 ML VIAL IVP PRN (14:25)
[2017-07-09] MEDS ORDERED: Phosphorus Replacement Protoco 1 EACH MISC MISCELLANE PRN (14:25)
[2017-07-09] MEDS ORDERED: NITROGLYCERIN-D5W PMX 50 MG in DEXTROSE/WATER 1 250ML.BAG IV SCH (14:25)
[2017-07-09] MEDS ORDERED: METOCLOPRAMIDE 5 MG/ML 2 ML VIAL IVP PRN (14:25)
[2017-07-09] MEDS ORDERED: NOREPINEPHRINE 4 MG in SODIUM CHLORIDE 0.9% 250 ML IV SCH (14:25)
[2017-07-09] MEDS ORDERED: CALCIUM GLUCONATE 2,000 MG in SODIUM CHLORIDE 0.9% 100 ML IVPB PRN (14:25)
[2017-07-09] MEDS ORDERED: Magnesium Replacement Protocol 1 EACH MISC MISCELLANE PRN (14:25)
[2017-07-09] MEDS ORDERED: Potassium Replacement Protocol 1 EACH MISC MISCELLANE PRN ×2 (14:25→15:39)
[2017-07-09] MEDS ORDERED: ALBUMIN HUMAN 5% 250 ML in EMPTY BAG 1 BAG IVPB PRN (14:25)
[2017-07-09] MEDS ORDERED: PROPOFOL 1,000 MG/100 ML VIAL IV SCH (14:25)
[2017-07-09] MEDS ORDERED: BENZOCAINE/MENTHOL LOZENG 1 EACH LOZENGE MUCOUS MEM PRN (14:25)
[2017-07-09] MEDS: LACTATED RINGERS 1,000 ML IV SCH (14:41)
--- NOTE | 2017-07-09 14:52 | XR ---
EXAMINATION TYPE: XR chest 1V portable DATE OF EXAM: 07/09/2017 HISTORY: Post Op CABG COMPARISON: 07/01/2017 TECHNIQUE: Single view of the chest is submitted. FINDINGS: Endotracheal tube, NG tube, SG catheter, mediastinal drains and chest tubes are appropriately placed. Post operative changes of CABG. No sizeable pneumothorax. There is pulmonary venous congestion with mild interstitial edema. The heart is mildly enlarged. IMPRESSION: 1. Post operative changes of CABG.
[2017-07-09 14:56] LABS: Glucose,Whole Blood 85 mg/dL (75-99)
[2017-07-09 14:59] LABS: Basophils % (A) 1 %; CHCM 31.8; Eosinophils # (A) 0.1 k/uL (0-0.7); Eosinophils % (A) 1 %; HCT 27.1 % (34.0-46.0); HDW 2.61; Luc # (Auto) 0.06; Luc % (Auto) 1; Lymphocytes # (A) 0.7 k/uL (1.0-4.8); Lymphocytes % (A) 11 %; MCH 29.5 pg (25.0-35.0); MCHC 33.4 g/dL (31.0-37.0); MCV 88.2 fL (80.0-100.0); Mean Platelet Volume 9.4; Monocytes # (A) 0.2 k/uL (0-1.0); Monocytes % (A) 3 %; Neutrophils # (A) 5.8 k/uL (1.3-7.7); Neutrophils % (A) 84 %; RBC 3.07 m/uL (3.80-5.40); WBC 6.9 k/uL (3.8-10.6); WBC (Perox) 7.01
[2017-07-09 15:03] LABS: Ionized Calcium 4.4 mg/dL (4.5-5.3)
[2017-07-09 15:04] LABS: INR 1.4 (<1.2); Partial Thromboplastin Time 33.7 sec (22.0-30.0); Prothrombin Time 13.6 sec (9.0-12.0)
[2017-07-09 15:05] LABS: HGB 9.1 gm/dL (11.4-16.0)
[2017-07-09 15:08] LABS: Glucose,Whole Blood 71 mg/dL (75-99)
[2017-07-09 15:15] LABS: ALT 34 U/L (9-52); AST 53 U/L (14-36); Alkaline Phosphatase 29 U/L (38-126); Anion Gap 9 mmol/L; Blood Urea Nitrogen 19 mg/dL (7-17); Calcium 7.6 mg/dL (8.4-10.2); Carbon Dioxide 24 mmol/L (22-30); Chloride 107 mmol/L (98-107); Glucose 79 mg/dL (74-99); Magnesium 2.3 mg/dL (1.6-2.3); Non-African American GFR(MDRD) >60 (>60 ml/min/1.73 sqM); Potassium 3.6 mmol/L (3.5-5.1); Sodium 140 mmol/L (137-145); Total Bilirubin 0.3 mg/dL (0.2-1.3); Total Protein 4.5 g/dL (6.3-8.2)
[2017-07-09 15:24] LABS: Glucose,Whole Blood 62 mg/dL (75-99)
[2017-07-09] MEDS ORDERED: DEXTROSE 50%-WATER 50 ML SYRINGE IVP STA (15:39)
[2017-07-09 15:42] LABS: Glucose,Whole Blood 208 mg/dL (75-99)
[2017-07-09 15:44] LABS: ABG HCO3 24 mmol/L (21-25); ABG PCO2 45 mmHg (35-45); ABG PH 7.34 (7.35-7.45); ABG PO2 >420 mmHg (83-108)
[2017-07-09 15:45] LABS: ABG TCO2 25 mmol/L (19-24)
[2017-07-09] MEDS: IPRATROPIUM-ALBUTEROL 3 ML NEB INHALATION SCH ×3 (15:46→23:45)
[2017-07-09] MEDS: CLEVIDIPINE BUTYRATE 25 MG in EMPTY BAG 1 BAG IV SCH ×3 (15:46→20:44)
[2017-07-09] MEDS: POTASSIUM CHLORIDE 10 MEQ in WATER FOR INJECTION 1 100ML.BAG IVPB SCH ×2 (15:51→17:55)
[2017-07-09] MEDS: ceFAZolin 2 GM in SODIUM CHLORIDE 0.9% 100 ML IVPB SCH ×2 (15:51→23:02)
[2017-07-09 16:21] LABS: Glucose,Whole Blood 158 mg/dL (75-99)
[2017-07-09 17:23] LABS: Glucose,Whole Blood 140 mg/dL (75-99)
[2017-07-09] MEDS: ACETAMINOPHEN IV (For NPO) 1,000 MG in EMPTY BAG 1 BAG IVPB SCH ×2 (17:56→23:03)
[2017-07-09 18:00] LABS: Basophils # (A) 0.1 k/uL (0-0.2); Basophils % (A) 1 %; CH 29.1; CHCM 32.7; Eosinophils % (A) 0 %; HCT 30.3 % (34.0-46.0); HDW 2.61; HGB 9.7 gm/dL (11.4-16.0); Luc # (Auto) 0.08; Luc % (Auto) 1; Lymphocytes # (A) 0.9 k/uL (1.0-4.8); Lymphocytes % (A) 10 %; MCH 28.6 pg (25.0-35.0); MCV 89.5 fL (80.0-100.0); Mean Platelet Volume 10.6; Monocytes # (A) 0.5 k/uL (0-1.0); Monocytes % (A) 6 %; Neutrophils # (A) 7.3 k/uL (1.3-7.7); Neutrophils % (A) 83 %; RBC 3.39 m/uL (3.80-5.40); RDW 14.9 % (11.5-15.5); WBC 8.8 k/uL (3.8-10.6); WBC (Perox) 9.33
--- NOTE | 2017-07-09 18:15 | OP ---
OPERATIVE REPORT DATE OF SURGERY: 07/09/2017. PREOP DIAGNOSES: 1. Severe aortic valve stenosis. 2. Coronary artery disease. POSTOPERATIVE DIAGNOSES: 1. Severe aortic valve stenosis. 2. Coronary artery disease. PROCEDURE: 1. Aortic valve replacement using 21 mm Szymanski Magna ease bioprosthetic tissue valve. 2. Coronary bypass grafting x1 vessel (saphenous vein graft to obtuse marginal artery). 3. Epiaortic ultrasound. 4. Transesophageal echocardiogram. 5. Clipping of left atrial appendage using 35 mm atria clip. SURGEON: Nathaniel Odonnell MD. BRUISE TRIMMER: 1. MARCO Silveira. 2. MARCO Vera. ANESTHESIA: General. SPECIMENS: Aortic valve leaflets. COMPLICATIONS: None. INDICATIONS: The patient is a 72-year-old female, with past medical history of diabetes mellitus, hypertension, dyslipidemia, and current tobacco use who was found to have severe aortic valve stenosis. Cardiac catheterization revealed a lesion in the circumflex system. For this reason, aortic valve replacement and coronary bypass were recommended. The risks, benefits, alternatives of these procedures were discussed with the patient. All questions were answered. Consent was obtained. FINDINGS: The aortic valve was trileaflet and heavily calcified. The vein was an adequate conduit. The OM measured 1.2 mm. PROCEDURE IN DETAIL: The patient was taken to the operating room, placed supine on the operating table. After induction of general anesthesia, she was prepped and draped in the usual sterile fashion. Preoperative transesophageal echocardiogram confirmed severe aortic valve stenosis. Aortic valve appeared to be heavily calcified. The left ventricle had preserved ejection fraction. A median sternotomy was performed. Intravenous heparin was administered and pericardial cradle was created. Simultaneously greater saphenous vein was harvested from the right lower extremity using endoscopic technique. All branches were tied. The vein was adequate conduit. The ascending aorta was palpated. Due to the patient's body habitus. She had a relatively short aorta and a large fatty heart. Calcific plaque was noted at the takeoff of the innominate artery but the proximal aorta appeared to be soft. Epiaortic ultrasound was then performed. It confirmed calcific disease at the takeoff of the innominate artery with some atheromatous disease but no significant plaque in the proximal ascending aorta. An arterial cannula was placed in an area free of plaque in the distal ascending aorta near the underside of the arch. A venous cannula was placed in the right atrial appendage directed by the IVC. Both antegrade and retrograde catheters were placed as well. The patient was then placed on cardiopulmonary bypass with good decompression of the heart. The aortic cross-clamp was applied and the heart was arrested using cold blood potassium cardioplegia. Of note, cardioplegia was delivered every 15-20 minutes while the patient remained under crossclamp. We began by inspecting the left atrial appendage. It was measured and a 35 mm atria clip was chosen and applied across the base of the appendage. Next the lateral wall was inspected. The obtuse marginal artery was identified. A small arteriotomy was created. This also accepted a 1 mm probe. Using saphenous vein in a reverse fashion, an end-to-side anastomosis was created. The graft had good flow. It appeared to be hemostatic. Attention was then turned to the aortic valve. CO2 was administered over the operative field. An LV sump was placed through the right superior pulmonary vein to help in draining of the heart. An aortotomy was created in a hockey-stick fashion. The aortic leaflet was identified. It was trileaflet and heavily calcified. The leaflets were excised using sharp excision. Residual calcium was removed using a rongeur. The area was copiously irrigated with cold saline solution. Meticulous technique was used to ensure removal of all calcific debris. The aortic root was measured and a 21 mm Szymanski Magna bioprosthetic tissue valve was chosen. Pledgeted sutures were placed circumferentially around the anulus. The sutures were passed through the sewing ring. The valve was lowered into place. The sutures were tied. The valve appeared to seat nicely. The aortotomy was then closed in 2 layers using running 4-0 Prolene suture. The heart was de-aired in the standard fashion. Attention was then turned to the proximal anastomosis. This was performed in an end-to- side fashion using running 6-0 Prolene suture. 1 L of warm blood was delivered in a retrograde fashion. Lidocaine magnesium were administered as well. Again the heart was de-aired using multiple techniques. The aortic cross-clamp was removed. The retrograde catheter was removed. The LV sump was removed underwater. Temporary atrial ventricular pacing wires were placed and brought through the skin. Transesophageal echocardiogram revealed no significant intracardiac air. The patient was then weaned off cardiopulmonary bypass. She is without difficulty. Followup transesophageal echocardiogram again confirmed no significant intracardiac air. There was good function of the left ventricle and right ventricle. The bioprosthetic aortic valve appeared to be functioning well without evidence of perivalvular leak. Protamine was administered. There were no adverse reactions. The remaining cannulas were removed. Reinforcement sutures were placed as needed. The mediastinum was copiously irrigated with warm saline solution. Again all surgical sites were inspected and appeared to be hemostatic. Soft tissues were approximated over the ascending aorta. A straight 32-Filipino chest tube was placed directed in the right pleural space. A straight 36-Filipino chest tube was placed directed to the mediastinum. These were secured to the skin using sutures. The sternum was then reapproximated using stainless steel wires in a figure of eight fashion. The remainder of the wound was closed in layers. Sterile dressing was applied. The patient appeared to tolerate the procedure well. There were no immediate complications. She returned to the ICU in critical but stable condition. MMODL / IJN: [id number] /
[2017-07-09 18:25] LABS: Glucose,Whole Blood 184 mg/dL (75-99)
[2017-07-09] MEDS: INSULIN REGULAR 100 UNIT in SODIUM CHLORIDE 0.9% 100 ML IV SCH (18:31)
[2017-07-09 19:05] LABS: Glucose,Whole Blood 184 mg/dL (75-99)
[2017-07-09 20:03] LABS: Glucose,Whole Blood 172 mg/dL (75-99)
[2017-07-09 21:00] LABS: Glucose,Whole Blood 172 mg/dL (75-99)
[2017-07-09 21:07] LABS: Basophils % (A) 1 %; CH 28.2; CHCM 31.4; Eosinophils % (A) 0 %; HCT 29.3 % (34.0-46.0); HDW 2.62; HGB 9.4 gm/dL (11.4-16.0); Hypochromasia Slight; Luc # (Auto) 0.07; Luc % (Auto) 1; Lymphocytes # (A) 0.5 k/uL (1.0-4.8); Lymphocytes % (A) 7 %; MCHC 32.1 g/dL (31.0-37.0); MCV 90.2 fL (80.0-100.0); Mean Platelet Volume 9.1; Monocytes # (A) 0.4 k/uL (0-1.0); Monocytes % (A) 5 %; Neutrophils # (A) 6.5 k/uL (1.3-7.7); Neutrophils % (A) 87 %; RBC 3.25 m/uL (3.80-5.40); RDW 14.2 % (11.5-15.5); WBC 7.5 k/uL (3.8-10.6); WBC (Perox) 7.85
[2017-07-09 21:10] LABS: Anion Gap 9 mmol/L; Blood Urea Nitrogen 16 mg/dL (7-17); Calcium 7.6 mg/dL (8.4-10.2); Carbon Dioxide 23 mmol/L (22-30); Chloride 106 mmol/L (98-107); Glucose 168 mg/dL (74-99); Non-African American GFR(MDRD) >60 (>60 ml/min/1.73 sqM); Potassium 4.3 mmol/L (3.5-5.1); Sodium 138 mmol/L (137-145)
[2017-07-09] MEDS: MUPIROCIN 2% OINT 22 GM TUBE NASAL SCH (21:18)
[2017-07-09 21:59] LABS: Glucose,Whole Blood 152 mg/dL (75-99)
[2017-07-09] MEDS: MORPHINE SULFATE 2 MG/ML SYRINGE IVP PRN (22:04)
[2017-07-09 22:58] LABS: Glucose,Whole Blood 141 mg/dL (75-99)
[2017-07-09] MEDS: HEPARIN SODIUM,PORCINE 5,000 UNIT/ML 1 ML VIAL SQ SCH (23:02)
[2017-07-10 00:12] LABS: Glucose,Whole Blood 133 mg/dL (75-99)
[2017-07-10] MEDS: CLEVIDIPINE BUTYRATE 25 MG in EMPTY BAG 1 BAG IV SCH ×4 (00:12→06:57)
[2017-07-10 01:30] LABS: Glucose,Whole Blood 139 mg/dL (75-99)
[2017-07-10 01:57] LABS: ABG HCO3 24 mmol/L (21-25); ABG PCO2 39 mmHg (35-45); ABG PO2 71 mmHg (83-108); ABG TCO2 25 mmol/L (19-24)
[2017-07-10 01:58] LABS: ABG Base Excess -0.6 mmol/L
[2017-07-10 02:06] LABS: Glucose,Whole Blood 143 mg/dL (75-99)
[2017-07-10 03:06] LABS: Glucose,Whole Blood 129 mg/dL (75-99)
[2017-07-10 04:00] LABS: Glucose,Whole Blood 124 mg/dL (75-99)
[2017-07-10 04:54] LABS: Glucose,Whole Blood 117 mg/dL (75-99)
[2017-07-10] MEDS: ACETAMINOPHEN IV (For NPO) 1,000 MG in EMPTY BAG 1 BAG IVPB SCH ×3 (05:00→17:26)
[2017-07-10 05:14] LABS: Basophils % (A) 0 %; CH 29.1; Eosinophils % (A) 0 %; HCT 30.5 % (34.0-46.0); HDW 2.66; HGB 9.9 gm/dL (11.4-16.0); Luc # (Auto) 0.06; Luc % (Auto) 1; Lymphocytes # (A) 0.5 k/uL (1.0-4.8); Lymphocytes % (A) 6 %; MCH 28.7 pg (25.0-35.0); MCHC 32.3 g/dL (31.0-37.0); MCV 88.8 fL (80.0-100.0); Mean Platelet Volume 10.1; Monocytes # (A) 0.5 k/uL (0-1.0); Monocytes % (A) 5 %; Neutrophils # (A) 7.4 k/uL (1.3-7.7); Neutrophils % (A) 88 %; RBC 3.43 m/uL (3.80-5.40); RDW 14.9 % (11.5-15.5); WBC 8.5 k/uL (3.8-10.6); WBC (Perox) 8.49
[2017-07-10 05:35] LABS: INR 1.2 (<1.2); Prothrombin Time 11.9 sec (9.0-12.0)
[2017-07-10] MEDS: MORPHINE SULFATE 2 MG/ML SYRINGE IVP PRN (05:47)
[2017-07-10 05:52] LABS: Ionized Calcium 4.4 mg/dL (4.5-5.3)
[2017-07-10 06:46] LABS: ALT 72 U/L (9-52); AST 110 U/L (14-36); Alkaline Phosphatase 43 U/L (38-126); Anion Gap 9 mmol/L; Blood Urea Nitrogen 14 mg/dL (7-17); Calcium 7.5 mg/dL (8.4-10.2); Carbon Dioxide 24 mmol/L (22-30); Chloride 106 mmol/L (98-107); Glucose 106 mg/dL (74-99); Magnesium 1.9 mg/dL (1.6-2.3); Non-African American GFR(MDRD) >60 (>60 ml/min/1.73 sqM); Potassium 3.9 mmol/L (3.5-5.1); Sodium 139 mmol/L (137-145); Total Bilirubin 0.2 mg/dL (0.2-1.3); Total Protein 5.4 g/dL (6.3-8.2)
[2017-07-10 06:57] LABS: Glucose,Whole Blood 106 mg/dL (75-99)
[2017-07-10] MEDS ORDERED: Potassium Replacement Protocol 1 EACH MISC MISCELLANE PRN (07:00)
[2017-07-10] MEDS ORDERED: Magnesium Replacement Protocol 1 EACH MISC MISCELLANE PRN (07:01)
--- NOTE | 2017-07-10 07:04 | XR ---
EXAMINATION TYPE: XR chest 1V portable DATE OF EXAM: 07/10/2017 HISTORY: Post Operative Cardiac Surgery. REFERENCE: Previous study dated 07/09/2017. FINDINGS: There has been a midline sternotomy. A [place]Eriber[place] catheter remains in place. Its tip is in t he pulmonary outflow tract. The patient is ET tube and NG tube have been removed. The heart remains enlarged. Left basilar airspace disease. There is vascular congestion. There is imp roving interstitial change. IMPRESSION: 1. CONTINUING POSTOPERATIVE CHANGE. 2. IMPROVING CHANGES OF CONGESTIVE HEART FAILURE.
[2017-07-10 07:38] LABS: Glucose,Whole Blood 112 mg/dL (75-99)
--- NOTE | 2017-07-10 07:43 | CONS ---
CONSULTATION DATE OF CONSULTATION: 07/09/2017 REASON FOR CONSULTATION: Medical management requested by Dr. Odonnell. CONSULTATION: This 72-year-old patient of Dr. Glover. The patient has undergone aortic valve replacement with a bioprosthetic valve. Single-vessel CABG. Left atrial appendage clipping. The patient is currently intubated with ventilator with FiO2 40 and a PEEP of 5. The patient drips include insulin. The patient has received 500 mg of albumin for blood pressure being low. The patient's drips also include insulin and Cleviprex and lactated Ringers. The patient is currently sedated also on Diprivan. REVIEW OF SYSTEMS: Cannot be obtained because patient is intubated. PAST MEDICAL HISTORY: Diabetes, GERD, hypertension, hyperlipidemia, osteoarthritis, hypothyroid, coronary artery disease, aortic stenosis. Additional past medical history of right bundle branch block and basal cell carcinoma. PAST SURGICAL HISTORY: Cholecystectomy, cardiac catheterization, nasal surgery. PAST PSYCH HISTORY: Anxiety. SOCIAL HISTORY: The patient smoked a half a pack a day since 16 years of age. Quit for 10 years, down 2-3 cigarettes a day. This is a total about 56 years. Currently patient lives alone. FAMILY HISTORY: Myocardial infarction. HOME MEDICATIONS: 1. Januvia 100 mg p.o. daily. 2. Glucophage 1000 mg p.o. b.i.d. 3. Pravachol 40 mg q.h.s. 4. Omeprazole 20 mg daily. 5. Bactroban 2% nasal b.i.d. 6. Multivitamin 1 tab p.o. daily. 7. Toprol-XL 50 mg q.h.s. 8. Tapazole 10 mg p.o. daily. 9. Meloxicam 50 mg p.o. daily. 10.Amaryl 2 mg with breakfast. 11.Lasix 20 mg p.o. daily. 12.Vitamin D3 2000 units p.o. daily. 13.Symbicort 160/4.5 two puffs b.i.d. 14.Fosamax 70 mg on Fridays. 15.ProAir 1-2 puffs q.4h p.r.n. 16.Tylenol arthritis. ALLERGIES: ASPIRIN, PENICILLIN AND SULFUR. EXAMINATION: Afebrile, pulse 56, blood pressure 114/48, pulse ox 96% on ventilator. GENERAL APPEARANCE: Lying in bed, intubated. EYES: Pupils equal. Conjunctivae normal. HEENT: Endotracheal tube in place. External appearance of ears and nose normal. NECK: JVD unable to assess. Mass not palpable. RESPIRATORY: Effort normal. LUNGS: Diminished breath sounds. CARDIOVASCULAR: 1st and 2nd sounds normal. No edema. ABDOMEN: Soft, nontender. Liver and spleen not palpable. PSYCHIATRY: Unable to assess. NEUROLOGICAL: Pupils equal, reacting. Patient is sedated. DERMATOLOGIC: The patient has 2 chest tubes, one in the right pleural cavity and one in the mediastinum. INVESTIGATIONS: White count 8.8, hemoglobin 9.7. Accu-Cheks are noted. Platelets 77. Patient's preop hemoglobin was 13.7 and platelets 184. ASSESSMENT: 1. Status post surgery for single-vessel bypass and aortic valve replacement with bioprosthetic valve and left atrial appendage clipping. 2. Postoperative ventilator assistance as expected for support. 3. Diabetes mellitus type 2, on oral hypoglycemic. 4. Gastroesophageal reflux disease. 5. Essential hypertension. 6. Hyperlipidemia. 7. Primary osteoarthritis. 8. Hyperthyroidism. PLAN: The patient is currently on above medications including insulin drip, IV Cleviprex, Diprivan, ventilator assistance. Accu-Cheks to be closely followed. No family is present at the bedside. Care was discussed with nurse at the bedside. Thank you, Dr. Odonnell. DARLING / FILIPE: [id number] /
[2017-07-10] MEDS: POTASSIUM CHLORIDE 10 MEQ, LIDOCAINE 2% INJ 10 MG in SODIUM CHLORIDE 0.9% 100 ML IV SCH ×2 (08:01→09:29)
[2017-07-10] MEDS: HEPARIN SODIUM,PORCINE 5,000 UNIT/ML 1 ML VIAL SQ SCH ×3 (08:01→23:49)
[2017-07-10] MEDS: MAGNESIUM SULFATE-D5W PMX 1 GM in DEXTROSE/WATER 1 100ML.BAG IVPB SCH ×2 (08:01→09:28)
[2017-07-10] MEDS: CLOPIDOGREL 75 MG TAB PO SCH (08:02)
[2017-07-10] MEDS: METOPROLOL TARTRATE 12.5 MG TAB PO SCH ×2 (08:02→20:27)
[2017-07-10] MEDS: ATORVASTATIN 40 MG TAB PO SCH (08:02)
[2017-07-10] MEDS: ASPIRIN 325 MG TAB PO SCH (08:02)
[2017-07-10] MEDS: MUPIROCIN 2% OINT 22 GM TUBE NASAL SCH ×2 (08:03→20:27)
[2017-07-10] MEDS: ceFAZolin 2 GM in SODIUM CHLORIDE 0.9% 100 ML IVPB SCH (08:04)
--- NOTE | 2017-07-10 08:25 | P.PN ---
Subjective Progress Note Date: 07/10/17 Principal diagnosis: Severe aortic valve stenosis. Coronary artery disease. Type 2 diabetes mellitus with hemoglobin A1c 6.1%. Hyperlipidemia. Hypertension. Osteoarthritis. Hyperthyroidism. History of basal cell skin cancer. Obesity. Current tobacco dependence. Family history of heart disease. POD #1 elective aortic valve replacement using 21 mm Szymanski magna ease bioprosthetic tissue valve. Coronary artery bypass grafting 1 vessel, reverse saphenous vein graft to obtuse marginal artery. Endoscopic vein harvesting right greater saphenous vein. Epi-aortic ultrasound. Intraoperative transesophageal echocardiogram. Clipping of left atrial appendage using a 35 mm Atriclip. Patient is currently sitting up in a recliner in no acute distress. Was successfully extubated this morning. Complains of occasional sternal pain with coughing, denies shortness of breath. Objective - Vital Signs Vital signs: Vital Signs Temp 97.3 F L 07/09/17 05:55 Pulse 78 07/10/17 08:04 Resp 18 07/10/17 07:00 BP 131/57 07/10/17 06:45 Pulse Ox 97 07/10/17 07:00 Intake & Output 07/09/17 07/10/17 07/10/17 18:59 06:59 18:59 Intake Total 7848.256 9268.280 57.2 Output Total 3045 1600 255 Balance -1651.767 -507.720 -197.8 Weight 71.214 kg 79.3 kg Intake: IV 241 719 53 Cardiac Output 123 Lactated Ringers 1,000 ml 550 50 @ 50 mls/hr IV .Q20H DEISY Rx#:[id number] Pressure Bag 56 69 3 ceFAZolin 2 gm In Sodium 100 Chloride 0.9% 100 ml @ 100 mls/hr IVPB Q8HR DEISY Rx#:[id number] Intake, IV Titration 1152.233 373.280 4.2 Amount ACETAMINOPHEN IV (For NPO 100 ) 1,000 mg In Empty Bag 1 bag @ 400 mls/hr IVPB Q6HR DEISY Rx#:[id number] Albumin Human 5% 250 ml 500 As IVPB .STK-MED ONE Rx#: [id number] Clevidipine Butyrate 25 2.233 204.134 4.2 mg In Empty Bag 1 bag @ 1 MG/HR 2 mls/hr IV .Q24H DEISY Rx#:[id number] Insulin Regular 100 unit 37.674 In Sodium Chloride 0.9% 100 ml @ Per Protocol IV .Q0M DEISY Rx#:[id number] Lactated Ringers 1,000 ml 250 50 @ 50 mls/hr IV .Q20H DEISY Rx#:[id number] Potassium Chloride 10 meq 200 In Water For Injection 1 100ml.bag @ 100 mls/hr IVPB Q1H DEISY Rx#: [id number] Propofol 1,000 mg In 100 81.472 ml @ Titrate IV .Q0M DEISY Rx#:[id number] ceFAZolin 2 gm In Sodium 100 Chloride 0.9% 100 ml @ 100 mls/hr IVPB Q8HR DEISY Rx#:[id number] Output: Chest Tube Drainage 250 282 180 Right Pleural/Mediastinal 250 282 180 Drainage 50 30 Right Lower Calf 50 30 Urine 1545 1288 75 Estimated Blood Loss 1200 Other: Voiding Method Indwelling Catheter Indwelling Catheter ABP, PAP, CO, CI - Last Documented Arterial Blood Pressure 115/38 Pulmonary Artery Pressure 31/13 Cardiac Output 4.8 Cardiac Index 2.9 - Constitutional General appearance: Present: cooperative, no acute distress, obese - Respiratory Details: Lungs sounds diminished bilaterally, coarse in the bases. Respirations even, nonlabored. Currently on 6 L nasal cannula with oxygen saturation 97%. Only able to achieve 500 mL on her incentive spirometry. Effective cough. Right pleural/mediastinal chest tube to -20 cm wall suction, 380 mL serosanguineous drainage overnight, 500 mL since surgery. No air leak present. Chest x-ray reviewed, positive atelectasis, positive vascular congestion. - Cardiovascular Details: S1, S2 present. Regular rate and rhythm, normal sinus rhythm on telemetry. A/ V epicardial pacemaker wires present, connected to generator, VVI mode with backup rate 50 bpm. Right internal jugular Cordis/[place], right radial arterial line present. Palpable pulses bilaterally. Trace bilateral lower extremity edema present. Heart hugger in place with patient demonstrating appropriate use. Antiembolism stockings, SCDs present. - Gastrointestinal Gastrointestinal Comment(s): Abdomen soft, nontender, nondistended. Hypoactive bowel sounds present 4 quadrants. Tolerating sips of clear liquids. Negative flatus. - Genitourinary Genitourinary Comment(s): Amanda present draining clear, yellow urine. Output 60-125 mL/h overnight. - Integumentary Integumentary Comment(s): Anterior chest incision well approximated and covered with dry intact dressing. Right lower extremity EVH site well approximated, JANI drain present with minimal drainage. - Neurologic Neurologic: Present: CNII-XII intact - Musculoskeletal Musculoskeletal: Present: strength equal bilaterally - Psychiatric Psychiatric: Present: A&O x's 3, appropriate affect, intact judgment & insight - Allied health notes Allied health notes reviewed: nursing - Labs CBC & Chem 7: 07/10/17 04:50 07/10/17 04:50 Labs: Abnormal Lab Results - Last 24 Hours (Table) 07/01/17 07/09/17 07/09/17 Range/Units 13:45 08:48 09:46 RBC (3.80-5.40) m/uL Hgb (11.4-16.0) gm/dL Hct (34.0-46.0) % Plt Count (150-450) k/uL Lymphocytes # (1.0-4.8) k/uL PT (9.0-12.0) sec INR (<1.2) APTT (22.0-30.0) sec ABG pH (7.35-7.45) ABG pO2 (83-108) mmHg ABG Total CO2 (19-24) mmol/L ABG O2 Saturation (94-97) % BUN (7-17) mg/dL Creatinine (0.52-1.04) mg/dL Glucose (74-99) mg/dL POC Glucose (mg/dL) 133 H 134 H (75-99) mg/dL Calcium (8.4-10.2) mg/dL Ionized Calcium Kiarra (4.5-5.3) mg/dL AST (14-36) U/L ALT (9-52) U/L Alkaline Phosphatase (38-126) U/L Total Protein (6.3-8.2) g/dL Albumin (3.5-5.0) g/dL Crossmatch See Detail 07/09/17 07/09/17 07/09/17 Range/Units 10:37 10:58 11:39 RBC (3.80-5.40) m/uL Hgb (11.4-16.0) gm/dL Hct (34.0-46.0) % Plt Count (150-450) k/uL Lymphocytes # (1.0-4.8) k/uL PT (9.0-12.0) sec INR (<1.2) APTT (22.0-30.0) sec ABG pH (7.35-7.45) ABG pO2 (83-108) mmHg ABG Total CO2 (19-24) mmol/L ABG O2 Saturation (94-97) % BUN (7-17) mg/dL Creatinine (0.52-1.04) mg/dL Glucose (74-99) mg/dL POC Glucose (mg/dL) 301 H 275 H 278 H (75-99) mg/dL Calcium (8.4-10.2) mg/dL Ionized Calcium Kiarra (4.5-5.3) mg/dL AST (14-36) U/L ALT (9-52) U/L Alkaline Phosphatase (38-126) U/L Total Protein (6.3-8.2) g/dL Albumin (3.5-5.0) g/dL Crossmatch 07/09/17 07/09/17 07/09/17 Range/Units 12:00 12:28 13:22 RBC (3.80-5.40) m/uL Hgb (11.4-16.0) gm/dL Hct (34.0-46.0) % Plt Count (150-450) k/uL Lymphocytes # (1.0-4.8) k/uL PT (9.0-12.0) sec INR (<1.2) APTT (22.0-30.0) sec ABG pH (7.35-7.45) ABG pO2 (83-108) mmHg ABG Total CO2 (19-24) mmol/L ABG O2 Saturation (94-97) % BUN (7-17) mg/dL Creatinine (0.52-1.04) mg/dL Glucose (74-99) mg/dL POC Glucose (mg/dL) 261 H 272 H 171 H (75-99) mg/dL Calcium (8.4-10.2) mg/dL Ionized Calcium Kiarra (4.5-5.3) mg/dL AST (14-36) U/L ALT (9-52) U/L Alkaline Phosphatase (38-126) U/L Total Protein (6.3-8.2) g/dL Albumin (3.5-5.0) g/dL Crossmatch 07/09/17 07/09/17 07/09/17 Range/Units 14:30 14:30 14:30 RBC 3.07 L (3.80-5.40) m/uL Hgb 9.1 L D (11.4-16.0) gm/dL Hct 27.1 L (34.0-46.0) % Plt Count 66 L D (150-450) k/uL Lymphocytes # 0.7 L (1.0-4.8) k/uL PT 13.6 H (9.0-12.0) sec INR 1.4 H (<1.2) APTT 33.7 H (22.0-30.0) sec ABG pH (7.35-7.45) ABG pO2 (83-108) mmHg ABG Total CO2 (19-24) mmol/L ABG O2 Saturation (94-97) % BUN 19 H (7-17) mg/dL Creatinine (0.52-1.04) mg/dL Glucose (74-99) mg/dL POC Glucose (mg/dL) (75-99) mg/dL Calcium 7.6 L (8.4-10.2) mg/dL Ionized Calcium Kiarra 4.4 L (4.5-5.3) mg/dL AST 53 H (14-36) U/L ALT (9-52) U/L Alkaline Phosphatase 29 L (38-126) U/L Total Protein 4.5 L (6.3-8.2) g/dL Albumin 2.8 L (3.5-5.0) g/dL Crossmatch 07/09/17 07/09/17 07/09/17 Range/Units 15:06 15:22 15:40 RBC (3.80-5.40) m/uL Hgb (11.4-16.0) gm/dL Hct (34.0-46.0) % Plt Count (150-450) k/uL Lymphocytes # (1.0-4.8) k/uL PT (9.0-12.0) sec INR (<1.2) APTT (22.0-30.0) sec ABG pH 7.34 L (7.35-7.45) ABG pO2 >420 H (83-108) mmHg ABG Total CO2 25 H (19-24) mmol/L ABG O2 Saturation 100.0 H (94-97) % BUN (7-17) mg/dL Creatinine (0.52-1.04) mg/dL Glucose (74-99) mg/dL POC Glucose (mg/dL) 71 L 62 L (75-99) mg/dL Calcium (8.4-10.2) mg/dL Ionized Calcium Kiarra (4.5-5.3) mg/dL AST (14-36) U/L ALT (9-52) U/L Alkaline Phosphatase (38-126) U/L Total Protein (6.3-8.2) g/dL Albumin (3.5-5.0) g/dL Crossmatch 07/09/17 07/09/17 07/09/17 Range/Units 15:41 16:02 17:02 RBC (3.80-5.40) m/uL Hgb (11.4-16.0) gm/dL Hct (34.0-46.0) % Plt Count (150-450) k/uL Lymphocytes # (1.0-4.8) k/uL PT (9.0-12.0) sec INR (<1.2) APTT (22.0-30.0) sec ABG pH (7.35-7.45) ABG pO2 (83-108) mmHg ABG Total CO2 (19-24) mmol/L ABG O2 Saturation (94-97) % BUN (7-17) mg/dL Creatinine (0.52-1.04) mg/dL Glucose (74-99) mg/dL POC Glucose (mg/dL) 208 H 158 H 140 H (75-99) mg/dL Calcium (8.4-10.2) mg/dL Ionized Calcium Kiarra (4.5-5.3) mg/dL AST (14-36) U/L ALT (9-52) U/L Alkaline Phosphatase (38-126) U/L Total Protein (6.3-8.2) g/dL Albumin (3.5-5.0) g/dL Crossmatch 07/09/17 07/09/17 07/09/17 Range/Units 17:50 17:53 19:03 RBC 3.39 L (3.80-5.40) m/uL Hgb 9.7 L (11.4-16.0) gm/dL Hct 30.3 L (34.0-46.0) % Plt Count 77 L (150-450) k/uL Lymphocytes # 0.9 L (1.0-4.8) k/uL PT (9.0-12.0) sec INR (<1.2) APTT (22.0-30.0) sec ABG pH (7.35-7.45) ABG pO2 (83-108) mmHg ABG Total CO2 (19-24) mmol/L ABG O2 Saturation (94-97) % BUN (7-17) mg/dL Creatinine (0.52-1.04) mg/dL Glucose (74-99) mg/dL POC Glucose (mg/dL) 184 H 184 H (75-99) mg/dL Calcium (8.4-10.2) mg/dL Ionized Calcium Kiarra (4.5-5.3) mg/dL AST (14-36) U/L ALT (9-52) U/L Alkaline Phosphatase (38-126) U/L Total Protein (6.3-8.2) g/dL Albumin (3.5-5.0) g/dL Crossmatch 07/09/17 07/09/17 07/09/17 Range/Units 20:00 20:20 20:50 RBC 3.25 L (3.80-5.40) m/uL Hgb 9.4 L (11.4-16.0) gm/dL Hct 29.3 L (34.0-46.0) % Plt Count 74 L (150-450) k/uL Lymphocytes # 0.5 L (1.0-4.8) k/uL PT (9.0-12.0) sec INR (<1.2) APTT (22.0-30.0) sec ABG pH (7.35-7.45) ABG pO2 (83-108) mmHg ABG Total CO2 (19-24) mmol/L ABG O2 Saturation (94-97) % BUN (7-17) mg/dL Creatinine 0.50 L (0.52-1.04) mg/dL Glucose 168 H (74-99) mg/dL POC Glucose (mg/dL) 172 H (75-99) mg/dL Calcium 7.6 L (8.4-10.2) mg/dL Ionized Calcium Kiarra (4.5-5.3) mg/dL AST (14-36) U/L ALT (9-52) U/L Alkaline Phosphatase (38-126) U/L Total Protein (6.3-8.2) g/dL Albumin (3.5-5.0) g/dL Crossmatch 07/09/17 07/09/17 07/09/17 Range/Units 20:58 21:57 22:56 RBC (3.80-5.40) m/uL Hgb (11.4-16.0) gm/dL Hct (34.0-46.0) % Plt Count (150-450) k/uL Lymphocytes # (1.0-4.8) k/uL PT (9.0-12.0) sec INR (<1.2) APTT (22.0-30.0) sec ABG pH (7.35-7.45) ABG pO2 (83-108) mmHg ABG Total CO2 (19-24) mmol/L ABG O2 Saturation (94-97) % BUN (7-17) mg/dL Creatinine (0.52-1.04) mg/dL Glucose (74-99) mg/dL POC Glucose (mg/dL) 172 H 152 H 141 H (75-99) mg/dL Calcium (8.4-10.2) mg/dL Ionized Calcium Kiarra (4.5-5.3) mg/dL AST (14-36) U/L ALT (9-52) U/L Alkaline Phosphatase (38-126) U/L Total Protein (6.3-8.2) g/dL Albumin (3.5-5.0) g/dL Crossmatch 07/10/17 07/10/17 07/10/17 Range/Units 00:07 01:28 01:44 RBC (3.80-5.40) m/uL Hgb (11.4-16.0) gm/dL Hct (34.0-46.0) % Plt Count (150-450) k/uL Lymphocytes # (1.0-4.8) k/uL PT (9.0-12.0) sec INR (<1.2) APTT (22.0-30.0) sec ABG pH (7.35-7.45) ABG pO2 71 L (83-108) mmHg ABG Total CO2 25 H (19-24) mmol/L ABG O2 Saturation (94-97) % BUN (7-17) mg/dL Creatinine (0.52-1.04) mg/dL Glucose (74-99) mg/dL POC Glucose (mg/dL) 133 H 139 H (75-99) mg/dL Calcium (8.4-10.2) mg/dL Ionized Calcium Kiarra (4.5-5.3) mg/dL AST (14-36) U/L ALT (9-52) U/L Alkaline Phosphatase (38-126) U/L Total Protein (6.3-8.2) g/dL Albumin (3.5-5.0) g/dL Crossmatch 07/10/17 07/10/17 07/10/17 Range/Units 02:04 03:03 03:59 RBC (3.80-5.40) m/uL Hgb (11.4-16.0) gm/dL Hct (34.0-46.0) % Plt Count (150-450) k/uL Lymphocytes # (1.0-4.8) k/uL PT (9.0-12.0) sec INR (<1.2) APTT (22.0-30.0) sec ABG pH (7.35-7.45) ABG pO2 (83-108) mmHg ABG Total CO2 (19-24) mmol/L ABG O2 Saturation (94-97) % BUN (7-17) mg/dL Creatinine (0.52-1.04) mg/dL Glucose (74-99) mg/dL POC Glucose (mg/dL) 143 H 129 H 124 H (75-99) mg/dL Calcium (8.4-10.2) mg/dL Ionized Calcium Kiarra (4.5-5.3) mg/dL AST (14-36) U/L ALT (9-52) U/L Alkaline Phosphatase (38-126) U/L Total Protein (6.3-8.2) g/dL Albumin (3.5-5.0) g/dL Crossmatch 07/10/17 07/10/17 07/10/17 Range/Units 04:50 04:50 04:50 RBC 3.43 L (3.80-5.40) m/uL Hgb 9.9 L (11.4-16.0) gm/dL Hct 30.5 L (34.0-46.0) % Plt Count 81 L (150-450) k/uL Lymphocytes # 0.5 L (1.0-4.8) k/uL PT (9.0-12.0) sec INR 1.2 H (<1.2) APTT (22.0-30.0) sec ABG pH (7.35-7.45) ABG pO2 (83-108) mmHg ABG Total CO2 (19-24) mmol/L ABG O2 Saturation (94-97) % BUN (7-17) mg/dL Creatinine 0.51 L (0.52-1.04) mg/dL Glucose 106 H (74-99) mg/dL POC Glucose (mg/dL) (75-99) mg/dL Calcium 7.5 L (8.4-10.2) mg/dL Ionized Calcium Kiarra 4.4 L (4.5-5.3) mg/dL AST 110 H (14-36) U/L ALT 72 H (9-52) U/L Alkaline Phosphatase (38-126) U/L Total Protein 5.4 L (6.3-8.2) g/dL Albumin 3.3 L (3.5-5.0) g/dL Crossmatch 07/10/17 07/10/17 07/10/17 Range/Units 04:51 06:56 07:37 RBC (3.80-5.40) m/uL Hgb (11.4-16.0) gm/dL Hct (34.0-46.0) % Plt Count (150-450) k/uL Lymphocytes # (1.0-4.8) k/uL PT (9.0-12.0) sec INR (<1.2) APTT (22.0-30.0) sec ABG pH (7.35-7.45) ABG pO2 (83-108) mmHg ABG Total CO2 (19-24) mmol/L ABG O2 Saturation (94-97) % BUN (7-17) mg/dL Creatinine (0.52-1.04) mg/dL Glucose (74-99) mg/dL POC Glucose (mg/dL) 117 H 106 H 112 H (75-99) mg/dL Calcium (8.4-10.2) mg/dL Ionized Calcium Kiarra (4.5-5.3) mg/dL AST (14-36) U/L ALT (9-52) U/L Alkaline Phosphatase (38-126) U/L Total Protein (6.3-8.2) g/dL Albumin (3.5-5.0) g/dL Crossmatch - Imaging and Cardiology Chest x-ray: report reviewed, image reviewed Assessment and Plan (1) Severe aortic stenosis Status: Acute (2) Osteoarthritis Status: Acute (3) Family history of coronary artery disease Status: Acute (4) History of basal cell carcinoma Status: Acute (5) Hyperthyroidism Status: Acute (6) Coronary artery disease Status: Acute (7) Diabetes mellitus, type II Status: Acute (8) Hyperlipidemia Status: Acute (9) Hypertension Status: Acute (10) Obesity (BMI 30.0-34.9) Status: Acute (11) Tobacco dependence Status: Acute Plan: 1. Continue aspirin, statin, Plavix, heparin subcu, beta berta. Will maximize beta berta therapy as tolerated. 2. Wean Cleviprex as tolerated. 3. Wean O2 as tolerated. Encourage incentive spirometer use. 4. Will discontinue [place]-Eriberto catheter. Connected Cordis to continue CVP monitoring. 5. Increase activity, ambulate in room. Physical therapy to follow. 6. GI for/DVT prophylaxis. 7. Will monitor daily labs, x-rays. 8. Insulin management per primary care service. 9. More recommendations as patient progresses. Time with Patient: Greater than 30
[2017-07-10] MEDS ORDERED: PANTOPRAZOLE 40 MG/10 ML VIAL IVP SCH (09:00)
[2017-07-10] MEDS ORDERED: FUROSEMIDE 10 MG/ML 2 ML VIAL IV ONE (09:15)
[2017-07-10] MEDS: MULTIVITAMINS, THERA 1 EACH TAB PO SCH (09:29)
[2017-07-10] MEDS: METHIMAZOLE 5 MG TAB PO SCH (09:29)
[2017-07-10 09:30] LABS: Glucose,Whole Blood 142 mg/dL (75-99)
[2017-07-10 11:01] LABS: Glucose,Whole Blood 133 mg/dL (75-99)
[2017-07-10] MEDS: CHOLECALCIFEROL 1,000 UNIT TAB PO SCH (11:05)
--- NOTE | 2017-07-10 11:34 | CONS ---
CONSULTATION Mrs. Justin is a 72-year-old female who underwent aortic valve replacement and coronary bypass grafting. She has been followed by Dr. Addison on a regular basis and has underwent cardiac catheterization by Dr. Addison in April of this year and at that time was found to have his significant disease in the left circumflex with a mild disease in the LAD and the right coronary artery and severe aortic stenosis. She has been complaining of progressive fatigue. No significant chest pain. She feels she has some peripheral edema. She has no PND nor orthopnea. She has underwent a single saphenous vein graft to the left circumflex yesterday and aortic valve replacement using a bioprosthetic valve size 21 with clipping of the left atrial appendage. She is sitting up in the chair. Chest wall with tenderness. She is in sinus mechanism. Hemodynamically, she is stable. Her blood pressure was high. She has no dizziness or palpitation. Her coronary risk factors are remarkable for history of hypertension, diabetes, and hyperlipidemia. MEDICATIONS: Include: 1. Januvia. 2. Glucophage. 3. Pravastatin 40 mg daily. 4. Metoprolol succinate 50 mg daily. 5. Glimepiride 2 mg. 6. Lasix 20 mg daily. 7. Fosamax. 8. Albuterol. 9. Tylenol. REVIEW OF SYSTEMS: RESPIRATORY system: She has the mild dyspnea on exertion. No recent wheezing at home. No cough. No history of obstructive lung disease. GI system: No recent GI bleed. No peptic ulcer disease. system: No dysuria or hematuria. Nervous system: No history of stroke or seizure. PHYSICAL EXAMINATION: She is a 72-year-old female, alert, oriented, in no apparent distress. Blood pressure 128/50 with a heart in the 60s. HEAD: Normocephalic. Eyes sclerae anicteric. Neck good upstroke. [place]-Eriberto in place. Lungs no wheezes with mild decreased breath sounds at the bases. HEART: Regular rate and rhythm, S1, S2 with soft systolic murmur. No diastolic murmur. No rub. ABDOMEN: Soft, nontender. Positive bowel sounds. Extremities: Pk wrapping in place. LAB DATA: BUN creatinine 14 and 0.5, potassium 3.9, hemoglobin of 9.9. Her chest x-ray today revealed no infiltrate with some congestion. IMPRESSION: 1. Status post coronary artery bypass grafting with aortic valve replacement, stable. 2. Hypertension. 3. Hyperlipidemia. 4. Diabetes mellitus. RECOMMENDATION: From the cardiac standpoint, she is stable. We will continue present therapy. Increase her level activity. Continue incentive spirometry. We will continue to follow her blood pressure and heart rate and depending on her progress, further recommendations will be made. Thank you for this consult. We will follow with you. MMODL / IJN: [id number] /
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
[2017-07-10 13:26] LABS: Glucose,Whole Blood 93 mg/dL (75-99)
[2017-07-10] MEDS ORDERED: IPRATROPIUM-ALBUTEROL 3 ML NEB INHALATION PRN (13:48)
[2017-07-10] MEDS ORDERED: BISACODYL 10 MG SUPP RECTAL PRN (13:48)
[2017-07-10] MEDS ORDERED: MAGNESIUM HYDROXIDE 2,400 MG/10 ML CUP PO PRN (13:48)
[2017-07-10 14:15] LABS: Glucose,Whole Blood 157 mg/dL (75-99)
--- NOTE | 2017-07-10 14:51 | P.PN ---
Progress Note - Text Progress Note Date: 07/10/17 DATE OF SERVICE: 07/10/2017 PRESENTING COMPLAINT: scheduled surgery for aortic valve replacement HISTORY OF PRESENT ILLNESS: 72-year-old female status post aortic valve replacement with biprosthetic valve single vessel CABG.postoperatively patient was intubated and sedated and oncritical care drips. This morning, patient successfully extubated, continues on Cleviprex, insulin drip. INTERVAL HISTORY: 07/10/2017: patient sitting up in chair,tired appearing successfully extubated. Heart Hugger in place, drips include insulin and Cleviprex.right pleural/mediastinal chest tube to suction,appetite is low, barely ate 10% of her breakfast. REVIEW OF SYSTEMS: Done for constitutional ,cardiovascular, GI, pulmonary , chest wall,with relevant findings as above. CURRENT MEDICATIONS Cleviprex drip, insulin drip, Lipitor 40 mg by mouth daily,Plavix 75 mg by mouth daily, Tapazole 10 mg by mouth daily, Lopressor 12.5 mg by mouth twice a day,oxycodone 10 mg by mouth every 4 hours, Protonix 40 mg by mouth before meals. PHYSICAL EXAM VITAL SIGNS: temperature 99.7 pulse 69, respiratory rate 17, blood pressure 140/47, oxygen saturation 90% on 6 L. GENERAL APPEARANCE: sitting up in a chair tired appearing. EYES: Pupils equal. Conjunctiva normal. NECK: JVD not raised. Mass not palpable. right [place]-Eriberto catheter in place RESPIRATORY: Respiratory effort normal. Lungs diminished to auscultation. CARDIOVASCULAR: First and second sounds normal. No edema. CHEST:a pleural mediastinal chest tube to suction with serosanguineous drainage, no air leak present, Heart Hugger in place ABDOMEN: Soft. Liver and spleen not palpable. No tenderness. No mass palpable. PSYCHIATRY: Alert and oriented x3. Mood and affect normal. INVESTIGATIONS: hemoglobin 9.9, INR 1.2,calcium 7.5, AST 110, ALTs 72,albumin 3.3. Accu-Cheks noted. x-ray:postoperative change, improving changes of congestive heart failure ASSESSMENT: -status post surgery for single-vessel bypass and aortic valve replacement with bioprosthetic valve and left atrial appendage clipping. -Postoperative ventilator assistance as expected for respiratory support, extubated this morning -Diabetes mellitus type 2 currently on insulin drip -Gastroesophageal reflux disease. -Essential hypertension. -Hyperlipidemia. -Primary osteoarthritis. -Hypothyroidism PLAN: plans to wean Cleviprex and insulin drip as patient can tolerate, increase activity, physical therapy to follow. Will resume insulin sliding scale coverage once insulin drip has been discontinued.plan of care discussed with the patient at the bedside, we will continue to follow along with you closely. STORE OPERATIONS SPECIALIST statement: Patient was seen and examined by nurse practitioner Delaney Del Toro and all elements of the case discussed with attending Dr. Church
[2017-07-10 15:09] LABS: Glucose,Whole Blood 197 mg/dL (75-99)
[2017-07-10 15:32] LABS: ABG Base Excess 0.2 mmol/L; ABG HCO3 25 mmol/L (21-25); ABG Hematocrit 42 % (34.0-46.0); ABG PCO2 42 mmHg (35-45); ABG PH 7.39 (7.35-7.45); ABG PO2 379 mmHg (83-108); ABG TCO2 26 mmol/L (19-24)
[2017-07-10 15:33] LABS: ABG Base Excess -1.1 mmol/L; ABG HCO3 23 mmol/L (21-25); ABG Hematocrit 38 % (34.0-46.0); ABG Oxygen Saturation 99.8 % (94-97); ABG PCO2 40 mmHg (35-45); ABG PH 7.39 (7.35-7.45); ABG PO2 215 mmHg (83-108); ABG TCO2 24 mmol/L (19-24)
[2017-07-10 15:34] LABS: ABG Base Excess -1.6 mmol/L; ABG HCO3 22 mmol/L (21-25); ABG Hematocrit 32 % (34.0-46.0); ABG Oxygen Saturation 99.9 % (94-97); ABG PCO2 36 mmHg (35-45); ABG PH 7.41 (7.35-7.45); ABG PO2 343 mmHg (83-108); ABG TCO2 23 mmol/L (19-24)
[2017-07-10 15:35] LABS: ABG Base Excess -1.7 mmol/L; ABG HCO3 23 mmol/L (21-25); ABG Hematocrit 31 % (34.0-46.0); ABG Oxygen Saturation 99.9 % (94-97); ABG PCO2 39 mmHg (35-45); ABG PH 7.38 (7.35-7.45); ABG PO2 314 mmHg (83-108); ABG TCO2 24 mmol/L (19-24)
[2017-07-10 15:37] LABS: ABG HCO3 24 mmol/L (21-25); ABG PCO2 51 mmHg (35-45); ABG PO2 312 mmHg (83-108)
[2017-07-10 15:38] LABS: ABG Hematocrit 32 % (34.0-46.0); ABG Oxygen Saturation 99.9 % (94-97); ABG TCO2 26 mmol/L (19-24)
[2017-07-10 15:38] LABS: ABG PCO2 50 mmHg (35-45)
[2017-07-10 15:39] LABS: ABG Base Excess -2.4 mmol/L; ABG HCO3 24 mmol/L (21-25); ABG Hematocrit 32 % (34.0-46.0); ABG Oxygen Saturation 99.9 % (94-97); ABG PO2 283 mmHg (83-108); ABG TCO2 25 mmol/L (19-24)
[2017-07-10 15:40] LABS: ABG Base Excess -2.8 mmol/L; ABG HCO3 22 mmol/L (21-25); ABG Hematocrit 29 % (34.0-46.0); ABG Oxygen Saturation 99.9 % (94-97); ABG PCO2 42 mmHg (35-45); ABG PH 7.34 (7.35-7.45); ABG PO2 370 mmHg (83-108); ABG TCO2 24 mmol/L (19-24)
[2017-07-10 15:41] LABS: ABG Base Excess -1.2 mmol/L; ABG HCO3 23 mmol/L (21-25); ABG Hematocrit 31 % (34.0-46.0); ABG PCO2 38 mmHg (35-45); ABG PO2 411 mmHg (83-108); ABG TCO2 24 mmol/L (19-24)
[2017-07-10 16:26] LABS: Glucose,Whole Blood 162 mg/dL (75-99)
[2017-07-10] MEDS: LACTATED RINGERS 1,000 ML IV SCH (16:29)
[2017-07-10 16:49] LABS: Glucose,Whole Blood 148 mg/dL (75-99)
[2017-07-10 18:07] LABS: Glucose,Whole Blood 167 mg/dL (75-99)
[2017-07-10 19:13] LABS: Glucose,Whole Blood 161 mg/dL (75-99)
[2017-07-10] MEDS: SENNOSIDES-DOCUSATE SODIUM 1 EACH TAB PO SCH (20:27)
[2017-07-10 20:28] LABS: Glucose,Whole Blood 167 mg/dL (75-99)
--- NOTE | 2017-07-10 21:43 | PN ---
PROGRESS NOTE DATE OF SERVICE: 07/10/17. ATTENDING NOTE: This patient seen and examined by me. I discussed with my nurse practitioner. The patient is status post single-vessel CABG and aortic valve replacement. Sitting up in a chair. Extubated. The patient is on drip and insulin drip. Awake. EXAM: Lungs decreased breath sounds. Cardiovascular first and second sounds normal. Accu-Cheks are noted. Hemoglobin 9.9, potassium 3.9. ASSESSMENT: Status post single vessel bypass and aortic valve replacement of bioprosthetic valve. Continue current medication and treatment plan. Follow. MMODL / IJN: [id number] /
[2017-07-10 21:59] LABS: Glucose,Whole Blood 140 mg/dL (75-99)
[2017-07-10 23:02] LABS: Glucose,Whole Blood 117 mg/dL (75-99)
[2017-07-10 23:54] LABS: Glucose,Whole Blood 117 mg/dL (75-99)
[2017-07-11 01:06] LABS: Glucose,Whole Blood 121 mg/dL (75-99)
[2017-07-11] MEDS: HYDROcodone/APAP 5-325MG 1 EACH TAB PO PRN (02:43)
[2017-07-11 03:14] LABS: Glucose,Whole Blood 130 mg/dL (75-99)
[2017-07-11 04:40] LABS: Basophils # (A) 0.1 k/uL (0-0.2); Basophils % (A) 1 %; CH 28.2; CHCM 31.3; Eosinophils # (A) 0.1 k/uL (0-0.7); Eosinophils % (A) 1 %; HCT 28.2 % (34.0-46.0); HDW 2.56; Hypochromasia Slight; Luc % (Auto) 1; Lymphocytes # (A) 1.2 k/uL (1.0-4.8); Lymphocytes % (A) 12 %; MCH 28.7 pg (25.0-35.0); MCHC 31.8 g/dL (31.0-37.0); MCV 90.4 fL (80.0-100.0); Mean Platelet Volume 9.8; Monocytes # (A) 0.5 k/uL (0-1.0); Monocytes % (A) 5 %; Neutrophils # (A) 8.1 k/uL (1.3-7.7); Neutrophils % (A) 81 %; RBC 3.12 m/uL (3.80-5.40); RDW 14.4 % (11.5-15.5); WBC 10.1 k/uL (3.8-10.6); WBC (Perox) 10.26
[2017-07-11 05:02] LABS: Ionized Calcium 4.4 mg/dL (4.5-5.3)
[2017-07-11 05:11] LABS: ALT 43 U/L (9-52); AST 56 U/L (14-36); Alkaline Phosphatase 49 U/L (38-126); Anion Gap 5 mmol/L; Blood Urea Nitrogen 13 mg/dL (7-17); Calcium 7.4 mg/dL (8.4-10.2); Carbon Dioxide 26 mmol/L (22-30); Chloride 106 mmol/L (98-107); Glucose 111 mg/dL (74-99); Magnesium 2.1 mg/dL (1.6-2.3); Non-African American GFR(MDRD) >60 (>60 ml/min/1.73 sqM); Potassium 4.1 mmol/L (3.5-5.1); Sodium 137 mmol/L (137-145); Total Bilirubin 0.3 mg/dL (0.2-1.3)
[2017-07-11 05:20] LABS: Glucose,Whole Blood 114 mg/dL (75-99)
[2017-07-11 06:02] LABS: Glucose,Whole Blood 119 mg/dL (75-99)
[2017-07-11] MEDS: INSULIN REGULAR 100 UNIT in SODIUM CHLORIDE 0.9% 100 ML IV SCH (06:08)
[2017-07-11 07:12] LABS: Glucose,Whole Blood 147 mg/dL (75-99)
--- NOTE | 2017-07-11 07:21 | XR ---
EXAMINATION TYPE: XR chest 1V portable DATE OF EXAM: 07/11/2017 HISTORY: shortness of breath. REFERENCE: Previous study dated 07/10/2017. FINDINGS: The patient's right internal jugular catheter has been removed. There has been a midline st ernotomy. The heart is enlarged. There is worsening left basilar airspace disease. There is a left-si ded effusion which has worsened. There is mild vascular congestion without mak edema. IMPRESSION: 1. CARDIOMEGALY. 2. LEFT BASILAR AIRSPACE DISEASE. 3. FLUID LEFT-SIDED EFFUSION. 4. IMPROVEMENT IN THE PATIENT'S VOLUME STATUS.
--- NOTE | 2017-07-11 07:28 | P.PN ---
Subjective Progress Note Date: 07/11/17 Principal diagnosis: Severe aortic valve stenosis. Coronary artery disease. Type 2 diabetes mellitus with hemoglobin A1c 6.1%. Hyperlipidemia. Hypertension. Osteoarthritis. Hyperthyroidism. History of basal cell skin cancer. Obesity. Current tobacco dependence. Family history of heart disease. POD #2 elective aortic valve replacement using 21 mm Szymanski magna ease bioprosthetic tissue valve. Coronary artery bypass grafting 1 vessel, reverse saphenous vein graft to obtuse marginal artery. Endoscopic vein harvesting right greater saphenous vein. Epi-aortic ultrasound. Intraoperative transesophageal echocardiogram. Clipping of left atrial appendage using a 35 mm Atriclip. Patient is currently sitting up in a recliner in no acute distress. Complains of occasional sternal pain with coughing, denies shortness of breath. Objective - Vital Signs Vital signs: Vital Signs Temp 99 F 07/11/17 04:00 Pulse 85 07/11/17 07:00 Resp 20 07/11/17 07:00 BP 132/63 07/11/17 07:00 Pulse Ox 95 07/11/17 07:00 Intake & Output 07/10/17 07/11/17 07/11/17 18:59 06:59 18:59 Intake Total 747.933 746.594 57.061 Output Total 1865 800 95 Balance -1117.067 -53.406 -37.939 Weight 79.7 kg Intake: IV 675 672 56 Lactated Ringers 1,000 ml 600 600 50 @ 20 mls/hr IV .Q24H DEISY Rx#:[id number] Pressure Bag 75 72 6 Intake, IV Titration 72.933 24.594 1.061 Amount Clevidipine Butyrate 25 50.0 mg In Empty Bag 1 bag @ 1 MG/HR 2 mls/hr IV .Q24H DEISY Rx#:[id number] Insulin Regular 100 unit 22.933 24.594 1.061 In Sodium Chloride 0.9% 100 ml @ Per Protocol IV .Q0M DEISY Rx#:[id number] Oral 50 Output: Chest Tube Drainage 460 80 30 Right Pleural/Mediastinal 460 80 30 Drainage 0 15 Right Lower Calf 0 15 Urine 1405 720 50 Other: Voiding Method Indwelling Catheter Indwelling Catheter ABP, PAP, CO, CI - Last Documented Arterial Blood Pressure 141/38 Pulmonary Artery Pressure 32/14 Cardiac Output 5 Cardiac Index 3.0 - Constitutional General appearance: Present: cooperative, no acute distress, obese - Respiratory Details: Lungs sounds diminished bilaterally. Respirations even, nonlabored. Currently on room air with oxygen saturation 97%. Only able to achieve 500 mL on incentive spirometer. Effective cough. Right/mediastinal chest tube to -20 cm wall suction, 90 mL serosanguineous drainage overnight, 380 mL last 24 hours. No air leak present. Chest x-ray reviewed, mild vascular congestion with left pleural effusion. - Cardiovascular Details: S1, S2 present. Regular rate and rhythm, normal sinus rhythm on telemetry. A/ V epicardial pacemaker wires present, grounded. Sternum stable. Right internal jugular Cordis, right radial arterial line present. Palpable pulses bilaterally. Trace bilateral lower extremity edema, left upper extremity edema. Heart hugger in place with patient demonstrating appropriate use. Antiembolism stockings, SCDs present. - Gastrointestinal Gastrointestinal Comment(s): Abdomen soft, nontender, nondistended. Hypoactive bowel sounds present 4 quadrants. Denies flatus. No bowel movement since surgery. Tolerating diet. - Genitourinary Genitourinary Comment(s): Amanda present draining clear, yellow urine. Output 40-65 mL/h overnight. - Integumentary Integumentary Comment(s): Anterior chest incision well approximated and covered try intact dressing. Right lower extremity EVH site well approximated, JANI drain in place with minimal drainage present. - Neurologic Neurologic: Present: CNII-XII intact - Musculoskeletal Musculoskeletal: Present: strength equal bilaterally - Psychiatric Psychiatric: Present: A&O x's 3, appropriate affect, intact judgment & insight - Allied health notes Allied health notes reviewed: nursing - Labs CBC & Chem 7: 07/11/17 04:30 07/11/17 04:30 Labs: Abnormal Lab Results - Last 24 Hours (Table) 07/09/17 07/09/17 07/09/17 Range/Units 08:50 09:47 10:35 RBC (3.80-5.40) m/uL Hgb (11.4-16.0) gm/dL Hct (34.0-46.0) % Plt Count (150-450) k/uL Neutrophils # (1.3-7.7) k/uL ABG pH (7.35-7.45) ABG pCO2 (35-45) mmHg ABG pO2 379 H 215 H 343 H (83-108) mmHg ABG Total CO2 26 H (19-24) mmol/L ABG O2 Saturation 100.0 H 99.8 H 99.9 H (94-97) % ABG Hematocrit 32 L (34.0-46.0) % ABG Potassium 5.4 H (3.4-4.5) mmol/L Glucose (74-99) mg/dL POC Glucose (mg/dL) (75-99) mg/dL Calcium (8.4-10.2) mg/dL Ionized Calcium Kiarra (4.5-5.3) mg/dL AST (14-36) U/L Total Protein (6.3-8.2) g/dL Albumin (3.5-5.0) g/dL Arterial Blood Potassium 5.4 H (3.4-4.5) mmol/L 07/09/17 07/09/17 07/09/17 Range/Units 11:01 11:38 12:02 RBC (3.80-5.40) m/uL Hgb (11.4-16.0) gm/dL Hct (34.0-46.0) % Plt Count (150-450) k/uL Neutrophils # (1.3-7.7) k/uL ABG pH 7.30 L 7.30 L (7.35-7.45) ABG pCO2 51 H 50 H (35-45) mmHg ABG pO2 314 H 312 H 283 H (83-108) mmHg ABG Total CO2 26 H 25 H (19-24) mmol/L ABG O2 Saturation 99.9 H 99.9 H 99.9 H (94-97) % ABG Hematocrit 31 L 32 L 32 L (34.0-46.0) % ABG Potassium (3.4-4.5) mmol/L Glucose (74-99) mg/dL POC Glucose (mg/dL) (75-99) mg/dL Calcium (8.4-10.2) mg/dL Ionized Calcium Kiarra (4.5-5.3) mg/dL AST (14-36) U/L Total Protein (6.3-8.2) g/dL Albumin (3.5-5.0) g/dL Arterial Blood Potassium (3.4-4.5) mmol/L 07/09/17 07/09/17 07/10/17 Range/Units 12:31 13:23 07:37 RBC (3.80-5.40) m/uL Hgb (11.4-16.0) gm/dL Hct (34.0-46.0) % Plt Count (150-450) k/uL Neutrophils # (1.3-7.7) k/uL ABG pH 7.34 L (7.35-7.45) ABG pCO2 (35-45) mmHg ABG pO2 370 H 411 H (83-108) mmHg ABG Total CO2 (19-24) mmol/L ABG O2 Saturation 99.9 H 100.0 H (94-97) % ABG Hematocrit 29 L 31 L (34.0-46.0) % ABG Potassium 4.8 H (3.4-4.5) mmol/L Glucose (74-99) mg/dL POC Glucose (mg/dL) 112 H (75-99) mg/dL Calcium (8.4-10.2) mg/dL Ionized Calcium Kiarra (4.5-5.3) mg/dL AST (14-36) U/L Total Protein (6.3-8.2) g/dL Albumin (3.5-5.0) g/dL Arterial Blood Potassium 4.8 H (3.4-4.5) mmol/L 07/10/17 07/10/17 07/10/17 Range/Units 09:28 11:00 14:13 RBC (3.80-5.40) m/uL Hgb (11.4-16.0) gm/dL Hct (34.0-46.0) % Plt Count (150-450) k/uL Neutrophils # (1.3-7.7) k/uL ABG pH (7.35-7.45) ABG pCO2 (35-45) mmHg ABG pO2 (83-108) mmHg ABG Total CO2 (19-24) mmol/L ABG O2 Saturation (94-97) % ABG Hematocrit (34.0-46.0) % ABG Potassium (3.4-4.5) mmol/L Glucose (74-99) mg/dL POC Glucose (mg/dL) 142 H 133 H 157 H (75-99) mg/dL Calcium (8.4-10.2) mg/dL Ionized Calcium Kiarra (4.5-5.3) mg/dL AST (14-36) U/L Total Protein (6.3-8.2) g/dL Albumin (3.5-5.0) g/dL Arterial Blood Potassium (3.4-4.5) mmol/L 07/10/17 07/10/17 07/10/17 Range/Units 15:08 16:24 16:48 RBC (3.80-5.40) m/uL Hgb (11.4-16.0) gm/dL Hct (34.0-46.0) % Plt Count (150-450) k/uL Neutrophils # (1.3-7.7) k/uL ABG pH (7.35-7.45) ABG pCO2 (35-45) mmHg ABG pO2 (83-108) mmHg ABG Total CO2 (19-24) mmol/L ABG O2 Saturation (94-97) % ABG Hematocrit (34.0-46.0) % ABG Potassium (3.4-4.5) mmol/L Glucose (74-99) mg/dL POC Glucose (mg/dL) 197 H 162 H 148 H (75-99) mg/dL Calcium (8.4-10.2) mg/dL Ionized Calcium Kiarra (4.5-5.3) mg/dL AST (14-36) U/L Total Protein (6.3-8.2) g/dL Albumin (3.5-5.0) g/dL Arterial Blood Potassium (3.4-4.5) mmol/L 07/10/17 07/10/17 07/10/17 Range/Units 18:05 19:12 20:27 RBC (3.80-5.40) m/uL Hgb (11.4-16.0) gm/dL Hct (34.0-46.0) % Plt Count (150-450) k/uL Neutrophils # (1.3-7.7) k/uL ABG pH (7.35-7.45) ABG pCO2 (35-45) mmHg ABG pO2 (83-108) mmHg ABG Total CO2 (19-24) mmol/L ABG O2 Saturation (94-97) % ABG Hematocrit (34.0-46.0) % ABG Potassium (3.4-4.5) mmol/L Glucose (74-99) mg/dL POC Glucose (mg/dL) 167 H 161 H 167 H (75-99) mg/dL Calcium (8.4-10.2) mg/dL Ionized Calcium Kiarra (4.5-5.3) mg/dL AST (14-36) U/L Total Protein (6.3-8.2) g/dL Albumin (3.5-5.0) g/dL Arterial Blood Potassium (3.4-4.5) mmol/L 07/10/17 07/10/17 07/10/17 Range/Units 21:57 23:01 23:52 RBC (3.80-5.40) m/uL Hgb (11.4-16.0) gm/dL Hct (34.0-46.0) % Plt Count (150-450) k/uL Neutrophils # (1.3-7.7) k/uL ABG pH (7.35-7.45) ABG pCO2 (35-45) mmHg ABG pO2 (83-108) mmHg ABG Total CO2 (19-24) mmol/L ABG O2 Saturation (94-97) % ABG Hematocrit (34.0-46.0) % ABG Potassium (3.4-4.5) mmol/L Glucose (74-99) mg/dL POC Glucose (mg/dL) 140 H 117 H 117 H (75-99) mg/dL Calcium (8.4-10.2) mg/dL Ionized Calcium Kiarra (4.5-5.3) mg/dL AST (14-36) U/L Total Protein (6.3-8.2) g/dL Albumin (3.5-5.0) g/dL Arterial Blood Potassium (3.4-4.5) mmol/L 07/11/17 07/11/17 07/11/17 Range/Units 01:04 03:12 04:30 RBC (3.80-5.40) m/uL Hgb (11.4-16.0) gm/dL Hct (34.0-46.0) % Plt Count (150-450) k/uL Neutrophils # (1.3-7.7) k/uL ABG pH (7.35-7.45) ABG pCO2 (35-45) mmHg ABG pO2 (83-108) mmHg ABG Total CO2 (19-24) mmol/L ABG O2 Saturation (94-97) % ABG Hematocrit (34.0-46.0) % ABG Potassium (3.4-4.5) mmol/L Glucose 111 H (74-99) mg/dL POC Glucose (mg/dL) 121 H 130 H (75-99) mg/dL Calcium 7.4 L (8.4-10.2) mg/dL Ionized Calcium Kiarra 4.4 L (4.5-5.3) mg/dL AST 56 H (14-36) U/L Total Protein 5.0 L (6.3-8.2) g/dL Albumin 2.8 L (3.5-5.0) g/dL Arterial Blood Potassium (3.4-4.5) mmol/L 07/11/17 07/11/17 07/11/17 Range/Units 04:30 05:19 06:01 RBC 3.12 L (3.80-5.40) m/uL Hgb 9.0 L (11.4-16.0) gm/dL Hct 28.2 L (34.0-46.0) % Plt Count 67 L (150-450) k/uL Neutrophils # 8.1 H (1.3-7.7) k/uL ABG pH (7.35-7.45) ABG pCO2 (35-45) mmHg ABG pO2 (83-108) mmHg ABG Total CO2 (19-24) mmol/L ABG O2 Saturation (94-97) % ABG Hematocrit (34.0-46.0) % ABG Potassium (3.4-4.5) mmol/L Glucose (74-99) mg/dL POC Glucose (mg/dL) 114 H 119 H (75-99) mg/dL Calcium (8.4-10.2) mg/dL Ionized Calcium Kiarra (4.5-5.3) mg/dL AST (14-36) U/L Total Protein (6.3-8.2) g/dL Albumin (3.5-5.0) g/dL Arterial Blood Potassium (3.4-4.5) mmol/L 07/11/17 Range/Units 07:10 RBC (3.80-5.40) m/uL Hgb (11.4-16.0) gm/dL Hct (34.0-46.0) % Plt Count (150-450) k/uL Neutrophils # (1.3-7.7) k/uL ABG pH (7.35-7.45) ABG pCO2 (35-45) mmHg ABG pO2 (83-108) mmHg ABG Total CO2 (19-24) mmol/L ABG O2 Saturation (94-97) % ABG Hematocrit (34.0-46.0) % ABG Potassium (3.4-4.5) mmol/L Glucose (74-99) mg/dL POC Glucose (mg/dL) 147 H (75-99) mg/dL Calcium (8.4-10.2) mg/dL Ionized Calcium Kiarra (4.5-5.3) mg/dL AST (14-36) U/L Total Protein (6.3-8.2) g/dL Albumin (3.5-5.0) g/dL Arterial Blood Potassium (3.4-4.5) mmol/L - Imaging and Cardiology Chest x-ray: report reviewed, image reviewed Assessment and Plan (1) Severe aortic stenosis Status: Acute (2) Osteoarthritis Status: Acute (3) Family history of coronary artery disease Status: Acute (4) History of basal cell carcinoma Status: Acute (5) Hyperthyroidism Status: Acute (6) Coronary artery disease Status: Acute (7) Diabetes mellitus, type II Status: Acute (8) Hyperlipidemia Status: Acute (9) Hypertension Status: Acute (10) Obesity (BMI 30.0-34.9) Status: Acute (11) Tobacco dependence Status: Acute Plan: 1. Continue aspirin, statin, Plavix, heparin subcu, beta betra. Will maximize beta berta therapy as tolerated. 2. Encourage incentive spirometer use. 3. Discontinue Amanda catheter. Likely will discontinue chest tubes. 4. Increase activity, ambulate in hallway. Physical therapy to follow. 5. GI for/DVT prophylaxis. 6. Will monitor daily labs, x-rays. 7. Insulin management per primary care service. 8. More recommendations as patient progresses. Likely will transfer out of ICU to 6 E. selective care today. Time with Patient: Greater than 30
[2017-07-11] MEDS ORDERED: FUROSEMIDE 10 MG/ML 2 ML VIAL IV ONE (07:30)
[2017-07-11] MEDS: ASPIRIN 325 MG TAB PO SCH (08:10)
[2017-07-11] MEDS: HEPARIN SODIUM,PORCINE 5,000 UNIT/ML 1 ML VIAL SQ SCH (08:10)
[2017-07-11] MEDS: ATORVASTATIN 40 MG TAB PO SCH (08:10)
[2017-07-11] MEDS: METHIMAZOLE 5 MG TAB PO SCH (08:11)
[2017-07-11] MEDS: PANTOPRAZOLE 40 MG TABLET PO SCH (08:13)
[2017-07-11] MEDS: MUPIROCIN 2% OINT 22 GM TUBE NASAL SCH ×2 (08:13→20:42)
[2017-07-11] MEDS: CLOPIDOGREL 75 MG TAB PO SCH (08:13)
[2017-07-11] MEDS: METOPROLOL TARTRATE 25 MG TAB PO SCH ×2 (08:13→20:42)
[2017-07-11 08:18] LABS: Glucose,Whole Blood 227 mg/dL (75-99)
[2017-07-11] MEDS: INSULN ASP PRT/INSULIN ASPART 100 UNIT/ML 10 ML VIAL SQ SCH (09:35)
--- NOTE | 2017-07-11 09:39 | P.PN ---
Subjective Progress Note Date: 07/11/17 Progress note dated 07/11/2017 This is a 72-year-old female who looks much older than her stated age who is postop day #2 status post aortic valve replacement for aortic stenosis and one- vessel bypass grafting. She also has a history of diabetes hyperlipidemia hypertension DJD basal cell carcinoma and chronic and ongoing tobacco dependence. The patient seemed be doing relatively well. Feeling well. No breathing issues. She is currently on room air. She's getting an IV of lactated Ringer's at 20 mL an hour. She's not having any pain. No shortness of breath difficulty breathing. No nausea vomiting or diarrhea. No fever or chills. Objective - Vital Signs Vital signs: Vital Signs Temp 98.7 F 07/11/17 08:00 Pulse 91 07/11/17 08:00 Resp 20 07/11/17 08:00 BP 109/49 07/11/17 08:00 Pulse Ox 92 L 07/11/17 08:00 Intake & Output 07/10/17 07/11/17 07/11/17 18:59 06:59 18:59 Intake Total 747.933 746.594 415.283 Output Total 1865 800 120 Balance -1117.067 -53.406 295.283 Weight 79.7 kg Intake: IV 675 672 112 Lactated Ringers 1,000 ml 600 600 100 @ 20 mls/hr IV .Q24H DEISY Rx#:[id number] Pressure Bag 75 72 12 Intake, IV Titration 72.933 24.594 3.283 Amount Clevidipine Butyrate 25 50.0 mg In Empty Bag 1 bag @ 1 MG/HR 2 mls/hr IV .Q24H DEISY Rx#:[id number] Insulin Regular 100 unit 22.933 24.594 3.283 In Sodium Chloride 0.9% 100 ml @ Per Protocol IV .Q0M DEISY Rx#:[id number] Oral 50 300 Output: Chest Tube Drainage 460 80 30 Right Pleural/Mediastinal 460 80 30 Drainage 0 15 Right Lower Calf 0 15 Urine 1405 720 75 Other: Voiding Method Indwelling Catheter Indwelling Catheter Indwelling Catheter ABP, PAP, CO, CI - Last Documented Arterial Blood Pressure 115/34 Pulmonary Artery Pressure 32/14 Cardiac Output 5 Cardiac Index 3.0 - Exam No acute distress, oriented 3. HEENT examination is grossly unremarkable. Mucous membranes are moist. No oral lesions. Neck supple. Full range of motion. No adenopathy or thyromegaly. Cardiovascular examination reveals regular rhythm rate. S1-S2 normal. There is no S3-S4 or murmur. Lungs reveal a few scattered rhonchi. No wheezes or crackles. Abdomen soft bowel sounds are heard. No so masses or tenderness. Extremities are intact. No cyanosis clubbing or edema. Skin is without rash. Neurologic examination is nonfocal. - Labs CBC & Chem 7: 07/11/17 04:30 07/11/17 04:30 Labs: Abnormal Lab Results - Last 24 Hours (Table) 07/09/17 07/09/17 07/09/17 Range/Units 08:50 09:47 10:35 RBC (3.80-5.40) m/uL Hgb (11.4-16.0) gm/dL Hct (34.0-46.0) % Plt Count (150-450) k/uL Neutrophils # (1.3-7.7) k/uL ABG pH (7.35-7.45) ABG pCO2 (35-45) mmHg ABG pO2 379 H 215 H 343 H (83-108) mmHg ABG Total CO2 26 H (19-24) mmol/L ABG O2 Saturation 100.0 H 99.8 H 99.9 H (94-97) % ABG Hematocrit 32 L (34.0-46.0) % ABG Potassium 5.4 H (3.4-4.5) mmol/L Glucose (74-99) mg/dL POC Glucose (mg/dL) (75-99) mg/dL Calcium (8.4-10.2) mg/dL Ionized Calcium Kiarra (4.5-5.3) mg/dL AST (14-36) U/L Total Protein (6.3-8.2) g/dL Albumin (3.5-5.0) g/dL Arterial Blood Potassium 5.4 H (3.4-4.5) mmol/L 07/09/17 07/09/17 07/09/17 Range/Units 11:01 11:38 12:02 RBC (3.80-5.40) m/uL Hgb (11.4-16.0) gm/dL Hct (34.0-46.0) % Plt Count (150-450) k/uL Neutrophils # (1.3-7.7) k/uL ABG pH 7.30 L 7.30 L (7.35-7.45) ABG pCO2 51 H 50 H (35-45) mmHg ABG pO2 314 H 312 H 283 H (83-108) mmHg ABG Total CO2 26 H 25 H (19-24) mmol/L ABG O2 Saturation 99.9 H 99.9 H 99.9 H (94-97) % ABG Hematocrit 31 L 32 L 32 L (34.0-46.0) % ABG Potassium (3.4-4.5) mmol/L Glucose (74-99) mg/dL POC Glucose (mg/dL) (75-99) mg/dL Calcium (8.4-10.2) mg/dL Ionized Calcium Kiarra (4.5-5.3) mg/dL AST (14-36) U/L Total Protein (6.3-8.2) g/dL Albumin (3.5-5.0) g/dL Arterial Blood Potassium (3.4-4.5) mmol/L 07/09/17 07/09/17 07/10/17 Range/Units 12:31 13:23 11:00 RBC (3.80-5.40) m/uL Hgb (11.4-16.0) gm/dL Hct (34.0-46.0) % Plt Count (150-450) k/uL Neutrophils # (1.3-7.7) k/uL ABG pH 7.34 L (7.35-7.45) ABG pCO2 (35-45) mmHg ABG pO2 370 H 411 H (83-108) mmHg ABG Total CO2 (19-24) mmol/L ABG O2 Saturation 99.9 H 100.0 H (94-97) % ABG Hematocrit 29 L 31 L (34.0-46.0) % ABG Potassium 4.8 H (3.4-4.5) mmol/L Glucose (74-99) mg/dL POC Glucose (mg/dL) 133 H (75-99) mg/dL Calcium (8.4-10.2) mg/dL Ionized Calcium Kiarra (4.5-5.3) mg/dL AST (14-36) U/L Total Protein (6.3-8.2) g/dL Albumin (3.5-5.0) g/dL Arterial Blood Potassium 4.8 H (3.4-4.5) mmol/L 07/10/17 07/10/17 07/10/17 Range/Units 14:13 15:08 16:24 RBC (3.80-5.40) m/uL Hgb (11.4-16.0) gm/dL Hct (34.0-46.0) % Plt Count (150-450) k/uL Neutrophils # (1.3-7.7) k/uL ABG pH (7.35-7.45) ABG pCO2 (35-45) mmHg ABG pO2 (83-108) mmHg ABG Total CO2 (19-24) mmol/L ABG O2 Saturation (94-97) % ABG Hematocrit (34.0-46.0) % ABG Potassium (3.4-4.5) mmol/L Glucose (74-99) mg/dL POC Glucose (mg/dL) 157 H 197 H 162 H (75-99) mg/dL Calcium (8.4-10.2) mg/dL Ionized Calcium Kiarra (4.5-5.3) mg/dL AST (14-36) U/L Total Protein (6.3-8.2) g/dL Albumin (3.5-5.0) g/dL Arterial Blood Potassium (3.4-4.5) mmol/L 07/10/17 07/10/17 07/10/17 Range/Units 16:48 18:05 19:12 RBC (3.80-5.40) m/uL Hgb (11.4-16.0) gm/dL Hct (34.0-46.0) % Plt Count (150-450) k/uL Neutrophils # (1.3-7.7) k/uL ABG pH (7.35-7.45) ABG pCO2 (35-45) mmHg ABG pO2 (83-108) mmHg ABG Total CO2 (19-24) mmol/L ABG O2 Saturation (94-97) % ABG Hematocrit (34.0-46.0) % ABG Potassium (3.4-4.5) mmol/L Glucose (74-99) mg/dL POC Glucose (mg/dL) 148 H 167 H 161 H (75-99) mg/dL Calcium (8.4-10.2) mg/dL Ionized Calcium Kiarra (4.5-5.3) mg/dL AST (14-36) U/L Total Protein (6.3-8.2) g/dL Albumin (3.5-5.0) g/dL Arterial Blood Potassium (3.4-4.5) mmol/L 07/10/17 07/10/17 07/10/17 Range/Units 20:27 21:57 23:01 RBC (3.80-5.40) m/uL Hgb (11.4-16.0) gm/dL Hct (34.0-46.0) % Plt Count (150-450) k/uL Neutrophils # (1.3-7.7) k/uL ABG pH (7.35-7.45) ABG pCO2 (35-45) mmHg ABG pO2 (83-108) mmHg ABG Total CO2 (19-24) mmol/L ABG O2 Saturation (94-97) % ABG Hematocrit (34.0-46.0) % ABG Potassium (3.4-4.5) mmol/L Glucose (74-99) mg/dL POC Glucose (mg/dL) 167 H 140 H 117 H (75-99) mg/dL Calcium (8.4-10.2) mg/dL Ionized Calcium Kiarra (4.5-5.3) mg/dL AST (14-36) U/L Total Protein (6.3-8.2) g/dL Albumin (3.5-5.0) g/dL Arterial Blood Potassium (3.4-4.5) mmol/L 07/10/17 07/11/17 07/11/17 Range/Units 23:52 01:04 03:12 RBC (3.80-5.40) m/uL Hgb (11.4-16.0) gm/dL Hct (34.0-46.0) % Plt Count (150-450) k/uL Neutrophils # (1.3-7.7) k/uL ABG pH (7.35-7.45) ABG pCO2 (35-45) mmHg ABG pO2 (83-108) mmHg ABG Total CO2 (19-24) mmol/L ABG O2 Saturation (94-97) % ABG Hematocrit (34.0-46.0) % ABG Potassium (3.4-4.5) mmol/L Glucose (74-99) mg/dL POC Glucose (mg/dL) 117 H 121 H 130 H (75-99) mg/dL Calcium (8.4-10.2) mg/dL Ionized Calcium Kiarra (4.5-5.3) mg/dL AST (14-36) U/L Total Protein (6.3-8.2) g/dL Albumin (3.5-5.0) g/dL Arterial Blood Potassium (3.4-4.5) mmol/L 07/11/17 07/11/17 07/11/17 Range/Units 04:30 04:30 05:19 RBC 3.12 L (3.80-5.40) m/uL Hgb 9.0 L (11.4-16.0) gm/dL Hct 28.2 L (34.0-46.0) % Plt Count 67 L (150-450) k/uL Neutrophils # 8.1 H (1.3-7.7) k/uL ABG pH (7.35-7.45) ABG pCO2 (35-45) mmHg ABG pO2 (83-108) mmHg ABG Total CO2 (19-24) mmol/L ABG O2 Saturation (94-97) % ABG Hematocrit (34.0-46.0) % ABG Potassium (3.4-4.5) mmol/L Glucose 111 H (74-99) mg/dL POC Glucose (mg/dL) 114 H (75-99) mg/dL Calcium 7.4 L (8.4-10.2) mg/dL Ionized Calcium Kiarra 4.4 L (4.5-5.3) mg/dL AST 56 H (14-36) U/L Total Protein 5.0 L (6.3-8.2) g/dL Albumin 2.8 L (3.5-5.0) g/dL Arterial Blood Potassium (3.4-4.5) mmol/L 07/11/17 07/11/17 07/11/17 Range/Units 06:01 07:10 08:16 RBC (3.80-5.40) m/uL Hgb (11.4-16.0) gm/dL Hct (34.0-46.0) % Plt Count (150-450) k/uL Neutrophils # (1.3-7.7) k/uL ABG pH (7.35-7.45) ABG pCO2 (35-45) mmHg ABG pO2 (83-108) mmHg ABG Total CO2 (19-24) mmol/L ABG O2 Saturation (94-97) % ABG Hematocrit (34.0-46.0) % ABG Potassium (3.4-4.5) mmol/L Glucose (74-99) mg/dL POC Glucose (mg/dL) 119 H 147 H 227 H (75-99) mg/dL Calcium (8.4-10.2) mg/dL Ionized Calcium Kiarra (4.5-5.3) mg/dL AST (14-36) U/L Total Protein (6.3-8.2) g/dL Albumin (3.5-5.0) g/dL Arterial Blood Potassium (3.4-4.5) mmol/L Assessment and Plan (1) Family history of coronary artery disease Status: Acute (2) Hyperthyroidism Status: Acute (3) Osteoarthritis Status: Acute (4) Severe aortic stenosis Status: Acute (5) Coronary artery disease Status: Acute (6) Diabetes mellitus, type II Status: Acute (7) Hyperlipidemia Status: Acute (8) Hypertension Status: Acute (9) Obesity (BMI 30.0-34.9) Status: Acute (10) Tobacco dependence Status: Acute Plan: Plan dated 07/11/2017 The patient seemed be doing relatively well. She's been weaned off of oxygen. Mediastinal chest tube was removed. She'll be transferred out to the floor. She'll continue on updrafts. We recommend the use of the incentive spirometer every hour while awake. Finally, the patient should really focus on deep breathing coughing and clearing of secretions. Time with Patient: Less than 30
[2017-07-11 12:06] LABS: Glucose,Whole Blood 209 mg/dL (75-99)
[2017-07-11] MEDS: CHOLECALCIFEROL 1,000 UNIT TAB PO SCH (12:06)
[2017-07-11] MEDS: MULTIVITAMINS, THERA 1 EACH TAB PO SCH (12:07)
[2017-07-11] MEDS: INSULIN LISPRO (humaLOG) 300 UNIT/3 ML VIAL SQ SCH ×4 (12:14→20:41)
--- NOTE | 2017-07-11 13:26 | PN ---
PROGRESS NOTE Mrs. Justin is a 72-year-old female who underwent aortic valve replacement and single bypass to the left circumflex. She is sitting up in the chair, feeling much better. Her breathing is stable. She still has some soreness in the chest. She has no dizziness. No palpitation. She continues to be in sinus mechanism without much difficulty. She continues to be at this time on metoprolol tartrate 25 mg twice a day, aspirin once a day, Lipitor 40 mg daily, Plavix 75 mg daily. She has received 1 dose of Lasix 20 mg. PHYSICAL EXAMINATION: Blood pressure 113/50 with a heart in 70. Lungs with mild crackles at the bases. No wheezes. Heart regular rate and rhythm S1, S2 with soft systolic murmur. No rub appreciated. ABDOMEN: Soft, nontender. EXTREMITIES: With mild edema. LAB DATA: Lab data revealed a BUN and creatinine 13 and 0.72, potassium 4.1. Hemoglobin of 9. IMPRESSION: 1. Status post aortic valve replacement and coronary artery bypass grafting. 2. History of hyperlipidemia. 3. Diabetes. 4. Hypertension. RECOMMENDATION: Continue present therapy. Continue incentive spirometry. Increase the level of activity and hopefully she will be transferred to telemetry floor and depending on her progress, further recommendations will be made. MMODL / IJN: [id number] /
--- NOTE | 2017-07-11 14:01 | P.PN ---
Progress Note - Text Progress Note Date: 07/11/17 DATE OF SERVICE: 07/11/2017 PRESENTING COMPLAINT: scheduled surgery for aortic valve replacement HISTORY OF PRESENT ILLNESS: 72-year-old female status post aortic valve replacement with biprosthetic valve single vessel CABG.postoperatively patient was intubated and sedated and on critical care drips. This morning, patient off all drips, chest tube Amanda catheter and [place]-Eriberto in place. INTERVAL HISTORY: 07/11/2017: patient lying in bed appears tired but alert and able to answer questions. Had been up in the chair for a while. No drips are on. Tolerating her diet, transfers with assistance, feels as though she needs to have a bowel movement.mediastinal chest tube removed earlier. 07/10/2017: patient sitting up in chair,tired appearing successfully extubated. Heart Hugger in place, drips include insulin and Cleviprex.right pleural/mediastinal chest tube to suction,appetite is low, barely ate 10% of her breakfast. REVIEW OF SYSTEMS: Done for constitutional ,cardiovascular, GI, pulmonary , chest wall,with relevant findings as above. CURRENT MEDICATIONS DuoNeb's, Lipitor 40 mg by mouth daily,Plavix 75 mg by mouth daily, Tapazole 10 mg by mouth daily, Lopressor 25mg by mouth twice a day,oxycodone 10 mg by mouth every 4 hours, Protonix 40 mg by mouth before meals. PHYSICAL EXAM VITAL SIGNS: temperature 98.7, pulse 75, respiratory rate 22, blood pressure 113/50, oxygen saturation 93% on room air. GENERAL APPEARANCE: Sitting up in bed tired appearing. EYES: Pupils equal. Conjunctiva normal. NECK: JVD not raised. Mass not palpable. right [place]-Eriberto catheter in place RESPIRATORY: Respiratory effort normal. Lungs diminished to auscultation. CARDIOVASCULAR: First and second sounds normal. No edema. CHEST:a pleural mediastinal chest tube to suction with serosanguineous drainage, no air leak present, Heart Hugger in place ABDOMEN: Soft. Liver and spleen not palpable. No tenderness. No mass palpable. PSYCHIATRY: Alert and oriented x3. Mood and affect normal. INVESTIGATIONS: hemoglobin 9.0,calcium 7.4, AST 56, Accu-Cheks noted. ASSESSMENT: -status post surgery for single-vessel bypass and aortic valve replacement with bioprosthetic valve and left atrial appendage clipping. -Postoperative ventilator assistance as expected for respiratory support, extubated this morning -Diabetes mellitus type 2 currently on insulin drip -Gastroesophageal reflux disease. -Essential hypertension. -Hyperlipidemia. -Primary osteoarthritis. -Hypothyroidism PLAN: continue current medication and treatment plan, increase activity, physical therapy to follow. likely to transfer to [facility] .plan of care discussed with the patient at the bedside, she is in agreement. We'll follow closely STAFF PSYCHOLOGIST statement: Patient was seen and examined by nurse practitioner Delaney Del Toro and all elements of the case discussed with attending Dr. Church
[2017-07-11] MEDS: LACTATED RINGERS 1,000 ML IV SCH (15:31)
[2017-07-11 17:02] LABS: Glucose,Whole Blood 156 mg/dL (75-99)
[2017-07-11 20:35] LABS: Glucose,Whole Blood 187 mg/dL (75-99)
[2017-07-11] MEDS: SENNOSIDES-DOCUSATE SODIUM 1 EACH TAB PO SCH (20:39)
[2017-07-11] MEDS: INSULIN NPH 300 UNIT/3 ML VIAL SQ SCH (20:40)
[2017-07-12 04:41] LABS: ALT 38 U/L (9-52); AST 36 U/L (14-36); Alkaline Phosphatase 63 U/L (38-126); Anion Gap 6 mmol/L; Blood Urea Nitrogen 13 mg/dL (7-17); Calcium 7.9 mg/dL (8.4-10.2); Carbon Dioxide 24 mmol/L (22-30); Chloride 105 mmol/L (98-107); Glucose 187 mg/dL (74-99); Non-African American GFR(MDRD) >60 (>60 ml/min/1.73 sqM); Sodium 135 mmol/L (137-145); Total Bilirubin 0.5 mg/dL (0.2-1.3); Total Protein 5.4 g/dL (6.3-8.2)
--- NOTE | 2017-07-12 05:53 | PN ---
PROGRESS NOTE DATE OF SERVICE: 07/11/2017 ATTENDING NOTE: This patient was seen and examined by me. I discussed with my nurse practitioner, Ms. Del Toro. Patient is status post single-vessel bypass and aortic valve replacement. Doing better. Lying in bed. Off all drips. Did tolerate some diet. PHYSICAL EXAMINATION: LUNGS: Decreased breath sounds. CARDIOVASCULAR: First and second sounds normal. Afebrile. Blood pressure 113/50, pulse ox 93% on room air. Accu-Cheks are noted. ASSESSMENT: Status post CABG and aortic valve replacement. The patient is status post ventilator. Continue current medication and treatment plan and follow. MMODL / IJN: [id number] /
[2017-07-12 07:12] LABS: Basophils # (A) 0.1 k/uL (0-0.2); Basophils % (A) 1 %; CH 28.2; Eosinophils # (A) 0.1 k/uL (0-0.7); Eosinophils % (A) 1 %; HCT 30.1 % (34.0-46.0); HDW 2.54; HGB 9.5 gm/dL (11.4-16.0); Hypochromasia Slight; Luc # (Auto) 0.19; Luc % (Auto) 2; Lymphocytes # (A) 1.2 k/uL (1.0-4.8); Lymphocytes % (A) 11 %; MCH 28.6 pg (25.0-35.0); MCHC 31.4 g/dL (31.0-37.0); MCV 91.3 fL (80.0-100.0); Mean Platelet Volume 9.7; Monocytes # (A) 0.5 k/uL (0-1.0); Monocytes % (A) 5 %; Neutrophils # (A) 8.7 k/uL (1.3-7.7); Neutrophils % (A) 81 %; RDW 14.4 % (11.5-15.5); WBC 10.8 k/uL (3.8-10.6); WBC (Perox) 11.06
--- NOTE | 2017-07-12 07:14 | XR ---
EXAMINATION TYPE: XR chest 1V portable DATE OF EXAM: 07/12/2017 Comparison: 07/11/2017 Clinical History: 72-year-old female shortness of breath Findings: Median sternotomy wires are present with prosthetic aortic valve. Heart remains mildly enlarged. Diff use interstitial prominence persists with patchy left greater than right bibasilar opacities. Some fo miriam density in the right upper midlung is also present. Right-sided chest tube is present. External a rtifacts project over the apices. Impression: 1. Similar cardiomegaly with residual mild pulmonary vascular congestion. 2. Small left effusion with patchy bibasilar atelectasis and/or consolidation relatively similar. 3. Focal upper to midlung opacity in the right lung is also unchanged.
[2017-07-12 07:26] LABS: Glucose,Whole Blood 155 mg/dL (75-99)
[2017-07-12] MEDS ORDERED: FUROSEMIDE 10 MG/ML 2 ML VIAL IV ONE (07:29)
--- NOTE | 2017-07-12 07:29 | P.PN ---
Addendum entered and electronically signed by Eboni Moses DEFLECTOR OPERATORHugoC 07/12/17 10:00 : Epicardial pacemaker wires discontinued intact, no ectopy noted. Right pleural chest tube discontinued without incident. CXR in AM. Original Note: <Eboni Moses - Last Filed: 07/12/17 07:21> Subjective Progress Note Date: 07/12/17 Principal diagnosis: Severe aortic valve stenosis. Coronary artery disease. Type 2 diabetes mellitus with hemoglobin A1c 6.1%. Hyperlipidemia. Hypertension. Osteoarthritis. Hyperthyroidism. History of basal cell skin cancer. Obesity. Current tobacco dependence. Family history of heart disease. POD #3 elective aortic valve replacement using 21 mm Szymanski magna ease bioprosthetic tissue valve. Coronary artery bypass grafting 1 vessel, reverse saphenous vein graft to obtuse marginal artery. Endoscopic vein harvesting right greater saphenous vein. Epi-aortic ultrasound. Intraoperative transesophageal echocardiogram. Clipping of left atrial appendage using a 35 mm Atriclip. Patient is currently sitting up in a recliner in no acute distress. No new complaints. Transfer orders placed yesterday to transfer patient to stepdown unit. Mediastinal chest tube discontinued yesterday. Objective - Vital Signs Vital signs: Vital Signs Temp 99 F 07/12/17 04:00 Pulse 85 07/12/17 04:00 Resp 22 07/12/17 04:00 BP 115/59 07/12/17 04:00 Pulse Ox 92 L 07/12/17 04:00 Intake & Output 07/11/17 07/12/17 07/12/17 18:59 06:59 18:59 Intake Total 521.283 40 Output Total 960 375 Balance -438.717 -335 Intake: IV 218 40 Lactated Ringers 1,000 ml 200 40 @ 20 mls/hr IV .Q24H DEISY Rx#:[id number] Pressure Bag 18 Intake, IV Titration 3.283 Amount Insulin Regular 100 unit 3.283 In Sodium Chloride 0.9% 100 ml @ Per Protocol IV .Q0M DEISY Rx#:[id number] Oral 300 Output: Chest Tube Drainage 60 Right Pleural/Mediastinal 50 Right pleural 10 Drainage 85 25 Right Lower Calf 85 25 Urine 815 350 Other: Voiding Method Indwelling Catheter Bedside Commode ABP, PAP, CO, CI - Last Documented Arterial Blood Pressure 139/56 Pulmonary Artery Pressure 32/14 Cardiac Output 5 Cardiac Index 3.0 - Constitutional General appearance: Present: cooperative, no acute distress, obese - Respiratory Details: Lungs sounds diminished bilaterally. Respirations even, nonlabored. Currently on room air with oxygen saturation 92%. Only able to achieve 500 mL on incentive spirometry. Effective cough. Right pleural chest tube to -20 cm wall suction, 15 mL of thin serosanguineous drainage in the last 24 hours. No air leak present. Chest x-ray reviewed, left pleural effusion, atelectasis. - Cardiovascular Details: S1, S2 present. Regular rate and rhythm, normal sinus rhythm on telemetry. Sternum stable. A/V epicardial pacemaker wires present, grounded. Palpable pulses bilaterally. Trace bilateral lower extremity edema present. Heart hugger in place with patient demonstrating appropriate use. Antiembolism stockings, SCDs present. - Gastrointestinal Gastrointestinal Comment(s): Abdomen soft, nontender, nondistended. Active bowel sounds 4 quadrants. Tolerating diet. Positive flatus, negative BM since surgery. - Genitourinary Genitourinary Comment(s): Amanda discontinued yesterday. Positive void clear yellow urine. - Integumentary Integumentary Comment(s): Anterior chest incision well approximated and covered with dry intact dressing. Right lower extremity EVH site well approximated, JANI drain in place with thin serosanguineous drainage. - Neurologic Neurologic: Present: CNII-XII intact - Musculoskeletal Musculoskeletal: Present: gait normal, strength equal bilaterally - Psychiatric Psychiatric: Present: A&O x's 3, appropriate affect, intact judgment & insight - Allied health notes Allied health notes reviewed: nursing - Labs CBC & Chem 7: 07/12/17 06:54 07/12/17 03:55 Labs: Abnormal Lab Results - Last 24 Hours (Table) 07/11/17 07/11/17 07/11/17 Range/Units 08:16 12:04 17:01 WBC (3.8-10.6) k/uL RBC (3.80-5.40) m/uL Hgb (11.4-16.0) gm/dL Hct (34.0-46.0) % Plt Count (150-450) k/uL Neutrophils # (1.3-7.7) k/uL Sodium (137-145) mmol/L Glucose (74-99) mg/dL POC Glucose (mg/dL) 227 H 209 H 156 H (75-99) mg/dL Calcium (8.4-10.2) mg/dL Total Protein (6.3-8.2) g/dL Albumin (3.5-5.0) g/dL 07/11/17 07/12/17 07/12/17 Range/Units 20:33 03:55 06:54 WBC 10.8 H (3.8-10.6) k/uL RBC 3.30 L (3.80-5.40) m/uL Hgb 9.5 L (11.4-16.0) gm/dL Hct 30.1 L (34.0-46.0) % Plt Count 93 L (150-450) k/uL Neutrophils # 8.7 H (1.3-7.7) k/uL Sodium 135 L (137-145) mmol/L Glucose 187 H (74-99) mg/dL POC Glucose (mg/dL) 187 H (75-99) mg/dL Calcium 7.9 L (8.4-10.2) mg/dL Total Protein 5.4 L (6.3-8.2) g/dL Albumin 2.9 L (3.5-5.0) g/dL - Imaging and Cardiology Chest x-ray: report reviewed, image reviewed Assessment and Plan (1) Severe aortic stenosis Status: Acute (2) Osteoarthritis Status: Acute (3) Family history of coronary artery disease Status: Acute (4) History of basal cell carcinoma Status: Acute (5) Hyperthyroidism Status: Acute (6) Coronary artery disease Status: Acute (7) Diabetes mellitus, type II Status: Acute (8) Hyperlipidemia Status: Acute (9) Hypertension Status: Acute (10) Obesity (BMI 30.0-34.9) Status: Acute (11) Tobacco dependence Status: Acute Plan: 1. Continue aspirin, statin, Plavix, heparin subcu, beta berta. Will maximize beta berta therapy as tolerated. 2. Encourage incentive spirometer use. 3. Will discontinue pleural chest tube, pacemaker wires. 4. Increase activity, ambulate in hallway. Physical therapy to follow. 5. GI for/DVT prophylaxis. 6. Will monitor daily labs, x-rays. 7. Insulin management per primary care service. 8. More recommendations as patient progresses. Transfer out of ICU to [facility] care when bed available. 9. Discharge planning in progress. Will need subacute rehab at discharge. Case management/social work consulted for insurance authorization. Possible discharge in the next 24-48 hours. Time with Patient: Greater than 30 <Nathaniel Odonnell - Last Filed: 07/12/17 16:37> Objective - Vital Signs Vital signs: Vital Signs Temp 98.9 F 07/12/17 10:00 Pulse 93 07/12/17 10:00 Resp 25 H 07/12/17 10:00 BP 117/56 07/12/17 10:00 Pulse Ox 94 L 07/12/17 10:00 Intake & Output 07/11/17 07/12/17 07/12/17 18:59 06:59 18:59 Intake Total 521.283 40 0 Output Total 010 344 3341 Balance -438.717 -335 -1150 Weight 77.8 kg Intake: IV 218 40 0 Lactated Ringers 1,000 ml 200 40 0 @ 20 mls/hr IV .Q24H DEISY Rx#:[id number] Pressure Bag 18 Intake, IV Titration 3.283 Amount Insulin Regular 100 unit 3.283 In Sodium Chloride 0.9% 100 ml @ Per Protocol IV .Q0M DEISY Rx#:[id number] Oral 300 Output: Chest Tube Drainage 60 0 Right Pleural/Mediastinal 50 Right pleural 10 0 Drainage 85 25 100 Right Lower Calf 85 25 100 Urine 190 389 7033 Other: Voiding Method Indwelling Catheter Bedside Commode ABP, PAP, CO, CI - Last Documented Arterial Blood Pressure 139/56 Pulmonary Artery Pressure 32/14 Cardiac Output 5 Cardiac Index 3.0 - Labs CBC & Chem 7: 07/12/17 06:54 07/12/17 03:55 Labs: Abnormal Lab Results - Last 24 Hours (Table) 07/11/17 07/11/17 07/12/17 Range/Units 17:01 20:33 03:55 WBC (3.8-10.6) k/uL RBC (3.80-5.40) m/uL Hgb (11.4-16.0) gm/dL Hct (34.0-46.0) % Plt Count (150-450) k/uL Neutrophils # (1.3-7.7) k/uL Sodium 135 L (137-145) mmol/L Glucose 187 H (74-99) mg/dL POC Glucose (mg/dL) 156 H 187 H (75-99) mg/dL Calcium 7.9 L (8.4-10.2) mg/dL Total Protein 5.4 L (6.3-8.2) g/dL Albumin 2.9 L (3.5-5.0) g/dL 07/12/17 07/12/17 07/12/17 Range/Units 06:54 07:23 12:17 WBC 10.8 H (3.8-10.6) k/uL RBC 3.30 L (3.80-5.40) m/uL Hgb 9.5 L (11.4-16.0) gm/dL Hct 30.1 L (34.0-46.0) % Plt Count 93 L (150-450) k/uL Neutrophils # 8.7 H (1.3-7.7) k/uL Sodium (137-145) mmol/L Glucose (74-99) mg/dL POC Glucose (mg/dL) 155 H 159 H (75-99) mg/dL Calcium (8.4-10.2) mg/dL Total Protein (6.3-8.2) g/dL Albumin (3.5-5.0) g/dL Assessment and Plan Plan: The patient was seen and examined. I agree with the above assessment and plan. Overall she is doing well. Her laboratory studies and chest x-ray were reviewed. We will remove her remaining pleural chest tube today and transfer her to selective care. Otherwise we'll continue to encourage incentive spirometry. She'll ambulate with physical therapy. She will likely need rehab upon discharge from the hospital.
[2017-07-12 07:46] LABS: Ionized Calcium 4.5 mg/dL (4.5-5.3)
[2017-07-12] MEDS: INSULIN LISPRO (humaLOG) 300 UNIT/3 ML VIAL SQ SCH ×5 (08:03→21:09)
[2017-07-12] MEDS: INSULN ASP PRT/INSULIN ASPART 100 UNIT/ML 10 ML VIAL SQ SCH (08:05)
[2017-07-12] MEDS: CLOPIDOGREL 75 MG TAB PO SCH (08:06)
[2017-07-12] MEDS: PANTOPRAZOLE 40 MG TABLET PO SCH (08:06)
[2017-07-12] MEDS: METOPROLOL TARTRATE 25 MG TAB PO SCH ×3 (08:06→21:09)
[2017-07-12] MEDS: ASPIRIN 325 MG TAB PO SCH (08:06)
[2017-07-12] MEDS: ATORVASTATIN 40 MG TAB PO SCH (08:06)
[2017-07-12] MEDS: MULTIVITAMINS, THERA 1 EACH TAB PO SCH (08:07)
[2017-07-12] MEDS: CHOLECALCIFEROL 1,000 UNIT TAB PO SCH (08:07)
[2017-07-12] MEDS: METHIMAZOLE 5 MG TAB PO SCH (08:07)
[2017-07-12] MEDS: MUPIROCIN 2% OINT 22 GM TUBE NASAL SCH ×4 (08:12→21:11)
--- NOTE | 2017-07-12 08:47 | PN ---
PROGRESS NOTE Ms. Justin is a 72-year-old female who has underwent aortic valve replacement and coronary bypass grafting. She is sitting up in the chair, feeling well. Her breathing is stable. She ambulated yesterday. She denies any dizziness, palpitation. She denies any nausea. She continues to be in sinus mechanism. Hemodynamically, she has been stable. Her appetite has been stable. She continued to be on aspirin once a day, Lipitor 40 mg daily, Plavix 75 mg daily, metoprolol tartrate 25 mg twice a day. PHYSICAL EXAMINATION: Blood pressure 115/59 with a heart rate in the 80s. Lungs with mild crackles in the bases. HEART: Regular rate and rhythm, S1, S2. No S3 with systolic murmur. No rub. ABDOMEN: Soft, nontender. EXTREMITIES: 1+ edema. LAB DATA: Revealed hemoglobin of 9.5. BUN and creatinine 13 and 0.6, potassium 5.0. IMPRESSION: 1. Status post bypass grafting and aortic valve replacement. 2. Hypertension. 3. Hyperlipidemia. RECOMMENDATION: From the cardiac standpoint, she is stable. I will continue to increase her level of activity. Depending on her progress, further recommendation will be made. MMODL / IJN: [id number] /
[2017-07-12 12:18] LABS: Glucose,Whole Blood 159 mg/dL (75-99)
--- NOTE | 2017-07-12 12:50 | P.PN ---
Subjective Progress Note Date: 07/12/17 82-year-old female patient with severe aortic stenosis and the patient underwent an aortic valve replacement and a single-vessel bypass surgery with reverse saphenous vein graft to obtuse marginal coronary artery. The patient is postop day #4. She is doing extremely well. Chest tubes have been removed. [place]-Eriberto catheter has been removed. Surgical wound site is dry clean and intact and she is hemodynamically stable. She is pulse oxing 94% on room air. No other significant events over the past 24 hours. The pacemaker leads have been also removed. As such there has been no other significant events over the past 24 hours. Minimal luminal stable at 9.5. Objective - Vital Signs Vital signs: Vital Signs Temp 98.9 F 07/12/17 10:00 Pulse 93 07/12/17 10:00 Resp 25 H 07/12/17 10:00 BP 117/56 07/12/17 10:00 Pulse Ox 94 L 07/12/17 10:00 Intake & Output 07/11/17 07/12/17 07/12/17 18:59 06:59 18:59 Intake Total 521.283 40 0 Output Total 728 299 7436 Balance -438.717 -335 -1150 Weight 77.8 kg Intake: IV 218 40 0 Lactated Ringers 1,000 ml 200 40 0 @ 20 mls/hr IV .Q24H DEISY Rx#:[id number] Pressure Bag 18 Intake, IV Titration 3.283 Amount Insulin Regular 100 unit 3.283 In Sodium Chloride 0.9% 100 ml @ Per Protocol IV .Q0M DEISY Rx#:[id number] Oral 300 Output: Chest Tube Drainage 60 0 Right Pleural/Mediastinal 50 Right pleural 10 0 Drainage 85 25 100 Right Lower Calf 85 25 100 Urine 546 115 7646 Other: Voiding Method Indwelling Catheter Bedside Commode ABP, PAP, CO, CI - Last Documented Arterial Blood Pressure 139/56 Pulmonary Artery Pressure 32/14 Cardiac Output 5 Cardiac Index 3.0 - Exam GENERAL APPEARANCE: Sitting up in bed tired appearing. EYES: Pupils equal. Conjunctiva normal. NECK: JVD not raised. Mass not palpable. right [place]-Eriberto catheter in place RESPIRATORY: Respiratory effort normal. Lungs diminished to auscultation. CARDIOVASCULAR: First and second sounds normal. No edema. CHEST:a pleural mediastinal chest tube to suction with serosanguineous drainage, no air leak present, Heart Hugger in place ABDOMEN: Soft. Liver and spleen not palpable. No tenderness. No mass palpable. PSYCHIATRY: Alert and oriented x3. Mood and affect normal. Skin:Examination of the skin revealed no evidence of significant rashes, suspicious appearing nevi or other concerning lesions. - Labs CBC & Chem 7: 07/12/17 06:54 07/12/17 03:55 Labs: Abnormal Lab Results - Last 24 Hours (Table) 07/11/17 07/11/17 07/12/17 Range/Units 17:01 20:33 03:55 WBC (3.8-10.6) k/uL RBC (3.80-5.40) m/uL Hgb (11.4-16.0) gm/dL Hct (34.0-46.0) % Plt Count (150-450) k/uL Neutrophils # (1.3-7.7) k/uL Sodium 135 L (137-145) mmol/L Glucose 187 H (74-99) mg/dL POC Glucose (mg/dL) 156 H 187 H (75-99) mg/dL Calcium 7.9 L (8.4-10.2) mg/dL Total Protein 5.4 L (6.3-8.2) g/dL Albumin 2.9 L (3.5-5.0) g/dL 07/12/17 07/12/17 07/12/17 Range/Units 06:54 07:23 12:17 WBC 10.8 H (3.8-10.6) k/uL RBC 3.30 L (3.80-5.40) m/uL Hgb 9.5 L (11.4-16.0) gm/dL Hct 30.1 L (34.0-46.0) % Plt Count 93 L (150-450) k/uL Neutrophils # 8.7 H (1.3-7.7) k/uL Sodium (137-145) mmol/L Glucose (74-99) mg/dL POC Glucose (mg/dL) 155 H 159 H (75-99) mg/dL Calcium (8.4-10.2) mg/dL Total Protein (6.3-8.2) g/dL Albumin (3.5-5.0) g/dL Assessment and Plan Plan: Assessment 1 status post single-vessel bypass surgery and aortic valve replacement for severe aortic stenosis. The patient also had a left atrial appendage clipping. The patient is postop day #4. The mediastinal chest tube was removed yesterday. The right pleural chest tube was taken out today. 2 diabetes mellitus type 2 currently on 3 shots insulin protocol and the patient has been taking oral hypoglycemics at home 3 hypertension 4 hyperlipidemia 5 osteoarthritis 6 hypothyroidism 7 acid reflux Plan The patient will be moved out to [facility] today. If not, she can be discharged home within next 24 hours. Her pain is under good control. Blood sugars under good control. Hemodynamically stable. We'll continue to follow. His incentive spirometer.
[2017-07-12 16:42] LABS: Glucose,Whole Blood 143 mg/dL (75-99)
--- NOTE | 2017-07-12 17:02 | P.PN ---
Progress Note - Text Progress Note Date: 07/12/17 DATE OF SERVICE: 07/12/2017 PRESENTING COMPLAINT: scheduled surgery for aortic valve replacement HISTORY OF PRESENT ILLNESS: 72-year-old female status post aortic valve replacement with biprosthetic valve single vessel CABG.postoperatively patient was intubated and sedated and on critical care drips. 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 One mediastinal chest tube remains. Heart hugger in place, Amanda catheter removed. Transfers with assistance. 07/11/2017: patient lying in bed appears tired but alert and able to answer questions. Had been up in the chair for a while. No drips are on. Heart Hugger in place right mediastinal chest tube remains Amanda catheter remains Tolerating her diet, transfers with assistance, feels as though she needs to have a bowel movement.pleural chest tube removed earlier. 07/10/2017: patient sitting up in chair,tired appearing successfully extubated. Heart Hugger in place, drips include insulin and Cleviprex.right pleural/mediastinal chest tube to suction,appetite is low, barely ate 10% of her breakfast. REVIEW OF SYSTEMS: Done for constitutional ,cardiovascular, GI, pulmonary , chest wall,with relevant findings as above. CURRENT MEDICATIONS DuoNeb's, Lipitor 40 mg by mouth daily,Plavix 75 mg by mouth daily, Tapazole 10 mg by mouth daily, Lopressor 25mg by mouth twice a day,oxycodone 10 mg by mouth every 4 hours, Protonix 40 mg by mouth before meals. PHYSICAL EXAM VITAL SIGNS: temperature 98.9, pulse 93, respirations 22, blood pressure 117/56, oxygen saturation 94% on room air. GENERAL APPEARANCE: sitting up on the bedside commode more youth court judge. EYES: Pupils equal. Conjunctiva normal. NECK: JVD Unable to assess. Mass not palpable. RESPIRATORY: Respiratory effort normal. Lungs diminished to auscultation. CARDIOVASCULAR: First and second sounds normal. No edema. CHEST:a mediastinal chest tube to suction with minimal serosanguineous drainage ,no air leak present, Heart Hugger in place ABDOMEN: Soft. Liver and spleen not palpable. No tenderness. No mass palpable. PSYCHIATRY: Alert and oriented x3. Mood and affect normal. INVESTIGATIONS: White blood cell count 10.9, hemoglobin 9.5, sodium 135, potassium 5.0, Accu- Cheks noted. ASSESSMENT: -status post single-vessel coronary artery bypass and aortic valve replacement with bioprosthetic valve and left atrial appendage clipping. -Postoperative ventilator assistance as expected for respiratory support, extubated -Diabetes mellitus type 2 on insulin. -Gastroesophageal reflux disease. -Essential hypertension. -Hyperlipidemia. -Primary osteoarthritis. -Hypothyroidism PLAN: continue current medication and treatment plan, increase activity, physical therapy to follow. likely to transfer to [address] [place] [address] today.plan of care discussed with the patient at the bedside, she is in agreement. We'll follow closely SCORE CALLER statement: Patient was seen and examined by nurse practitioner Delaney Del Toro and all elements of the case discussed with attending Dr. Church
[2017-07-12] MEDS: HEPARIN SODIUM,PORCINE 5,000 UNIT/ML 1 ML VIAL SQ SCH (17:24)
[2017-07-12 20:58] LABS: Glucose,Whole Blood 185 mg/dL (75-99)
[2017-07-12] MEDS: INSULIN NPH 300 UNIT/3 ML VIAL SQ SCH (21:10)
[2017-07-12] MEDS: HYDROcodone/APAP 5-325MG 1 EACH TAB PO PRN (21:12)
[2017-07-12] MEDS: SENNOSIDES-DOCUSATE SODIUM 1 EACH TAB PO SCH (21:15)
[2017-07-13] MEDS: HEPARIN SODIUM,PORCINE 5,000 UNIT/ML 1 ML VIAL SQ SCH ×3 (02:01→16:52)
[2017-07-13] MEDS: LINAGLIPTIN 5 MG TABLET PO SCH ×2 (02:03→09:00)
[2017-07-13 02:20] LABS: Glucose,Whole Blood 118 mg/dL (75-99)
[2017-07-13 06:05] LABS: Glucose,Whole Blood 107 mg/dL (75-99)
--- NOTE | 2017-07-13 06:19 | PN ---
PROGRESS NOTE DATE OF DATE: 07/12/17. ATTENDING NOTE: Patient seen and examined by me. I discussed with nurse practitioner, Ms. Del Toro. Patient is status post aortic valve replacement and single-vessel CABG. Doing well. Eating better. Has been out of bed. PHYSICAL EXAMINATION: On examination, afebrile, pulse 25, blood pressure 117/56. INVESTIGATIONS: White count 10.8, hemoglobin 9.5, platelets 93. ASSESSMENT: Status post aortic valve replacement and single-vessel bypass. PLAN: Patient will be started back on Januvia and metformin. Also on insulin coverage. Care was discussed with the patient. Initially patient has what looks like dilutional thrombocytopenia and acute postop blood-loss anemia as expected from surgery. MMODL / IJN: [id number] /
[2017-07-13 06:27] LABS: CH 28.8; CHCM 32.1; HCT 29.3 % (34.0-46.0); HDW 2.64; HGB 9.3 gm/dL (11.4-16.0); MCH 28.5 pg (25.0-35.0); MCHC 31.6 g/dL (31.0-37.0); MCV 90.2 fL (80.0-100.0); Mean Platelet Volume 9.5; RBC 3.25 m/uL (3.80-5.40); WBC 9.2 k/uL (3.8-10.6)
[2017-07-13 06:29] LABS: Ionized Calcium 4.4 mg/dL (4.5-5.3)
[2017-07-13 06:40] LABS: ALT 37 U/L (9-52); AST 23 U/L (14-36); Alkaline Phosphatase 65 U/L (38-126); Anion Gap 6 mmol/L; Blood Urea Nitrogen 13 mg/dL (7-17); Carbon Dioxide 26 mmol/L (22-30); Chloride 104 mmol/L (98-107); Glucose 122 mg/dL (74-99); Magnesium 1.9 mg/dL (1.6-2.3); Non-African American GFR(MDRD) >60 (>60 ml/min/1.73 sqM); Potassium 4.9 mmol/L (3.5-5.1); Sodium 136 mmol/L (137-145); Total Bilirubin 0.5 mg/dL (0.2-1.3); Total Protein 5.2 g/dL (6.3-8.2)
[2017-07-13] MEDS: INSULIN LISPRO (humaLOG) 300 UNIT/3 ML VIAL SQ SCH ×5 (07:18→20:18)
[2017-07-13] MEDS: PANTOPRAZOLE 40 MG TABLET PO SCH (07:20)
[2017-07-13] MEDS: metFORMIN 500 MG TAB PO SCH ×2 (07:20→16:57)
[2017-07-13 08:12] LABS: Hemoglobin A1C 6.1 % (4.2-6.1)
[2017-07-13] MEDS ORDERED: FUROSEMIDE 10 MG/ML 2 ML VIAL IV ONE (08:29)
[2017-07-13] MEDS ORDERED: BISACODYL 10 MG SUPP RECTAL STA (08:29)
--- NOTE | 2017-07-13 08:39 | XR ---
EXAMINATION TYPE: XR chest 1V portable DATE OF EXAM: 07/13/2017 CLINICAL HISTORY: Difficulty breathing progress study. Post open cardiac surgery. TECHNIQUE: Single AP portable upright view of the chest is obtained. COMPARISON: Chest x-ray from one day earlier and older studies. FINDINGS: Sternal wires and mediastinal clips are present. There is persistent cardiomegaly with car diac metallic closure device and metallic aortic valve. There is persistent small bilateral pleural e ffusions and patchy bibasilar atelectasis and/or infiltrate. Background chronic parenchymal changes s een. Osseous structures are demineralized. Degenerative change left glenohumeral joint is redemonstra eoldia. There is interval removal of right-sided chest tube with small right apical pneumothorax estimat ed just over 5%. IMPRESSION: 1. Interval removal of right-sided chest tube with small right apical pneumothorax estimated just ove r 5%. 2. Other findings stable as there is cardiomegaly and chronic parenchymal change with bibasilar atele ctasis and/or infiltrate and small bilateral pleural effusions felt present. A Yellow message has been communicated to Eboni Moses via the [employer] Critical Result system on 07/13/2017 8:37 AM, Message ID [id number].
[2017-07-13] MEDS: MUPIROCIN 2% OINT 22 GM TUBE NASAL SCH ×2 (08:59→20:15)
[2017-07-13] MEDS: INSULN ASP PRT/INSULIN ASPART 100 UNIT/ML 10 ML VIAL SQ SCH (08:59)
[2017-07-13] MEDS: CLOPIDOGREL 75 MG TAB PO SCH (09:00)
[2017-07-13] MEDS: METHIMAZOLE 5 MG TAB PO SCH (09:00)
[2017-07-13] MEDS: ATORVASTATIN 40 MG TAB PO SCH (09:00)
[2017-07-13] MEDS: ASPIRIN 325 MG TAB PO SCH (09:00)
[2017-07-13] MEDS: METOPROLOL TARTRATE 50 MG TAB PO SCH ×2 (09:01→20:16)
--- NOTE | 2017-07-13 10:36 | P.PN ---
<Elvin Kennedy - Last Filed: 07/13/17 10:36> Subjective Progress Note Date: 07/13/17 Principal diagnosis: Severe aortic valve stenosis. Coronary artery disease. Type 2 diabetes mellitus with preoperative hemoglobin A1c 6.1%. Hyperlipidemia. Hypertension. Osteoarthritis. Hyperthyroidism. History of basal cell skin cancer. Obesity. Current tobacco dependence. Family history of heart disease. POD #4 elective aortic valve replacement using 21 mm Szymanski magna ease bioprosthetic tissue valve. Coronary artery bypass grafting 1 vessel, a reverse greater saphenous vein graft to obtuse marginal artery. Endoscopic vein harvesting right greater saphenous vein. Epi-aortic ultrasound. Intraoperative transesophageal echocardiogram. Clipping of left atrial appendage using a 35 mm Atriclip. Patient is currently sitting up to the bedside chair and is in no acute distress. Complaining of pain 7 out of 10 on the pain scale to her sternal incision. Objective - Vital Signs Vital signs: Vital Signs Temp 96.3 F L 07/13/17 00:00 Pulse 76 07/13/17 00:00 Resp 18 07/13/17 00:00 BP 120/60 07/13/17 00:00 Pulse Ox 94 L 07/13/17 00:00 Intake & Output 07/12/17 07/13/17 07/13/17 18:59 06:59 18:59 Intake Total 360 240 Output Total 1580 700 Balance -1220 -700 240 Weight 77.8 kg 79.1 kg Intake: IV 0 Lactated Ringers 1,000 ml 0 @ 20 mls/hr IV .Q24H [facility] Rx#:[id number] Oral 360 240 Output: Chest Tube Drainage 0 Right pleural 0 Drainage 130 Right Lower Calf 130 Urine 1450 700 ABP, PAP, CO, CI - Last Documented Arterial Blood Pressure 139/56 Pulmonary Artery Pressure 32/14 Cardiac Output 5 Cardiac Index 3.0 - Constitutional General appearance: Present: cooperative, no acute distress, obese - Neck Details: No JVD, no lymphadenopathy. - Respiratory Details: Lung sounds are essentially clear throughout, diminished bilateral bases. Respirations are symmetrical and nonlabored. Oxygen saturation are currently 94 % on room air. She is achieving 750 mL on her incentive spirometry. - Cardiovascular Details: Regular rhythm and rate. S1 and S2 present, negative for S3, gallop or murmur. Sternum is stable. Heart hugger is in place and she is demonstrating appropriate use. Remote telemetry showing normal sinus rhythm heart rate 98. + 2 edema to her left arm, +1 edema to her bilateral lower extremities. Knee- high MARY hose and sequential compression devices in place to her bilateral lower extremities. - Gastrointestinal Gastrointestinal Comment(s): Abdomen is soft, nontender and nondistended. Active bowel sounds all 4 abdominal quadrants. She is tolerating oral intake. No bowel movement since surgery. - Genitourinary Genitourinary Comment(s): Adequate urine output, clear yellow urine. - Integumentary Integumentary Comment(s): Midline sternal incision clean dry and well approximated. No drainage noted. Dermabond dressing clean dry and intact. Right lower extremity EVH site clean and dry and well approximated. JANI drain in place evacuating thin serosanguineous drainage. - Neurologic Neurologic Comment(s): No focal deficits. Neurologic: Present: CNII-XII intact - Musculoskeletal Musculoskeletal: Present: gait normal, strength equal bilaterally - Psychiatric Psychiatric: Present: A&O x's 3, appropriate affect, intact judgment & insight - Allied health notes Allied health notes reviewed: nursing - Labs CBC & Chem 7: 07/13/17 05:58 07/13/17 05:58 Labs: Abnormal Lab Results - Last 24 Hours (Table) 07/12/17 07/12/17 07/12/17 Range/Units 12:17 16:29 20:57 RBC (3.80-5.40) m/uL Hgb (11.4-16.0) gm/dL Hct (34.0-46.0) % Plt Count (150-450) k/uL Sodium (137-145) mmol/L Glucose (74-99) mg/dL POC Glucose (mg/dL) 159 H 143 H 185 H (75-99) mg/dL Calcium (8.4-10.2) mg/dL Total Protein (6.3-8.2) g/dL Albumin (3.5-5.0) g/dL 07/13/17 07/13/17 07/13/17 Range/Units 02:17 05:58 05:58 RBC 3.25 L (3.80-5.40) m/uL Hgb 9.3 L (11.4-16.0) gm/dL Hct 29.3 L (34.0-46.0) % Plt Count 121 L (150-450) k/uL Sodium 136 L (137-145) mmol/L Glucose 122 H (74-99) mg/dL POC Glucose (mg/dL) 118 H (75-99) mg/dL Calcium 8.0 L (8.4-10.2) mg/dL Total Protein 5.2 L (6.3-8.2) g/dL Albumin 2.8 L (3.5-5.0) g/dL 07/13/17 Range/Units 06:03 RBC (3.80-5.40) m/uL Hgb (11.4-16.0) gm/dL Hct (34.0-46.0) % Plt Count (150-450) k/uL Sodium (137-145) mmol/L Glucose (74-99) mg/dL POC Glucose (mg/dL) 107 H (75-99) mg/dL Calcium (8.4-10.2) mg/dL Total Protein (6.3-8.2) g/dL Albumin (3.5-5.0) g/dL - Imaging and Cardiology Chest x-ray: report reviewed, image reviewed Assessment and Plan (1) Family history of coronary artery disease Status: Acute (2) History of basal cell carcinoma Status: Acute (3) Hyperthyroidism Status: Acute (4) Osteoarthritis Status: Acute (5) Severe aortic stenosis Status: Acute (6) Coronary artery disease Status: Acute (7) Diabetes mellitus, type II Status: Acute (8) Hyperlipidemia Status: Acute (9) Hypertension Status: Acute (10) Obesity (BMI 30.0-34.9) Status: Acute (11) Tobacco dependence Status: Acute Plan: 1. Continue aspirin, statin, Plavix, heparin subcu, beta berta. Will maximize beta berta therapy as tolerated. 2. Encourage incentive spirometer use every hour while awake. 3. Lasix 20 mg IV 1 today. We will restart her home dose of Lasix 20 mg by mouth daily 4. Increase activity, ambulate in hallway. Physical therapy following. 5. GI for/DVT prophylaxis. 6. Will monitor daily labs, x-rays. 7. Insulin management per primary care service. 8. Dulcolax suppository 1 for complaints of constipation. 9. More recommendations as patient progresses. 10. Discharge planning in progress. Will need subacute rehab at discharge. Case management/social work consulted for insurance authorization. Possible discharge in the next 24-48 hours. Time with Patient: Greater than 30 <Nathaniel Odonnell - Last Filed: 07/13/17 10:44> Objective - Vital Signs Vital signs: Vital Signs Temp 98.0 F 07/13/17 04:00 Pulse 84 07/13/17 04:00 Resp 18 07/13/17 04:00 BP 130/62 07/13/17 04:00 Pulse Ox 95 07/13/17 04:00 Intake & Output 07/12/17 07/13/17 07/13/17 18:59 06:59 18:59 Intake Total 360 240 Output Total 9172 991 2539 Balance -1220 -800 -760 Weight 77.8 kg 79.1 kg Intake: IV 0 Lactated Ringers 1,000 ml 0 @ 20 mls/hr IV .Q24H [facility] Rx#:[id number] Oral 360 240 Output: Chest Tube Drainage 0 Right pleural 0 Drainage 130 100 Right Lower Calf 130 100 Urine 1106 005 5887 Other: Voiding Method Toilet # Voids 1 ABP, PAP, CO, CI - Last Documented Arterial Blood Pressure 139/56 Pulmonary Artery Pressure 32/14 Cardiac Output 5 Cardiac Index 3.0 - Labs CBC & Chem 7: 07/13/17 05:58 07/13/17 05:58 Labs: Abnormal Lab Results - Last 24 Hours (Table) 07/12/17 07/12/17 07/12/17 Range/Units 12:17 16:29 20:57 RBC (3.80-5.40) m/uL Hgb (11.4-16.0) gm/dL Hct (34.0-46.0) % Plt Count (150-450) k/uL Sodium (137-145) mmol/L Glucose (74-99) mg/dL POC Glucose (mg/dL) 159 H 143 H 185 H (75-99) mg/dL Calcium (8.4-10.2) mg/dL Ionized Calcium Kiarra (4.5-5.3) mg/dL Total Protein (6.3-8.2) g/dL Albumin (3.5-5.0) g/dL 07/13/17 07/13/17 07/13/17 Range/Units 02:17 05:58 05:58 RBC 3.25 L (3.80-5.40) m/uL Hgb 9.3 L (11.4-16.0) gm/dL Hct 29.3 L (34.0-46.0) % Plt Count 121 L (150-450) k/uL Sodium 136 L (137-145) mmol/L Glucose 122 H (74-99) mg/dL POC Glucose (mg/dL) 118 H (75-99) mg/dL Calcium 8.0 L (8.4-10.2) mg/dL Ionized Calcium Kiarra 4.4 L (4.5-5.3) mg/dL Total Protein 5.2 L (6.3-8.2) g/dL Albumin 2.8 L (3.5-5.0) g/dL 07/13/17 Range/Units 06:03 RBC (3.80-5.40) m/uL Hgb (11.4-16.0) gm/dL Hct (34.0-46.0) % Plt Count (150-450) k/uL Sodium (137-145) mmol/L Glucose (74-99) mg/dL POC Glucose (mg/dL) 107 H (75-99) mg/dL Calcium (8.4-10.2) mg/dL Ionized Calcium Kiarra (4.5-5.3) mg/dL Total Protein (6.3-8.2) g/dL Albumin (3.5-5.0) g/dL Assessment and Plan Plan: The patient was seen and examined. I agree with the above assessment and plan. Overall she looks good. Her chest x-ray and laboratory studies were reviewed. We will repeat a chest x-ray in the morning. We will remove her leg JANI drain today. She was given Lasix. We will increase her beta berta. She still needs a bowel movement. She has been ambulating with the assistance of physical therapy. We're awaiting insurance authorization for discharge to subacute rehab.
--- NOTE | 2017-07-13 11:19 | P.PN ---
<Noemy Sheth - Last Filed: 07/13/17 11:12> Subjective Progress Note Date: 07/13/17 Principal diagnosis: Severe aortic stenosis, status post aortic valve replacement. Coronary disease status post coronary artery bypass graft times one. This is a very pleasant 72-year-old female patient who follows with Dr. Howard Glover as her primary care physician. She has a history of diabetes mellitus, hypertension, hyperlipidemia, osteoarthritis, coronary artery disease and known severe aortic stenosis. She presented here yesterday for an elective surgery. She is now status post aortic valve replacement utilizing a 21 mm Szymanski magna ease bioprosthetic tissue valve along with coronary artery bypass grafting utilizing a saphenous vein graft to the obtuse marginal artery. This is postoperative day #1. Seen in consultation in the intensive care unit. She was successfully extubated and is maintaining good O2 saturations in the 90s on 6 L/m per nasal cannula. 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 She is on insulin drip at 2.5 units per hour. Lactated Ringer's at 50 MLS per hour. He is currently sitting up in a chair at the bedside. She is awake and alert in no acute distress. Her surgical pain is well controlled. She is working well with the incentive spirometer and cough and deep breathing exercises. X-ray does reveal small bilateral effusions and some basilar atelectasis. Right pleural and mediastinal chest tubes remain in place. [place]- E[place] catheter is been removed. Pacing wires remain in place with a VVI mode with backup at 50. The patient is seen again today 07/13/2017 in follow-up on the selective care unit. This is postoperative day #4. She is presently sitting up in the chair at the bedside. She is awake and alert in no acute distress. Her chest tubes have been removed. Today's chest x-ray revealed cardiomegaly with residual mild pulmonary vascular congestion. There is a small left pleural effusion. Focal opacity in the right midlung remains unchanged. She is maintaining good O2 saturations in the 90s on room air. Afebrile. She's been hemodynamically stable. Hemoglobin 9.3. Objective - Vital Signs Vital signs: Vital Signs Temp 97.2 F L 07/13/17 08:00 Pulse 98 07/13/17 08:00 Resp 20 07/13/17 08:00 BP 132/63 07/13/17 08:00 Pulse Ox 93 L 07/13/17 08:00 Intake & Output 07/12/17 07/13/17 07/13/17 18:59 06:59 18:59 Intake Total 360 240 Output Total 1004 230 7228 Balance -1220 -800 -760 Weight 77.8 kg 79.1 kg Intake: IV 0 Lactated Ringers 1,000 ml 0 @ 20 mls/hr IV .Q24H [facility] Rx#:[id number] Oral 360 240 Output: Chest Tube Drainage 0 Right pleural 0 Drainage 130 100 Right Lower Calf 130 100 Urine 7201 978 8375 Other: Voiding Method Toilet # Voids 1 ABP, PAP, CO, CI - Last Documented Arterial Blood Pressure 139/56 Pulmonary Artery Pressure 32/14 Cardiac Output 5 Cardiac Index 3.0 - Exam GENERAL EXAM: Alert, active, comfortable in no apparent distress. HEAD: Normocephalic. EYES: Normal reaction of pupils, equal size. NOSE: Clear with pink turbinates. THROAT: No erythema or exudates. NECK: No masses, no JVD. CHEST: Sternal dressing dry and intact. LUNGS: Equal air entry with crackles in the posterior bases. CVS: S1 and S2 normal with no audible murmurs, regular rhythm. ABDOMEN: No hepatosplenomegaly, hypoactive bowel sounds, no guarding or rigidity. SPINE: No scoliosis or deformity SKIN: No rashes CENTRAL NERVOUS SYSTEM: No focal deficits, tone is normal in all 4 extremities. Extremities: There is trace peripheral edema. No clubbing, no cyanosis. Peripheral pulses are intact. - Labs CBC & Chem 7: 07/13/17 05:58 07/13/17 05:58 Labs: Abnormal Lab Results - Last 24 Hours (Table) 07/12/17 07/12/17 07/12/17 Range/Units 12:17 16:29 20:57 RBC (3.80-5.40) m/uL Hgb (11.4-16.0) gm/dL Hct (34.0-46.0) % Plt Count (150-450) k/uL Sodium (137-145) mmol/L Glucose (74-99) mg/dL POC Glucose (mg/dL) 159 H 143 H 185 H (75-99) mg/dL Calcium (8.4-10.2) mg/dL Ionized Calcium Kiarra (4.5-5.3) mg/dL Total Protein (6.3-8.2) g/dL Albumin (3.5-5.0) g/dL 07/13/17 07/13/17 07/13/17 Range/Units 02:17 05:58 05:58 RBC 3.25 L (3.80-5.40) m/uL Hgb 9.3 L (11.4-16.0) gm/dL Hct 29.3 L (34.0-46.0) % Plt Count 121 L (150-450) k/uL Sodium 136 L (137-145) mmol/L Glucose 122 H (74-99) mg/dL POC Glucose (mg/dL) 118 H (75-99) mg/dL Calcium 8.0 L (8.4-10.2) mg/dL Ionized Calcium Kiarra 4.4 L (4.5-5.3) mg/dL Total Protein 5.2 L (6.3-8.2) g/dL Albumin 2.8 L (3.5-5.0) g/dL 07/13/17 Range/Units 06:03 RBC (3.80-5.40) m/uL Hgb (11.4-16.0) gm/dL Hct (34.0-46.0) % Plt Count (150-450) k/uL Sodium (137-145) mmol/L Glucose (74-99) mg/dL POC Glucose (mg/dL) 107 H (75-99) mg/dL Calcium (8.4-10.2) mg/dL Ionized Calcium Kiarra (4.5-5.3) mg/dL Total Protein (6.3-8.2) g/dL Albumin (3.5-5.0) g/dL Assessment and Plan Plan: Impression: #1 Severe aortic stenosis status post aortic valve replacement utilizing a 21 mm Szymanski magna ease bioprosthetic tissue valve. Postoperative day #4. #2 Coronary artery disease status post coronary artery bypass grafting utilizing a saphenous vein graft to the obtuse marginal branch. Postoperative day #4. #3 Diabetes mellitus. #4 Hyperlipidemia. #5 Hypertension. #6 Osteoarthritis. #7 History of basal cell carcinoma. #8 Chronic and ongoing tobacco dependence. Plan: The patient was seen and evaluated by Dr. Abbasi. Her chest x-ray and labs were reviewed. She is currently stable from the pulmonary and critical care standpoint. She is encouraged again regarding the increased use of the incentive spirometer and cough and deep breathing exercises. She is again encouraged regarding the importance of complete smoking cessation. We'll continue with bronchodilators. She remains on heparin subcutaneous for DVT prophylaxis. Protonix for GI prophylaxis. We will increase her activity as tolerated. The plan is for transfer to an extended care facility for continued inpatient rehabilitation. I performed a history and physical examination on the patient. Lung sounds are clear anteriorly with some faint crackles in the posterior bases. Diminished. I discussed the assessment and plan of care with my nurse practitioner, Noemy Sheth. I agree with the above note as dictated. <Ruby Abbasi - Last Filed: 07/13/17 12:06> Objective - Vital Signs Vital signs: Vital Signs Temp 96.5 F L 07/13/17 11:51 Pulse 67 07/13/17 11:51 Resp 20 07/13/17 11:51 BP 108/55 07/13/17 11:51 Pulse Ox 100 07/13/17 11:51 Intake & Output 07/12/17 07/13/17 07/13/17 18:59 06:59 18:59 Intake Total 360 240 Output Total 1733 522 4330 Balance -1220 -800 -760 Weight 77.8 kg 79.1 kg Intake: IV 0 Lactated Ringers 1,000 ml 0 @ 20 mls/hr IV .Q24H [facility] Rx#:[id number] Oral 360 240 Output: Chest Tube Drainage 0 Right pleural 0 Drainage 130 100 Right Lower Calf 130 100 Urine 5827 250 1546 Other: Voiding Method Toilet # Voids 1 ABP, PAP, CO, CI - Last Documented Arterial Blood Pressure 139/56 Pulmonary Artery Pressure 32/14 Cardiac Output 5 Cardiac Index 3.0 - Labs CBC & Chem 7: 07/13/17 05:58 07/13/17 05:58 Labs: Abnormal Lab Results - Last 24 Hours (Table) 07/12/17 07/12/17 07/12/17 Range/Units 12:17 16:29 20:57 RBC (3.80-5.40) m/uL Hgb (11.4-16.0) gm/dL Hct (34.0-46.0) % Plt Count (150-450) k/uL Sodium (137-145) mmol/L Glucose (74-99) mg/dL POC Glucose (mg/dL) 159 H 143 H 185 H (75-99) mg/dL Calcium (8.4-10.2) mg/dL Ionized Calcium Kiarra (4.5-5.3) mg/dL Total Protein (6.3-8.2) g/dL Albumin (3.5-5.0) g/dL 07/13/17 07/13/17 07/13/17 Range/Units 02:17 05:58 05:58 RBC 3.25 L (3.80-5.40) m/uL Hgb 9.3 L (11.4-16.0) gm/dL Hct 29.3 L (34.0-46.0) % Plt Count 121 L (150-450) k/uL Sodium 136 L (137-145) mmol/L Glucose 122 H (74-99) mg/dL POC Glucose (mg/dL) 118 H (75-99) mg/dL Calcium 8.0 L (8.4-10.2) mg/dL Ionized Calcium Kiarra 4.4 L (4.5-5.3) mg/dL Total Protein 5.2 L (6.3-8.2) g/dL Albumin 2.8 L (3.5-5.0) g/dL 07/13/17 07/13/17 Range/Units 06:03 11:38 RBC (3.80-5.40) m/uL Hgb (11.4-16.0) gm/dL Hct (34.0-46.0) % Plt Count (150-450) k/uL Sodium (137-145) mmol/L Glucose (74-99) mg/dL POC Glucose (mg/dL) 107 H 178 H (75-99) mg/dL Calcium (8.4-10.2) mg/dL Ionized Calcium Kiarra (4.5-5.3) mg/dL Total Protein (6.3-8.2) g/dL Albumin (3.5-5.0) g/dL Assessment and Plan Plan: On this joint evaluation that was done with the nurse practitioner, the patient is being seen in the follow-up. She is postop day #5. She is doing extremely well. She has no specific complaints. All of the wounds are dry clean and intact. Examination are being made to transfer this patient to [facility]. Please refer to the information given by Noemy Gaines NP. No other additions from my standpoint.
[2017-07-13 11:41] LABS: Glucose,Whole Blood 178 mg/dL (75-99)
[2017-07-13] MEDS: CHOLECALCIFEROL 1,000 UNIT TAB PO SCH (12:12)
[2017-07-13] MEDS: MULTIVITAMINS, THERA 1 EACH TAB PO SCH (12:12)
--- NOTE | 2017-07-13 13:55 | P.PN ---
Progress Note - Text Progress Note Date: 07/13/17 DATE OF SERVICE: 07/13/2017 PRESENTING COMPLAINT: scheduled surgery for aortic valve replacement HISTORY OF PRESENT ILLNESS: 72-year-old female status post aortic valve replacement with biprosthetic valve single vessel CABG.postoperatively patient was intubated and sedated and on critical care drips. INTERVAL HISTORY: 07/13/2017: Patient seen in follow-up, Patient sitting up in a chair at the bedside and 6 E. very potash flaker and conversational. She's participating in her care, one mediastinal chest tube remains. Heart hugger in place, transfers with assistance ambulatory with assistance. No BM today, passing flatus, appetite good eating between 50 and 80% of her breakfast. 07/12/2017: Patient sitting up on the bedside commode more potash flaker today answering questions and participating in her care. One mediastinal chest tube remains. Heart hugger in place, Amanda catheter removed. Transfers with assistance. 07/11/2017: patient lying in bed appears tired but alert and able to answer questions. Had been up in the chair for a while. No drips are on. Heart Hugger in place right mediastinal chest tube remains Amanda catheter remains Tolerating her diet, transfers with assistance, feels as though she needs to have a bowel movement.pleural chest tube removed earlier. 07/10/2017: patient sitting up in chair,tired appearing successfully extubated. Heart Hugger in place, drips include insulin and Cleviprex.right pleural/mediastinal chest tube to suction,appetite is low, barely ate 10% of her breakfast. REVIEW OF SYSTEMS: Done for constitutional ,cardiovascular, GI, pulmonary , chest wall,with relevant findings as above. CURRENT MEDICATIONS DuoNeb's, Lipitor 40 mg by mouth daily,Plavix 75 mg by mouth daily, Tapazole 10 mg by mouth daily, Lopressor 25mg by mouth twice a day,oxycodone 10 mg by mouth every 4 hours, Protonix 40 mg by mouth before meals, NovoLog mix 70-30, 32 units , lispro 8 units,Linagliptin 5 mg by mouth daily. PHYSICAL EXAM VITAL SIGNS: temperature 98.9, pulse 93, respirations 22, blood pressure 117/56, oxygen saturation 94% on room air. GENERAL APPEARANCE: sitting up on the bedside commode more potash flaker. EYES: Pupils equal. Conjunctiva normal. NECK: JVD Unable to assess. Mass not palpable. RESPIRATORY: Respiratory effort normal. Lungs diminished to auscultation. CARDIOVASCULAR: First and second sounds normal. No edema. CHEST:a mediastinal chest tube to suction with minimal serosanguineous drainage ,no air leak present, Heart Hugger in place ABDOMEN: Soft. Liver and spleen not palpable. No tenderness. No mass palpable. PSYCHIATRY: Alert and oriented x3. Mood and affect normal. INVESTIGATIONS: White blood cell count 10.9, hemoglobin 9.5, sodium 135, potassium 5.0, Accu- Cheks noted. ASSESSMENT: -status post single-vessel coronary artery bypass and aortic valve replacement with bioprosthetic valve and left atrial appendage clipping. -Acute blood loss anemia as expected from surgery -Postoperative ventilator assistance as expected for respiratory support, extubated -Diabetes mellitus type 2 on insulin. -Gastroesophageal reflux disease. -Essential hypertension. -Hyperlipidemia. -Primary osteoarthritis. -Hypothyroidism PLAN: Hemoglobin has remained stable, continue current medication and treatment plan, increase activity, physical therapy to follow. Adjustments made insulin. Plan of care discussed with the patient at the bedside she is in agreement. We'll follow closely. CARRY IN WORKER statement: Patient was seen and examined by nurse practitioner Delaney Del Toro and all elements of the case discussed with attending Dr. Church
--- NOTE | 2017-07-13 15:53 | P.PN ---
Subjective Progress Note Date: 07/13/17 Principal diagnosis: Status post aortic valve replacement and coronary artery bypass grafting surgery times one This is a 72-year-old female who is status post aortic valve replacement for severe aortic stenosis as well as 1 vessel bypass grafting surgery. She was seen and examined this morning sitting up in her chair at bedside. Reaching 1000 on her incentive spirometry. Objective - Vital Signs Vital signs: Vital Signs Temp 98.1 F 07/13/17 15:47 Pulse 92 07/13/17 15:47 Resp 20 07/13/17 15:47 BP 122/57 07/13/17 15:47 Pulse Ox 99 07/13/17 15:47 Intake & Output 07/12/17 07/13/17 07/13/17 18:59 06:59 18:59 Intake Total 360 600 Output Total 4905 647 1692 Balance -1220 -800 -1600 Weight 77.8 kg 79.1 kg Intake: IV 0 Lactated Ringers 1,000 ml 0 @ 20 mls/hr IV .Q24H [facility] Rx#:[id number] Oral 360 600 Output: Chest Tube Drainage 0 Right pleural 0 Drainage 130 100 Right Lower Calf 130 100 Urine 2896 476 0185 Other: Voiding Method Toilet # Voids 1 ABP, PAP, CO, CI - Last Documented Arterial Blood Pressure 139/56 Pulmonary Artery Pressure 32/14 Cardiac Output 5 Cardiac Index 3.0 - Exam PHYSICAL EXAMINATION: HEENT: Head is atraumatic, normocephalic. Pupils equal, round. Neck is supple. There is no elevated jugular venous pressure. HEART EXAMINATION: Heart S1, S2 normal. No murmur or gallop heard. CHEST EXAMINATION: His reveal diminished air entry to bilateral bases with fine crackles to the bases. ABDOMEN: Soft, nontender. Bowel sounds are heard. No organomegaly noted. EXTREMITIES:[ 2+ peripheral pulses with 1+ evidence of peripheral edema and no calf tenderness noted]. NEUROLOGIC [patient is awake, alert and oriented -3.] . - Labs CBC & Chem 7: 07/13/17 05:58 07/13/17 05:58 Labs: Abnormal Lab Results - Last 24 Hours (Table) 07/12/17 07/12/17 07/13/17 Range/Units 16:29 20:57 02:17 RBC (3.80-5.40) m/uL Hgb (11.4-16.0) gm/dL Hct (34.0-46.0) % Plt Count (150-450) k/uL Sodium (137-145) mmol/L Glucose (74-99) mg/dL POC Glucose (mg/dL) 143 H 185 H 118 H (75-99) mg/dL Calcium (8.4-10.2) mg/dL Ionized Calcium Kiarra (4.5-5.3) mg/dL Total Protein (6.3-8.2) g/dL Albumin (3.5-5.0) g/dL 07/13/17 07/13/17 07/13/17 Range/Units 05:58 05:58 06:03 RBC 3.25 L (3.80-5.40) m/uL Hgb 9.3 L (11.4-16.0) gm/dL Hct 29.3 L (34.0-46.0) % Plt Count 121 L (150-450) k/uL Sodium 136 L (137-145) mmol/L Glucose 122 H (74-99) mg/dL POC Glucose (mg/dL) 107 H (75-99) mg/dL Calcium 8.0 L (8.4-10.2) mg/dL Ionized Calcium Kiarra 4.4 L (4.5-5.3) mg/dL Total Protein 5.2 L (6.3-8.2) g/dL Albumin 2.8 L (3.5-5.0) g/dL 07/13/17 Range/Units 11:38 RBC (3.80-5.40) m/uL Hgb (11.4-16.0) gm/dL Hct (34.0-46.0) % Plt Count (150-450) k/uL Sodium (137-145) mmol/L Glucose (74-99) mg/dL POC Glucose (mg/dL) 178 H (75-99) mg/dL Calcium (8.4-10.2) mg/dL Ionized Calcium Kiarra (4.5-5.3) mg/dL Total Protein (6.3-8.2) g/dL Albumin (3.5-5.0) g/dL Assessment and Plan Plan: Assessment and plan 1 status post single-vessel bypass grafting surgery and aortic valve replacement #2 hypertension #3 hyperlipidemia Plan From cardiology's perspective, we'll continue patient on her current medications. DNP note has been reviewed, I agree with a documented findings and plan of care. Patient was seen and examined.
[2017-07-13 16:28] LABS: Glucose,Whole Blood 122 mg/dL (75-99)
[2017-07-13] MEDS: SENNOSIDES-DOCUSATE SODIUM 1 EACH TAB PO SCH (20:17)
[2017-07-13] MEDS: INSULIN NPH 300 UNIT/3 ML VIAL SQ SCH (20:17)
[2017-07-13] MEDS: HYDROcodone/APAP 5-325MG 1 EACH TAB PO PRN (20:23)
[2017-07-13 20:29] LABS: Glucose,Whole Blood 73 mg/dL (75-99)
--- NOTE | 2017-07-13 22:34 | PN ---
PROGRESS NOTE DATE OF SERVICE: 07/13/2017. ATTENDING NOTE: Patient seen and examined by me. I discussed with my nurse practitioner, Christiemisha. The patient is status post CABG, out of bed, has been moved to the selective care floor. Oral hyperglycemics were started yesterday, eating rather well. Breathing is much improved. EXAMINATION: Afebrile, blood pressure 108/55, pulse ox 100% on room air. LUNGS: Decreased breath sounds. CARDIOVASCULAR: 1st and 2nd sounds normal. INVESTIGATIONS: White count 9.2, potassium 4.9. Accu-Cheks noted. ASSESSMENT: 1. Status post single-vessel coronary artery bypass graft and aortic valve replacement bioprosthetic valve. 2. Diabetes mellitus type 2. PLAN: The patient's insulin will be discontinued. Will add also the patient's , have to be careful; otherwise, sugar might drop. Discussed with Eboni from cardiothoracic. Otherwise, the patient doing rather well. MMODL / IJN: [id number] /
[2017-07-14 03:08] LABS: Glucose,Whole Blood 81 mg/dL (75-99)
[2017-07-14 06:21] LABS: Glucose,Whole Blood 105 mg/dL (75-99)
[2017-07-14] MEDS: GLIMEPIRIDE 4 MG TAB PO SCH ×2 (06:38→07:57)
--- NOTE | 2017-07-14 07:20 | XR ---
EXAMINATION TYPE: XR chest 2V DATE OF EXAM: 07/14/2017 COMPARISON: 07/13/2017 HISTORY: 72-year-old female status post CABG, aortic valve replacement TECHNIQUE: Frontal and lateral views FINDINGS: The heart remains mildly enlarged. Median sternotomy wires are present with post-CABG clips and prost hetic aortic valve. Small left greater than right pleural effusions persist. Improving aeration at th e right lung base. A small right apical pneumothorax is stable to minimally smaller. IMPRESSION: 1. Improving aeration at the right base but otherwise similar mild cardiomegaly with small left great er than right pleural effusions. 2. Adjacent left basilar atelectasis and/or consolidation persists. 3. Small right apical pneumothorax is stable to slightly smaller in size.
[2017-07-14 07:41] LABS: CH 28.3; CHCM 31.3; HCT 28.8 % (34.0-46.0); HDW 2.67; HGB 9.2 gm/dL (11.4-16.0); Hypochromasia Slight; MCH 28.9 pg (25.0-35.0); MCHC 31.9 g/dL (31.0-37.0); MCV 90.6 fL (80.0-100.0); Mean Platelet Volume 9.2; RBC 3.18 m/uL (3.80-5.40); RDW 14.7 % (11.5-15.5)
[2017-07-14] MEDS: INSULIN LISPRO (humaLOG) 300 UNIT/3 ML VIAL SQ SCH ×4 (07:56→21:54)
[2017-07-14] MEDS: metFORMIN 500 MG TAB PO SCH ×2 (07:56→17:17)
[2017-07-14] MEDS: HEPARIN SODIUM,PORCINE 5,000 UNIT/ML 1 ML VIAL SQ SCH ×3 (07:57→17:17)
[2017-07-14] MEDS: HYDROcodone/APAP 5-325MG 1 EACH TAB PO PRN ×2 (07:58→15:23)
[2017-07-14] MEDS: PANTOPRAZOLE 40 MG TABLET PO SCH (07:58)
[2017-07-14 07:59] LABS: Ionized Calcium 4.6 mg/dL (4.5-5.3)
[2017-07-14 08:19] LABS: ALT 32 U/L (9-52); AST 32 U/L (14-36); Alkaline Phosphatase 67 U/L (38-126); Anion Gap 8 mmol/L; Blood Urea Nitrogen 17 mg/dL (7-17); Calcium 7.8 mg/dL (8.4-10.2); Carbon Dioxide 26 mmol/L (22-30); Chloride 101 mmol/L (98-107); Glucose 92 mg/dL (74-99); Magnesium 1.6 mg/dL (1.6-2.3); Non-African American GFR(MDRD) >60 (>60 ml/min/1.73 sqM); Potassium 5.3 mmol/L (3.5-5.1); Sodium 135 mmol/L (137-145); Total Bilirubin 0.5 mg/dL (0.2-1.3); Total Protein 5.4 g/dL (6.3-8.2)
[2017-07-14] MEDS ORDERED: DEXTROSE 5% IN WATER 100 ML with AMIODARONE 150 MG IV ONE (08:45)
--- NOTE | 2017-07-14 08:50 | P.PN ---
Subjective Progress Note Date: 07/14/17 Principal diagnosis: Severe aortic valve stenosis. Coronary artery disease. Type 2 diabetes mellitus with preoperative hemoglobin A1c 6.1%. Hyperlipidemia. Hypertension. Osteoarthritis. Hyperthyroidism. History of basal cell skin cancer. Obesity. Current tobacco dependence. Family history of heart disease. POD #5 elective aortic valve replacement using 21 mm Szymanski magna ease bioprosthetic tissue valve. Coronary artery bypass grafting 1 vessel, a reverse greater saphenous vein graft to obtuse marginal artery. Endoscopic vein harvesting right greater saphenous vein. Epi-aortic ultrasound. Intraoperative transesophageal echocardiogram. Clipping of left atrial appendage using a 35 mm Atriclip. Patient is currently sitting up to the bedside chair and is in no acute distress. Complaining of pain 5 out of 10 on the pain scale to her sternal incision. She reports she feels better today than yesterday. Objective - Vital Signs Vital signs: Vital Signs Temp 97.9 F 07/14/17 04:00 Pulse 90 07/14/17 04:00 Resp 18 07/14/17 04:00 BP 126/58 07/14/17 04:00 Pulse Ox 95 07/14/17 04:00 Intake & Output 07/13/17 07/14/17 07/14/17 18:59 06:59 18:59 Intake Total 840 Output Total 2700 750 Balance -1860 -750 Weight 79.4 kg Intake: Oral 840 Output: Urine 2700 750 Other: Voiding Method Toilet # Voids 1 1 # Bowel Movements 1 ABP, PAP, CO, CI - Last Documented Arterial Blood Pressure 139/56 Pulmonary Artery Pressure 32/14 Cardiac Output 5 Cardiac Index 3.0 - Constitutional General appearance: Present: cooperative, no acute distress, obese - EENT Eyes: Present: PERRLA ENT: Present: hearing grossly normal - Neck Details: No JVD, no lymphadenopathy. - Respiratory Details: Lung sounds are essentially clear throughout, diminished to her bilateral bases. Respirations are symmetrical and nonlabored. Oxygen saturation are 95% on room air. She is achieving 750 mL on her incentive spirometry. - Cardiovascular Details: Regular rhythm and rate. S1 and S2 present, negative for S3, gallop or murmur. Sternum is stable. Heart hugger is in place and she is demonstrating appropriate use. Remote telemetry showing atrial fibrillation heart rate 97. + 1 edema to her bilateral lower extremities. Knee-high MARY hose and sequential compression devices in place to her bilateral lower extremities. - Gastrointestinal Gastrointestinal Comment(s): Abdomen soft, nontender and nondistended. Active bowel sounds all 4 abdominal quadrants. Bowel movement yesterday 07/13/2017. - Genitourinary Genitourinary Comment(s): Adequate urine output. Clear yellow urine. - Integumentary Integumentary Comment(s): Midline sternal incision clean dry and well approximated. No drainage noted. Dermabond dressing clean dry and intact. Right lower extremity EVH site clean and dry and well approximated. Old JANI drain site draining thin serous drainage. - Neurologic Neurologic Comment(s): No focal deficits. Neurologic: Present: CNII-XII intact - Musculoskeletal Musculoskeletal: Present: gait normal, strength equal bilaterally - Psychiatric Psychiatric: Present: A&O x's 3, appropriate affect, intact judgment & insight - Allied health notes Allied health notes reviewed: nursing - Labs CBC & Chem 7: 07/14/17 06:29 07/14/17 06:29 Labs: Abnormal Lab Results - Last 24 Hours (Table) 07/13/17 07/13/17 07/13/17 Range/Units 05:58 11:38 16:25 RBC (3.80-5.40) m/uL Hgb (11.4-16.0) gm/dL Hct (34.0-46.0) % Sodium (137-145) mmol/L Potassium (3.5-5.1) mmol/L POC Glucose (mg/dL) 178 H 122 H (75-99) mg/dL Calcium (8.4-10.2) mg/dL Ionized Calcium Kiarra 4.4 L (4.5-5.3) mg/dL Total Protein (6.3-8.2) g/dL Albumin (3.5-5.0) g/dL 07/13/17 07/14/17 07/14/17 Range/Units 20:18 06:13 06:29 RBC 3.18 L (3.80-5.40) m/uL Hgb 9.2 L (11.4-16.0) gm/dL Hct 28.8 L (34.0-46.0) % Sodium (137-145) mmol/L Potassium (3.5-5.1) mmol/L POC Glucose (mg/dL) 73 L 105 H (75-99) mg/dL Calcium (8.4-10.2) mg/dL Ionized Calcium Kiarra (4.5-5.3) mg/dL Total Protein (6.3-8.2) g/dL Albumin (3.5-5.0) g/dL 07/14/17 Range/Units 06:29 RBC (3.80-5.40) m/uL Hgb (11.4-16.0) gm/dL Hct (34.0-46.0) % Sodium 135 L (137-145) mmol/L Potassium 5.3 H (3.5-5.1) mmol/L POC Glucose (mg/dL) (75-99) mg/dL Calcium 7.8 L (8.4-10.2) mg/dL Ionized Calcium Kiarra (4.5-5.3) mg/dL Total Protein 5.4 L (6.3-8.2) g/dL Albumin 2.8 L (3.5-5.0) g/dL - Imaging and Cardiology Chest x-ray: report reviewed, image reviewed (Small 5% right apical pneumothorax.) Assessment and Plan (1) Family history of coronary artery disease Status: Acute (2) History of basal cell carcinoma Status: Acute (3) Hyperthyroidism Status: Acute (4) Osteoarthritis Status: Acute (5) Severe aortic stenosis Status: Acute (6) Coronary artery disease Status: Acute (7) Diabetes mellitus, type II Status: Acute (8) Hyperlipidemia Status: Acute (9) Hypertension Status: Acute (10) Obesity (BMI 30.0-34.9) Status: Acute (11) Tobacco dependence Status: Acute Plan: 1. Continue aspirin, statin, Plavix, heparin subcu, beta berta. Will maximize beta berta therapy as tolerated. 2. Encourage incentive spirometer use every hour while awake. 3. Amiodarone protocol initiated for atrial fibrillation. Amiodarone 150 mg IV piggyback bolus followed by amiodarone drip started at 1 mg/m. 4. Increase activity, ambulate in hallway. Physical therapy following. 5. GI for/DVT prophylaxis. 6. Will monitor daily labs, x-rays. 7. Insulin management per primary care service. 8. More recommendations as patient progresses. 9. Discharge planning in progress. Will need subacute rehab at discharge. Case management/social work consulted awaiting insurance authorization. Possible discharge in the next 24-48 hours. Time with Patient: Greater than 30
[2017-07-14] MEDS ORDERED: FUROSEMIDE 10 MG/ML 2 ML VIAL IV ONE (09:00)
[2017-07-14] MEDS ORDERED: FUROSEMIDE 20 MG TAB PO SCH (09:00)
[2017-07-14] MEDS: ASPIRIN 325 MG TAB PO SCH (09:36)
[2017-07-14] MEDS: CLOPIDOGREL 75 MG TAB PO SCH (09:38)
[2017-07-14] MEDS: ATORVASTATIN 40 MG TAB PO SCH (09:38)
[2017-07-14] MEDS: METOPROLOL TARTRATE 50 MG TAB PO SCH ×3 (09:41→21:54)
[2017-07-14] MEDS: METHIMAZOLE 5 MG TAB PO SCH (09:41)
[2017-07-14] MEDS: MUPIROCIN 2% OINT 22 GM TUBE NASAL SCH ×2 (09:42→21:54)
[2017-07-14] MEDS: AMIODARONE 450 MG in DEXTROSE 5% IN WATER 250 ML IV SCH ×4 (10:29→19:22)
--- NOTE | 2017-07-14 10:54 | P.PN ---
<Noemy Sheth - Last Filed: 07/14/17 10:47> Subjective Progress Note Date: 07/14/17 Principal diagnosis: Severe aortic stenosis, status post aortic valve replacement. Coronary disease status post coronary artery bypass graft times one. This is a very pleasant 72-year-old female patient who follows with Dr. Howard Glover as her primary care physician. She has a history of diabetes mellitus, hypertension, hyperlipidemia, osteoarthritis, coronary artery disease and known severe aortic stenosis. She presented here yesterday for an elective surgery. She is now status post aortic valve replacement utilizing a 21 mm Szymanski magna ease bioprosthetic tissue valve along with coronary artery bypass grafting utilizing a saphenous vein graft to the obtuse marginal artery. This is postoperative day #1. Seen in consultation in the intensive care unit. She was successfully extubated and is maintaining good O2 saturations in the 90s on 6 L/m per nasal cannula. She remains title i instructional assistant for approximate 5 mg per hour. She is on insulin drip at 2.5 units per hour. Lactated Ringer's at 50 MLS per hour. He is currently sitting up in a chair at the bedside. She is awake and alert in no acute distress. Her surgical pain is well controlled. She is working well with the incentive spirometer and cough and deep breathing exercises. X-ray does reveal small bilateral effusions and some basilar atelectasis. Right pleural and mediastinal chest tubes remain in place. [place]- Eriberto catheter is been removed. Pacing wires remain in place with a VVI mode with backup at 50. The patient is seen again today 07/13/2017 in follow-up on the selective care unit. This is postoperative day #4. She is presently sitting up in the chair at the bedside. She is awake and alert in no acute distress. Her chest tubes have been removed. Today's chest x-ray revealed cardiomegaly with residual mild pulmonary vascular congestion. There is a small left pleural effusion. Focal opacity in the right midlung remains unchanged. She is maintaining good O2 saturations in the 90s on room air. Afebrile. She's been hemodynamically stable. Hemoglobin 9.3. Patient is seen again today 07/14/2017 in follow-up on the selective care unit. This is postoperative day #5. She is currently sitting up in a chair at the bedside. She is awake and alert in no acute distress. Today's chest x-ray reveals improved aeration of the right base. There is still some atelectasis in the left lung base. Small bilateral pleural effusions left greater than right. Small right apical pneumothorax is stable. She denies any worsening shortness of breath, cough or congestion. She is maintaining good O2 saturations in the mid upper 90s on room air. She remains afebrile. No leukocytosis. Hemoglobin 9.2. She did have some issues with hypoglycemia and intermittent atrial fibrillation with varying ventricular response. Cardiology is on the case as well. Objective - Vital Signs Vital signs: Vital Signs Temp 97.9 F 07/14/17 04:00 Pulse 90 07/14/17 04:00 Resp 18 07/14/17 04:00 BP 126/58 07/14/17 04:00 Pulse Ox 95 07/14/17 04:00 Intake & Output 07/13/17 07/14/17 07/14/17 18:59 06:59 18:59 Intake Total 840 180 Output Total 2700 750 Balance -1860 -750 180 Weight 79.4 kg Intake: Oral 840 180 Output: Urine 2700 750 Other: Voiding Method Toilet # Voids 1 1 # Bowel Movements 1 ABP, PAP, CO, CI - Last Documented Arterial Blood Pressure 139/56 Pulmonary Artery Pressure 32/14 Cardiac Output 5 Cardiac Index 3.0 - Exam GENERAL EXAM: Alert, active, comfortable in no apparent distress. HEAD: Normocephalic. EYES: Normal reaction of pupils, equal size. NOSE: Clear with pink turbinates. THROAT: No erythema or exudates. NECK: No masses, no JVD. CHEST: Sternal dressing dry and intact. LUNGS: Equal air entry with crackles in the posterior bases. CVS: S1 and S2 normal with no audible murmurs, irregular rhythm. ABDOMEN: No hepatosplenomegaly, hypoactive bowel sounds, no guarding or rigidity. SPINE: No scoliosis or deformity SKIN: No rashes CENTRAL NERVOUS SYSTEM: No focal deficits, tone is normal in all 4 extremities. Extremities: There is trace peripheral edema. No clubbing, no cyanosis. Peripheral pulses are intact. - Labs CBC & Chem 7: 07/14/17 06:29 07/14/17 06:29 Labs: Abnormal Lab Results - Last 24 Hours (Table) 1007/13/17 07/13/17 Range/Units 11:38 16:25 20:18 RBC (3.80-5.40) m/uL Hgb (11.4-16.0) gm/dL Hct (34.0-46.0) % Sodium (137-145) mmol/L Potassium (3.5-5.1) mmol/L POC Glucose (mg/dL) 178 H 122 H 73 L (75-99) mg/dL Calcium (8.4-10.2) mg/dL Total Protein (6.3-8.2) g/dL Albumin (3.5-5.0) g/dL 07/14/17 07/14/17 07/14/17 Range/Units 06:13 06:29 06:29 RBC 3.18 L (3.80-5.40) m/uL Hgb 9.2 L (11.4-16.0) gm/dL Hct 28.8 L (34.0-46.0) % Sodium 135 L (137-145) mmol/L Potassium 5.3 H (3.5-5.1) mmol/L POC Glucose (mg/dL) 105 H (75-99) mg/dL Calcium 7.8 L (8.4-10.2) mg/dL Total Protein 5.4 L (6.3-8.2) g/dL Albumin 2.8 L (3.5-5.0) g/dL Assessment and Plan Plan: Impression: #1 Severe aortic stenosis status post aortic valve replacement utilizing a 21 mm Szymanski magna ease bioprosthetic tissue valve. Postoperative day #5. #2 Coronary artery disease status post coronary artery bypass grafting utilizing a saphenous vein graft to the obtuse marginal branch. Postoperative day #5. #3 Diabetes mellitus with episodes of hypoglycemia. #4 Hyperlipidemia. #5 Hypertension. #6 Osteoarthritis. #7 History of basal cell carcinoma. #8 Chronic and ongoing tobacco dependence. #9 New-onset atrial fibrillation #10 Anemia, current hemoglobin 9.2. Plan: The patient was seen and evaluated by Dr. Abbasi. Her chest x-ray and labs were reviewed. She is currently stable from the pulmonary standpoint. She is encouraged again regarding the increased use of the incentive spirometer and cough and deep breathing exercises. She is again encouraged regarding the importance of complete smoking cessation. We'll continue with bronchodilators. She remains on heparin subcutaneous for DVT prophylaxis. Protonix for GI prophylaxis. Cardiology is on the case regarding the atrial fibrillation. The plan is for transfer to an extended care facility for continued inpatient rehabilitation once cleared medically. I performed a history and physical examination on the patient. Lung sounds are clear anteriorly with some faint crackles in the posterior bases, more so on the left. I discussed the assessment and plan of care with my nurse practitioner , Noemy Sheth. I agree with the above note as dictated. <Ruby Abbasi - Last Filed: 07/14/17 11:23> Objective - Vital Signs Vital signs: Vital Signs Temp 97.9 F 07/14/17 04:00 Pulse 90 07/14/17 04:00 Resp 18 07/14/17 04:00 BP 126/58 07/14/17 04:00 Pulse Ox 95 07/14/17 04:00 Intake & Output 07/13/17 07/14/17 07/14/17 18:59 06:59 18:59 Intake Total 840 180 Output Total 2700 750 Balance -1860 -750 180 Weight 79.4 kg Intake: Oral 840 180 Output: Urine 2700 750 Other: Voiding Method Toilet # Voids 1 1 # Bowel Movements 1 ABP, PAP, CO, CI - Last Documented Arterial Blood Pressure 139/56 Pulmonary Artery Pressure 32/14 Cardiac Output 5 Cardiac Index 3.0 - Labs CBC & Chem 7: 07/14/17 06:29 07/14/17 06:29 Labs: Abnormal Lab Results - Last 24 Hours (Table) 07/13/17 07/13/17 07/13/17 Range/Units 11:38 16:25 20:18 RBC (3.80-5.40) m/uL Hgb (11.4-16.0) gm/dL Hct (34.0-46.0) % Sodium (137-145) mmol/L Potassium (3.5-5.1) mmol/L POC Glucose (mg/dL) 178 H 122 H 73 L (75-99) mg/dL Calcium (8.4-10.2) mg/dL Total Protein (6.3-8.2) g/dL Albumin (3.5-5.0) g/dL 07/14/17 07/14/17 07/14/17 Range/Units 06:13 06:29 06:29 RBC 3.18 L (3.80-5.40) m/uL Hgb 9.2 L (11.4-16.0) gm/dL Hct 28.8 L (34.0-46.0) % Sodium 135 L (137-145) mmol/L Potassium 5.3 H (3.5-5.1) mmol/L POC Glucose (mg/dL) 105 H (75-99) mg/dL Calcium 7.8 L (8.4-10.2) mg/dL Total Protein 5.4 L (6.3-8.2) g/dL Albumin 2.8 L (3.5-5.0) g/dL 07/14/17 Range/Units 11:20 RBC (3.80-5.40) m/uL Hgb (11.4-16.0) gm/dL Hct (34.0-46.0) % Sodium (137-145) mmol/L Potassium (3.5-5.1) mmol/L POC Glucose (mg/dL) 199 H (75-99) mg/dL Calcium (8.4-10.2) mg/dL Total Protein (6.3-8.2) g/dL Albumin (3.5-5.0) g/dL Assessment and Plan Plan: The patient was seen along with the nurse practitioner. This is a joint evaluation. I attest of the information mentioned above. There has been some setbacks on this patient's condition since yesterday. The patient became slightly hypoglycemic and she was taken off the 3-point insulin scale. Currently she is on oral hypoglycemics and she is on a combination of metformin and glyburide. We'll monitor blood sugar. She also developed a new onset atrial fibrillation. She was started on amiodarone. Her rhythm is A. fib get the rate is controlled. No chest pain. No respiratory difficulties at this point and she is hemodynamically stable and hemoglobin is at 9.2. We'll continue to follow.
--- NOTE | 2017-07-14 10:55 | P.PN ---
Subjective Progress Note Date: 07/14/17 Principal diagnosis: Status post aortic valve replacement and coronary artery bypass grafting surgery times one This is a pleasant 72-year-old female who is status post aortic valve replacement and coronary artery bypass grafting surgery times one. She's overall progressing very well, went into atrial fibrillation and was initiated on amiodarone. This morning she has converted back to normal sinus rhythm. Chest x-ray performed this morning showed improving aeration of the right base, small left greater than right pleural effusion. Blood pressure 126/58 with a heart rate in the 90s. White blood cell count 9.0, hemoglobin 9.2, sodium 135, potassium 5.3, BUN 17, creatinine 0.7. Magnesium level I.6. Objective - Vital Signs Vital signs: Vital Signs Temp 97.9 F 07/14/17 04:00 Pulse 90 07/14/17 04:00 Resp 18 07/14/17 04:00 BP 126/58 07/14/17 04:00 Pulse Ox 95 07/14/17 04:00 Intake & Output 07/13/17 07/14/17 07/14/17 18:59 06:59 18:59 Intake Total 840 180 Output Total 2700 750 Balance -1860 -750 180 Weight 79.4 kg Intake: Oral 840 180 Output: Urine 2700 750 Other: Voiding Method Toilet # Voids 1 1 # Bowel Movements 1 ABP, PAP, CO, CI - Last Documented Arterial Blood Pressure 139/56 Pulmonary Artery Pressure 32/14 Cardiac Output 5 Cardiac Index 3.0 - Exam PHYSICAL EXAMINATION: HEENT: Head is atraumatic, normocephalic. Pupils equal, round. Neck is supple. There is no elevated jugular venous pressure. HEART EXAMINATION: Heart S1, S2 normal. No murmur or gallop heard. CHEST EXAMINATION: Lungs reveal diminished air entry to bilateral bases with fine crackles to the bases. ABDOMEN: Soft, nontender. Bowel sounds are heard. No organomegaly noted. EXTREMITIES:[ 2+ peripheral pulses with 1+ evidence of peripheral edema and no calf tenderness noted]. NEUROLOGIC [patient is awake, alert and oriented -3.] . - Labs CBC & Chem 7: 07/14/17 06:29 07/14/17 06:29 Labs: Abnormal Lab Results - Last 24 Hours (Table) 07/13/17 07/13/17 07/13/17 Range/Units 11:38 16:25 20:18 RBC (3.80-5.40) m/uL Hgb (11.4-16.0) gm/dL Hct (34.0-46.0) % Sodium (137-145) mmol/L Potassium (3.5-5.1) mmol/L POC Glucose (mg/dL) 178 H 122 H 73 L (75-99) mg/dL Calcium (8.4-10.2) mg/dL Total Protein (6.3-8.2) g/dL Albumin (3.5-5.0) g/dL 07/14/17 07/14/17 07/14/17 Range/Units 06:13 06:29 06:29 RBC 3.18 L (3.80-5.40) m/uL Hgb 9.2 L (11.4-16.0) gm/dL Hct 28.8 L (34.0-46.0) % Sodium 135 L (137-145) mmol/L Potassium 5.3 H (3.5-5.1) mmol/L POC Glucose (mg/dL) 105 H (75-99) mg/dL Calcium 7.8 L (8.4-10.2) mg/dL Total Protein 5.4 L (6.3-8.2) g/dL Albumin 2.8 L (3.5-5.0) g/dL Assessment and Plan Plan: Assessment and plan 1 status post single-vessel bypass grafting surgery and aortic valve replacement #2 hypertension #3 hyperlipidemia #4 paroxysmal atrial fibrillation Plan From cardiology's perspective, we'll continue patient on her current medications. DNP note has been reviewed, I agree with a documented findings and plan of care. Patient was seen and examined.
[2017-07-14 11:22] LABS: Glucose,Whole Blood 199 mg/dL (75-99)
[2017-07-14] MEDS: LINAGLIPTIN 5 MG TABLET PO SCH (12:14)
[2017-07-14] MEDS: CHOLECALCIFEROL 1,000 UNIT TAB PO SCH (12:21)
[2017-07-14] MEDS: MULTIVITAMINS, THERA 1 EACH TAB PO SCH (12:22)
[2017-07-14 16:55] LABS: Glucose,Whole Blood 133 mg/dL (75-99)
--- NOTE | 2017-07-14 19:01 | P.PN ---
Progress Note - Text Progress Note Date: 07/14/17 DATE OF SERVICE: 07/14/2017 PRESENTING COMPLAINT: scheduled surgery for aortic valve replacement HISTORY OF PRESENT ILLNESS: 72-year-old female status post aortic valve replacement with biprosthetic valve single vessel CABG.postoperatively patient was intubated and sedated and on critical care drips. INTERVAL HISTORY: 07/14/2017: Patient seen in follow-up, sitting in the chair today very director insurance. Developed atrial fibrillation overnight was initiated on amiodarone, this morning she is artery converted back to normal sinus rhythm. Heart hugger in place, transfers with assistance ambulatory with assistance. Small BM today, passing flatus, appetite good eating between 50 and 80% of her meals. 07/13/2017: Patient seen in follow-up, Patient sitting up in a chair at the bedside and 6 E. very director insurance and conversational. She's participating in her care, one mediastinal chest tube remains. Heart hugger in place, transfers with assistance ambulatory with assistance. No BM today, passing flatus, appetite good eating between 50 and 80% of her breakfast. 07/12/2017: Patient sitting up on the bedside commode more director insurance today answering questions and participating in her care. One mediastinal chest tube remains. Heart hugger in place, Amanda catheter removed. Transfers with assistance. 07/11/2017: patient lying in bed appears tired but alert and able to answer questions. Had been up in the chair for a while. No drips are on. Heart Hugger in place right mediastinal chest tube remains Amanda catheter remains Tolerating her diet, transfers with assistance, feels as though she needs to have a bowel movement.pleural chest tube removed earlier. 07/10/2017: patient sitting up in chair,tired appearing successfully extubated. Heart Hugger in place, drips include insulin and Cleviprex.right pleural/mediastinal chest tube to suction,appetite is low, barely ate 10% of her breakfast. REVIEW OF SYSTEMS: Done for constitutional ,cardiovascular, GI, pulmonary , chest wall,with relevant findings as above. CURRENT MEDICATIONS DuoNeb's, Lipitor 40 mg by mouth daily,Plavix 75 mg by mouth daily, Tapazole 10 mg by mouth daily, Lopressor 25mg by mouth twice a day,oxycodone 10 mg by mouth every 4 hours, Protonix 40 mg by mouth before meals, NovoLog mix 70-30, 32 units , lispro 8 units,Linagliptin 5 mg by mouth daily. PHYSICAL EXAM VITAL SIGNS: temperature 98.9, pulse 93, respirations 22, blood pressure 117/56, oxygen saturation 94% on room air. Chest x-ray: Improving aeration of the right lung base, adjacent left basilar atelectasis, small right apical pneumothorax which is stable. GENERAL APPEARANCE: Sitting up in a chair at the bedside, appears comfortable EYES: Pupils equal. Conjunctiva normal. NECK: JVD Unable to assess. Mass not palpable. RESPIRATORY: Respiratory effort normal. Lungs diminished to auscultation. CARDIOVASCULAR: First and second sounds normal. Mild edema. CHEST: Heart Hugger in place ABDOMEN: Soft. Liver and spleen not palpable. No tenderness. No mass palpable. PSYCHIATRY: Alert and oriented x3. Mood and affect normal. INVESTIGATIONS: Hemoglobin 9.2, sodium 135, potassium 5.3, Accu-Cheks noted. Calcium 7.8 ASSESSMENT: -Paroxysmal atrial fibrillation, new onset, converted to sinus rhythm, on amiodarone -status post single-vessel coronary artery bypass and aortic valve replacement with bioprosthetic valve and left atrial appendage clipping. -Acute blood loss anemia as expected from surgery -Postoperative ventilator assistance as expected for respiratory support, extubated -Diabetes mellitus type 2 on insulin. -Gastroesophageal reflux disease. -Essential hypertension. -Hyperlipidemia. -Primary osteoarthritis. -Hypothyroidism PLAN: Patient converted to sinus rhythm early this morning, amiodarone continues, glucose controlled with metformin and glyburide, stable from respiratory and point as well. May discharge to rehab facility soon. Plan of care discussed with the patient the bedside we will continue to follow closely. STONE SETTER statement: Patient was seen and examined by nurse practitioner Delaney Del Toro and all elements of the case discussed with attending Dr. Church
[2017-07-14 20:40] LABS: Glucose,Whole Blood 167 mg/dL (75-99)
[2017-07-14] MEDS: SENNOSIDES-DOCUSATE SODIUM 1 EACH TAB PO SCH (21:54)
--- NOTE | 2017-07-14 21:59 | PN ---
PROGRESS NOTE DATE OF SERVICE: 07/14/2017 ATTENDING NOTE: This patient was seen and examined by me. I discussed with my nurse practitioner, Ms. Del Toro. The patient is status post single-vessel CABG and aortic valve replacement. The patient doing much better, tolerating a diet, up and about. Breathing is getting better, had a bowel movement. EXAMINATION: Afebrile, blood pressure 120/58, pulse 95, respirations 16. Hemoglobin 9.2. Accu-Cheks noted. ASSESSMENT: 1. Status post coronary artery bypass graft. 2. Paroxysmal atrial fibrillation, back into sinus rhythm. 3. Diabetes mellitus type 2, on oral hypoglycemics. Overall doing much better. Care was discussed with the patient. MMODL / IJN: [id number] /
[2017-07-15] MEDS: HEPARIN SODIUM,PORCINE 5,000 UNIT/ML 1 ML VIAL SQ SCH ×4 (00:24→23:36)
[2017-07-15 01:49] LABS: Glucose,Whole Blood 142 mg/dL (75-99)
[2017-07-15] MEDS: INSULIN LISPRO (humaLOG) 300 UNIT/3 ML VIAL SQ SCH ×4 (05:56→21:05)
[2017-07-15 05:59] LABS: Glucose,Whole Blood 129 mg/dL (75-99)
[2017-07-15 06:41] LABS: Ionized Calcium 4.2 mg/dL (4.5-5.3)
[2017-07-15 06:47] LABS: CH 27.9; CHCM 31.3; HCT 26.7 % (34.0-46.0); HDW 2.78; HGB 8.6 gm/dL (11.4-16.0); Hypochromasia Slight; MCH 28.8 pg (25.0-35.0); MCHC 32.1 g/dL (31.0-37.0); MCV 89.6 fL (80.0-100.0); Mean Platelet Volume 9.2; RBC 2.98 m/uL (3.80-5.40); RDW 14.6 % (11.5-15.5); WBC 9.3 k/uL (3.8-10.6)
[2017-07-15 06:51] LABS: Magnesium 1.4 mg/dL (1.6-2.3)
[2017-07-15] MEDS: GLIMEPIRIDE 4 MG TAB PO SCH (06:51)
[2017-07-15] MEDS: PANTOPRAZOLE 40 MG TABLET PO SCH (06:51)
[2017-07-15] MEDS: metFORMIN 500 MG TAB PO SCH ×2 (06:51→16:55)
[2017-07-15 07:45] LABS: Anion Gap 7 mmol/L; Blood Urea Nitrogen 15 mg/dL (7-17); Calcium 7.9 mg/dL (8.4-10.2); Carbon Dioxide 26 mmol/L (22-30); Chloride 98 mmol/L (98-107); Glucose 129 mg/dL (74-99); Non-African American GFR(MDRD) >60 (>60 ml/min/1.73 sqM); Potassium 4.6 mmol/L (3.5-5.1); Sodium 131 mmol/L (137-145)
--- NOTE | 2017-07-15 07:48 | XR ---
EXAMINATION TYPE: XR chest 1V portable DATE OF EXAM: 07/15/2017 HISTORY: Shortness of breath. COMPARISON: July 14, 2017 TECHNIQUE: Single view of the chest is submitted. FINDINGS: Right apical pneumothorax is unchanged. Demonstrated are scattered senescent parenchymal change. Persistent patchy basilar infiltrates. The heart is stable. Hilar and mediastinal structures are within normal limits. Degenerative changes are seen of the dorsal spine. IMPRESSION: 1. Stable less than 10% right-sided pneumothorax. 2. Stable patchy basilar infiltrates.
[2017-07-15] MEDS: HYDROcodone/APAP 5-325MG 1 EACH TAB PO PRN (07:56)
[2017-07-15] MEDS: AMIODARONE 450 MG in DEXTROSE 5% IN WATER 250 ML IV SCH ×4 (08:05→19:40)
[2017-07-15] MEDS: MAGNESIUM SULFATE-D5W PMX 1 GM in DEXTROSE/WATER 1 100ML.BAG IVPB SCH ×3 (08:06→13:34)
[2017-07-15] MEDS: CLOPIDOGREL 75 MG TAB PO SCH (08:11)
[2017-07-15] MEDS: MUPIROCIN 2% OINT 22 GM TUBE NASAL SCH ×2 (08:11→21:09)
[2017-07-15] MEDS: ATORVASTATIN 40 MG TAB PO SCH (08:11)
[2017-07-15] MEDS: ASPIRIN 325 MG TAB PO SCH (08:11)
[2017-07-15] MEDS: LINAGLIPTIN 5 MG TABLET PO SCH (08:12)
[2017-07-15] MEDS ORDERED: DEXTROSE 5% IN WATER 100 ML with AMIODARONE 150 MG IV ONE ×2 (08:13→11:30)
[2017-07-15] MEDS: METHIMAZOLE 5 MG TAB PO SCH (08:13)
[2017-07-15] MEDS: CHOLECALCIFEROL 1,000 UNIT TAB PO SCH (08:14)
[2017-07-15] MEDS ORDERED: FUROSEMIDE 10 MG/ML 2 ML VIAL IV ONE ×2 (08:16→16:00)
[2017-07-15] MEDS ORDERED: CALCIUM GLUCONATE 2,000 MG in SODIUM CHLORIDE 0.9% 100 ML IVPB ONE (08:30)
[2017-07-15] MEDS: AMIODARONE 200 MG TAB PO SCH ×2 (08:53→21:09)
[2017-07-15] MEDS ORDERED: FUROSEMIDE 20 MG TAB PO SCH (09:00)
--- NOTE | 2017-07-15 10:14 | P.PN ---
Subjective Progress Note Date: 07/15/17 Principal diagnosis: Severe aortic valve stenosis. Coronary artery disease. Type 2 diabetes mellitus with preoperative hemoglobin A1c 6.1%. Hyperlipidemia. Hypertension. Osteoarthritis. Hyperthyroidism. History of basal cell skin cancer. Obesity. Current tobacco dependence. Family history of heart disease. POD #6 elective aortic valve replacement using 21 mm Szymanski magna ease bioprosthetic tissue valve. Coronary artery bypass grafting 1 vessel, a reverse greater saphenous vein graft to obtuse marginal artery. Endoscopic vein harvesting right greater saphenous vein. Epi-aortic ultrasound. Intraoperative transesophageal echocardiogram. Clipping of left atrial appendage using a 35 mm Atriclip. Patient is currently sitting up to the bedside chair and is in no acute distress. Complaining of pain 8 out of 10 on the pain scale to her left mid back. She reports she walked in the hallway to the window and back 2 yesterday , and tolerated the walks well. Objective - Vital Signs Vital signs: Vital Signs Temp 99.8 F H 07/15/17 04:00 Pulse 85 07/15/17 08:00 Resp 16 07/15/17 08:00 BP 142/64 07/15/17 08:00 Pulse Ox 97 07/15/17 08:00 Intake & Output 07/14/17 07/15/17 07/15/17 18:59 06:59 18:59 Intake Total 540 400 Output Total 400 700 Balance 140 -300 Weight 81.2 kg Intake: Oral 540 400 Output: Urine 400 700 Other: Voiding Method Toilet Toilet # Voids 1 # Bowel Movements 1 ABP, PAP, CO, CI - Last Documented Arterial Blood Pressure 139/56 Pulmonary Artery Pressure 32/14 Cardiac Output 5 Cardiac Index 3.0 - Constitutional General appearance: Present: cooperative, no acute distress, obese - EENT Eyes: Present: PERRLA ENT: Present: hearing grossly normal - Neck Details: No JVD, no lymphadenopathy. - Respiratory Details: Lung sounds are essentially clear throughout, diminished to her bilateral bases. Respirations are symmetrical and nonlabored. Oxygen saturation are 96% on room air. She is achieving 750 mL on her incentive spirometry. - Cardiovascular Details: Irregular rhythm and controlled rate. S1 and S2 present, negative for S3, gallop or murmur. Sternum is stable. Remote telemetry showing atrial fibrillation heart rate 82. Heart hugger is in place and she is demonstrating appropriate use of the heart hugger. +2 edema to her left arm, +2 edema to her bilateral feet. Knee-high MARY hose and sequential compression devices in place to her bilateral lower extremities. - Gastrointestinal Gastrointestinal Comment(s): Abdomen is soft, nontender and nondistended. She is tolerating oral intake. Bowel sounds are active to all 4 abdominal quadrants. Passing flatus. - Genitourinary Genitourinary Comment(s): Urine output is adequate, periods of incontinence. Clear yellow urine. - Integumentary Integumentary Comment(s): Midline sternal incision is clean dry and well approximated. No drainage noted. Dermabond dressing clean dry and intact. Right lower extremity EVH sites clean dry and intact. - Neurologic Neurologic Comment(s): No focal deficits. Neurologic: Present: CNII-XII intact - Musculoskeletal Musculoskeletal: Present: gait normal, strength equal bilaterally - Psychiatric Psychiatric: Present: A&O x's 3, appropriate affect, intact judgment & insight - Allied health notes Allied health notes reviewed: nursing - Labs CBC & Chem 7: 07/15/17 06:28 07/15/17 06:28 Labs: Abnormal Lab Results - Last 24 Hours (Table) 07/14/17 07/14/17 07/14/17 Range/Units 11:20 16:53 20:38 RBC (3.80-5.40) m/uL Hgb (11.4-16.0) gm/dL Hct (34.0-46.0) % Sodium (137-145) mmol/L Glucose (74-99) mg/dL POC Glucose (mg/dL) 199 H 133 H 167 H (75-99) mg/dL Calcium (8.4-10.2) mg/dL Ionized Calcium Kiarra (4.5-5.3) mg/dL Magnesium (1.6-2.3) mg/dL 07/15/17 07/15/17 07/15/17 Range/Units 01:46 05:48 05:55 RBC (3.80-5.40) m/uL Hgb (11.4-16.0) gm/dL Hct (34.0-46.0) % Sodium (137-145) mmol/L Glucose (74-99) mg/dL POC Glucose (mg/dL) 142 H 129 H (75-99) mg/dL Calcium (8.4-10.2) mg/dL Ionized Calcium Kiarra 4.2 L (4.5-5.3) mg/dL Magnesium 1.4 L (1.6-2.3) mg/dL 07/15/17 07/15/17 Range/Units 06:28 06:28 RBC 2.98 L (3.80-5.40) m/uL Hgb 8.6 L (11.4-16.0) gm/dL Hct 26.7 L (34.0-46.0) % Sodium 131 L (137-145) mmol/L Glucose 129 H (74-99) mg/dL POC Glucose (mg/dL) (75-99) mg/dL Calcium 7.9 L (8.4-10.2) mg/dL Ionized Calcium Kiarra (4.5-5.3) mg/dL Magnesium (1.6-2.3) mg/dL - Imaging and Cardiology Chest x-ray: report reviewed, image reviewed (Small right apical pneumothorax, 5 %.) Assessment and Plan (1) Family history of coronary artery disease Status: Acute (2) History of basal cell carcinoma Status: Acute (3) Hyperthyroidism Status: Acute (4) Osteoarthritis Status: Acute (5) Severe aortic stenosis Status: Acute (6) Coronary artery disease Status: Acute (7) Diabetes mellitus, type II Status: Acute (8) Hyperlipidemia Status: Acute (9) Hypertension Status: Acute (10) Obesity (BMI 30.0-34.9) Status: Acute (11) Tobacco dependence Status: Acute Plan: 1. Continue aspirin, statin, Plavix, heparin subcu, beta berta. Metoprolol changed to 75 mg by mouth twice a day. 2. Encourage incentive spirometer use every hour while awake. 3. Amiodarone 400 mg by mouth twice a day. Amiodarone 150 mg IV piggyback bolus for atrial fibrillation. 4. Increase activity, ambulate in hallway. Physical therapy and cardiac rehab following. 5. GI for/DVT prophylaxis. 6. Will monitor daily labs, x-rays. 7. Insulin management per primary care service. 8. Magnesium and calcium replaced per protocol. 9. Ultrasound of left upper extremity rule out DVT. 10. Lasix 20 mg IV 1 today. 11. More recommendations as patient progresses. 12. Discharge planning in progress. Will need subacute rehab at discharge. Case management/social work consulted awaiting insurance authorization. Possible discharge in the next 24-48 hours. Time with Patient: Greater than 30
--- NOTE | 2017-07-15 10:43 | US ---
EXAMINATION TYPE: US venous doppler duplex UE LT DATE OF EXAM: 07/15/2017 COMPARISON: NONE CLINICAL HISTORY: swelling left arm.. Patient is taking heparin SIDE PERFORMED: Left Grayscale, color doppler, spectral doppler imaging performed of the deep veins of the upper extremiti es. There is normal flow, compressability and vascular waveforms. Left Arm: Appears negative for DVT IMPRESSION: No evidence for DVT at this time.
[2017-07-15] MEDS: METOPROLOL TARTRATE 25 MG TAB PO SCH ×2 (10:46→21:08)
[2017-07-15 11:17] VITALS: BMI 34.9
[2017-07-15 11:37] LABS: Glucose,Whole Blood 169 mg/dL (75-99)
--- NOTE | 2017-07-15 11:49 | CDI ---
In responding to this query, please exercise your independent professional judgment. The [facility] Coding Staff and Clinical Documentation Specialists appreciate your assistance in clarifying documentation, maintaining compliance with coding guidelines, accurately documenting patients condition and capturing severity of illness. The fact that a question is asked does not imply that any particular answer is desired or expected. Communication forms are a method of clarifying documentation and are not made part of the Legal Health Record. Thank you in advance for your clarification. Last Revision, Nov 2016 Shira Roche [address] [facility] [place] [address] Documentation Clarification Form Date: 07/15/2017 11:26:00 AM From: Noemy Almendarez RN, CDS Admit Date: 07/09/2017 5:37:00 AM Patient Name: Kasey Justin Visit Number: [id number] Dr. Nathaniel Odonnell 72 year old patient directly admitted for elective Aortic Valve Replacement bioprosthetic valve and single vessel coronary artery bypass graft, clipping left atrial appendage with Atriclip, endoscopic vein harvesting. Post operative chest x-rays report "left pleural effusion" beginning 07/11 then "small left greater than right pleural effusions" 07/13 through 07/14. "stable patchy infiltrates" reported on chest xray 07/15 History/Risk Factors: Severe aortic stenosis, HTN, CAD Clinical Indicators: Post operative chest xrays report "left pleural effusion" beginning 07/11 then "small left greater than right pleural effusions" 07/13 through 07/14, "stable patchy infiltrates" reported on chest xray 07/15 Treatment: IV Lasix 20mg one time order and given each day-6 doses given total , daily chest xray, pulmonary consult, cardiology consult, In order to accurately reflect this patients severity of illness, please clarify if the post-operative diagnosis of pleural effusion is: An expected post-procedural or post-surgical condition Inherent to the procedure An unexpected post-procedural or post-surgical condition, related to surgical care Other, please specify Unable to determine Please document in your progress notes and discharge summary in order to capture severity of illness and risk of mortality. Include clinical findings that support your diagnosis. FYI: Press F11 to launch patient chart Thank you. RAFAEL
--- NOTE | 2017-07-15 11:49 | P.PN ---
Subjective Progress Note Date: 07/15/17 Severe aortic stenosis, status post aortic valve replacement. Coronary disease status post coronary artery bypass graft times one. This is a very pleasant 72-year-old female patient who follows with Dr. Howard Glover as her primary care physician. She has a history of diabetes mellitus, hypertension, hyperlipidemia, osteoarthritis, coronary artery disease and known severe aortic stenosis. She presented here yesterday for an elective surgery. She is now status post aortic valve replacement utilizing a 21 mm Szymanski magna ease bioprosthetic tissue valve along with coronary artery bypass grafting utilizing a saphenous vein graft to the obtuse marginal artery. This is postoperative day #1. Seen in consultation in the intensive care unit. She was successfully extubated and is maintaining good O2 saturations in the 90s on 6 L/m per nasal cannula. She remains manager oncology for approximate 5 mg per hour. She is on insulin drip at 2.5 units per hour. Lactated Ringer's at 50 MLS per hour. He is currently sitting up in a chair at the bedside. She is awake and alert in no acute distress. Her surgical pain is well controlled. She is working well with the incentive spirometer and cough and deep breathing exercises. X-ray does reveal small bilateral effusions and some basilar atelectasis. Right pleural and mediastinal chest tubes remain in place. Salters- Eriberto catheter is been removed. Pacing wires remain in place with a VVI mode with backup at 50. The patient is seen again today 07/13/2017 in follow-up on the selective care unit. This is postoperative day #4. She is presently sitting up in the chair at the bedside. She is awake and alert in no acute distress. Her chest tubes have been removed. Today's chest x-ray revealed cardiomegaly with residual mild pulmonary vascular congestion. There is a small left pleural effusion. Focal opacity in the right midlung remains unchanged. She is maintaining good O2 saturations in the 90s on room air. Afebrile. She's been hemodynamically stable. Hemoglobin 9.3. Patient is seen again today 07/14/2017 in follow-up on the selective care unit. This is postoperative day #5. She is currently sitting up in a chair at the bedside. She is awake and alert in no acute distress. Today's chest x-ray reveals improved aeration of the right base. There is still some atelectasis in the left lung base. Small bilateral pleural effusions left greater than right. Small right apical pneumothorax is stable. She denies any worsening shortness of breath, cough or congestion. She is maintaining good O2 saturations in the mid upper 90s on room air. She remains afebrile. No leukocytosis. Hemoglobin 9.2. She did have some issues with hypoglycemia and intermittent atrial fibrillation with varying ventricular response. Cardiology is on the case as well. On 07/15/2017 I'm seeing this patient for a follow-up. The patient is still in atrial fibrillation. She has completed amiodarone loading dose. She is not on anticoagulants yet. However the plan is to start this patient on warfarin today and a dose of 7.5 mg will be given to her tonight. She has no specific complaints. Her blood sugars have improved and there are no hypoglycemic events as the patient was taken off the insulin long-acting and the patient was switched to oral hypoglycemics. She is on a Humalog sliding scale coverage in addition. From the pulmonary standpoint, the sternal wound is dry clean and intact which is not having any major respiratory difficulties. Her atrial fibrillation is in a controlled rate at this point. She was switched to oral amiodarone 400 mg by mouth twice a day. She is also on metoprolol 75 mg by mouth twice a day. Objective - Vital Signs Vital signs: Vital Signs Temp 99.8 F H 07/15/17 04:00 Pulse 85 07/15/17 08:00 Resp 16 07/15/17 11:19 BP 142/64 07/15/17 08:00 Pulse Ox 97 07/15/17 08:00 Intake & Output 07/14/17 07/15/17 07/15/17 18:59 06:59 18:59 Intake Total 540 400 240 Output Total 400 700 Balance 140 -300 240 Weight 81.2 kg 81.2 kg Intake: Oral 540 400 240 Output: Urine 400 700 Other: Voiding Method Toilet Toilet Toilet # Voids 1 # Bowel Movements 1 ABP, PAP, CO, CI - Last Documented Arterial Blood Pressure 139/56 Pulmonary Artery Pressure 32/14 Cardiac Output 5 Cardiac Index 3.0 - Exam GENERAL EXAM: Alert, active, comfortable in no apparent distress. HEAD: Normocephalic. EYES: Normal reaction of pupils, equal size. NOSE: Clear with pink turbinates. THROAT: No erythema or exudates. NECK: No masses, no JVD. CHEST: Sternal dressing dry and intact. LUNGS: Equal air entry with crackles in the posterior bases. CVS: S1 and S2 normal with no audible murmurs, irregular rhythm secondary to atrial fibrillation. ABDOMEN: No hepatosplenomegaly, hypoactive bowel sounds, no guarding or rigidity. SPINE: No scoliosis or deformity SKIN: No rashes CENTRAL NERVOUS SYSTEM: No focal deficits, tone is normal in all 4 extremities. Extremities: There is trace peripheral edema. No clubbing, no cyanosis. Peripheral pulses are intact. - Labs CBC & Chem 7: 07/15/17 06:28 07/15/17 06:28 Labs: Abnormal Lab Results - Last 24 Hours (Table) 07/14/17 07/14/17 07/15/17 Range/Units 16:53 20:38 01:46 RBC (3.80-5.40) m/uL Hgb (11.4-16.0) gm/dL Hct (34.0-46.0) % Sodium (137-145) mmol/L Glucose (74-99) mg/dL POC Glucose (mg/dL) 133 H 167 H 142 H (75-99) mg/dL Calcium (8.4-10.2) mg/dL Ionized Calcium Kiarra (4.5-5.3) mg/dL Magnesium (1.6-2.3) mg/dL 07/15/17 07/15/17 07/15/17 Range/Units 05:48 05:55 06:28 RBC 2.98 L (3.80-5.40) m/uL Hgb 8.6 L (11.4-16.0) gm/dL Hct 26.7 L (34.0-46.0) % Sodium (137-145) mmol/L Glucose (74-99) mg/dL POC Glucose (mg/dL) 129 H (75-99) mg/dL Calcium (8.4-10.2) mg/dL Ionized Calcium Kiarra 4.2 L (4.5-5.3) mg/dL Magnesium 1.4 L (1.6-2.3) mg/dL 07/15/17 07/15/17 Range/Units 06:28 11:35 RBC (3.80-5.40) m/uL Hgb (11.4-16.0) gm/dL Hct (34.0-46.0) % Sodium 131 L (137-145) mmol/L Glucose 129 H (74-99) mg/dL POC Glucose (mg/dL) 169 H (75-99) mg/dL Calcium 7.9 L (8.4-10.2) mg/dL Ionized Calcium Kiarra (4.5-5.3) mg/dL Magnesium (1.6-2.3) mg/dL Assessment and Plan Plan: Impression: #1 Severe aortic stenosis status post aortic valve replacement utilizing a 21 mm Szymanski magna ease bioprosthetic tissue valve. Postoperative day #6 #2 Coronary artery disease status post coronary artery bypass grafting utilizing a saphenous vein graft to the obtuse marginal branch. Postoperative day #6 #3 Diabetes mellitus with episodes of hypoglycemia, improved, currently on oral hypoglycemic agents with a combination of metformin and Amaryl. #4 Hyperlipidemia. #5 Hypertension. #6 Osteoarthritis. #7 History of basal cell carcinoma. #8 Chronic and ongoing tobacco dependence. #9 New-onset atrial fibrillation, rate controlled and anticoagulation will be started. #10 Anemia, current hemoglobin 8.6 Plan Switch this patient to oral amiodarone 4 mg by mouth twice a day. Continue metoprolol. Initiate anti-coagulation with warfarin. Monitor the cardiac rhythm. Continue using incentive spirometer. Overall pulmonary status is stable. Hemoglobin stable at 8.6 with some interval drop and will continue monitoring the hemoglobin. Ambulate the patient in the hallway. We'll continue to follow.
[2017-07-15] MEDS: MULTIVITAMINS, THERA 1 EACH TAB PO SCH (11:58)
--- NOTE | 2017-07-15 12:30 | P.PN ---
Subjective Progress Note Date: 07/15/17 Principal diagnosis: Status post aortic valve replacement and coronary artery bypass grafting surgery times one This is a pleasant 72-year-old female who is status post aortic valve replacement and coronary artery bypass grafting surgery times one. She's overall progressing very well, went into atrial fibrillation and was initiated on amiodarone. This morning she has converted back to normal sinus rhythm. Chest x-ray performed this morning showed improving aeration of the right base, small left greater than right pleural effusion. Blood pressure 126/58 with a heart rate in the 90s. White blood cell count 9.0, hemoglobin 9.2, sodium 135, potassium 5.3, BUN 17, creatinine 0.7. Magnesium level I.6. 07/15/2017 Patient went back into atrial fibrillation this morning, at the time of our examination, patient converted to normal sinus rhythm. Because of her multiple episodes of paroxysmal atrial fibrillation the recommendation was to initiate anticoagulation in the form of Coumadin. She will receive a dose of 7-1/2 mg of Coumadin today. Patient continues to be on a baby aspirin along with Plavix , Dr. Rogers's recommendation is that Plavix be discontinued. Overall the patient is doing well, breathing is stable, no complaints. Magnesium level I.4 which was replaced. Objective - Vital Signs Vital signs: Vital Signs Temp 99.8 F H 07/15/17 04:00 Pulse 85 07/15/17 08:00 Resp 16 07/15/17 11:19 BP 142/64 07/15/17 08:00 Pulse Ox 97 07/15/17 08:00 Intake & Output 07/14/17 07/15/17 07/15/17 18:59 06:59 18:59 Intake Total 540 400 240 Output Total 400 700 Balance 140 -300 240 Weight 81.2 kg 81.2 kg Intake: Oral 540 400 240 Output: Urine 400 700 Other: Voiding Method Toilet Toilet Toilet # Voids 1 # Bowel Movements 1 ABP, PAP, CO, CI - Last Documented Arterial Blood Pressure 139/56 Pulmonary Artery Pressure 32/14 Cardiac Output 5 Cardiac Index 3.0 - Exam PHYSICAL EXAMINATION: HEENT: Head is atraumatic, normocephalic. Pupils equal, round. Neck is supple. There is no elevated jugular venous pressure. HEART EXAMINATION: Heart S1, S2 normal. No murmur or gallop heard. CHEST EXAMINATION: Lungs reveal diminished air entry to bilateral bases with fine crackles to the bases. ABDOMEN: Soft, nontender. Bowel sounds are heard. No organomegaly noted. EXTREMITIES:[ 2+ peripheral pulses with 1+ evidence of peripheral edema and no calf tenderness noted]. NEUROLOGIC [patient is awake, alert and oriented -3.] . - Labs CBC & Chem 7: 07/15/17 06:28 07/15/17 06:28 Labs: Abnormal Lab Results - Last 24 Hours (Table) 07/14/17 07/14/17 07/15/17 Range/Units 16:53 20:38 01:46 RBC (3.80-5.40) m/uL Hgb (11.4-16.0) gm/dL Hct (34.0-46.0) % Sodium (137-145) mmol/L Glucose (74-99) mg/dL POC Glucose (mg/dL) 133 H 167 H 142 H (75-99) mg/dL Calcium (8.4-10.2) mg/dL Ionized Calcium Kiarra (4.5-5.3) mg/dL Magnesium (1.6-2.3) mg/dL 07/15/17 07/15/17 07/15/17 Range/Units 05:48 05:55 06:28 RBC 2.98 L (3.80-5.40) m/uL Hgb 8.6 L (11.4-16.0) gm/dL Hct 26.7 L (34.0-46.0) % Sodium (137-145) mmol/L Glucose (74-99) mg/dL POC Glucose (mg/dL) 129 H (75-99) mg/dL Calcium (8.4-10.2) mg/dL Ionized Calcium Kiarra 4.2 L (4.5-5.3) mg/dL Magnesium 1.4 L (1.6-2.3) mg/dL 07/15/17 07/15/17 Range/Units 06:28 11:35 RBC (3.80-5.40) m/uL Hgb (11.4-16.0) gm/dL Hct (34.0-46.0) % Sodium 131 L (137-145) mmol/L Glucose 129 H (74-99) mg/dL POC Glucose (mg/dL) 169 H (75-99) mg/dL Calcium 7.9 L (8.4-10.2) mg/dL Ionized Calcium Kiarra (4.5-5.3) mg/dL Magnesium (1.6-2.3) mg/dL Assessment and Plan Plan: Assessment and plan 1 status post single-vessel bypass grafting surgery and aortic valve replacement #2 hypertension #3 hyperlipidemia #4 paroxysmal atrial fibrillation Plan From cardiology's perspective, patient will be initiated on Coumadin for stroke prevention. Dr. Rogers's recommendation is that the Plavix be discontinued, and aspirin 81 mg daily continued. DNP note has been reviewed, I agree with a documented findings and plan of care. Patient was seen and examined.
[2017-07-15 16:56] LABS: Glucose,Whole Blood 163 mg/dL (75-99)
[2017-07-15] MEDS: FAMOTIDINE 20 MG/2 ML VIAL IV SCH ×2 (17:26→21:09)
[2017-07-15] MEDS ORDERED: WARFARIN 7.5 MG TAB PO ONE (18:00)
[2017-07-15 20:47] LABS: Glucose,Whole Blood 128 mg/dL (75-99)
[2017-07-15] MEDS: SENNOSIDES-DOCUSATE SODIUM 1 EACH TAB PO SCH (21:08)
--- NOTE | 2017-07-16 00:06 | P.PN ---
Subjective Progress Note Date: 07/15/17 Principal diagnosis: Status post aortic wall replacement and single-vessel coronary bypass graft 72-year-old female was admitted to the hospital for aortic wall replacement and single-vessel coronary artery bypass graft. Patient went back to atrial fibrillation this morning and is currently in sinus rhythm. Patient was started on amiodarone and anticoagulation with Coumadin. Lasix was discontinued. Patient denied any chest pain or short of breath. No nausea vomiting abdominal pain. Patient is clinically improving. Patient does have chest soreness. No fever no chills. Participating in physical therapy. All other review of systems negative except above. Current medications reviewed Objective - Vital Signs Vital signs: Vital Signs Temp 98.2 F 07/15/17 20:00 Pulse 80 07/15/17 20:00 Resp 18 07/15/17 20:00 BP 125/58 07/15/17 20:00 Pulse Ox 97 07/15/17 20:00 Intake & Output 07/15/17 07/15/17 07/16/17 06:59 18:59 06:59 Intake Total 400 1310 Output Total 700 Balance -300 1310 Weight 81.2 kg 81.2 kg Intake: IV 180 Lactated Ringers 1,000 ml 180 @ 20 mls/hr IV .Q24H [facility] Rx#:[id number] Intake, IV Titration 650 Amount Amiodarone 450 mg In 50 Dextrose 5% in Water 250 ml @ 1 MG/MIN 33.33 mls/ hr IV .Q7H31M [facility] Rx#: [id number] Calcium Gluconate 2,000 100 mg In Sodium Chloride 0.9 % 100 ml @ 100 mls/hr IVPB ONCE ONE Rx#: [id number] Dextrose 5% in Water 100 100 ml @ 618 mls/hr IV .Q10M ONE with Amiodarone 150 mg Rx#:[id number] Dextrose 5% in Water 100 100 ml @ 618 mls/hr IV .Q10M ONE with Amiodarone 150 mg Rx#:[id number] Magnesium Sulfate-D5w Pmx 300 1 gm In Dextrose/Water 1 100ml.bag @ 100 mls/hr IVPB Q1H [facility] Rx#: [id number] Oral 400 480 Output: Urine 700 Other: Voiding Method Toilet Toilet Toilet # Voids 1 # Bowel Movements 1 1 ABP, PAP, CO, CI - Last Documented Arterial Blood Pressure 139/56 Pulmonary Artery Pressure 32/14 Cardiac Output 5 Cardiac Index 3.0 - Exam PHYSICAL EXAMINATION: Patient is lying in the bed comfortably, no acute distress, awake alert and oriented.. HEENT: Normocephalic. Neck is supple. Pupils reactive. Nostrils clear. Oral cavity is moist. Ears reveal no drainage. Neck reveals no JVD, carotid bruits, or thyromegaly. CHEST EXAMINATION: Trachea is central. Symmetrical expansion. Bibasilar diminished breath sounds and crackles positive. CARDIAC: Normal S1, S2 with no gallops. No murmurs . Sternal wound intact ABDOMEN: Soft. Bowel sounds normal. No organomegaly. No abdominal bruits. Extremities: 1+ edema. No clubbing or cyanosis Neurologically awake, alert, oriented x3 with well-coordinated movements. No focal deficits noted Skin: No rash or skin lesions. Psychiatric: Operative. Nonsuicidal Musculoskeletal: No joint swelling or deformity. Normal range of motion. - Labs CBC & Chem 7: 07/15/17 06:28 07/15/17 06:28 Labs: Abnormal Lab Results - Last 24 Hours (Table) 07/15/17 07/15/17 07/15/17 Range/Units 01:46 05:48 05:55 RBC (3.80-5.40) m/uL Hgb (11.4-16.0) gm/dL Hct (34.0-46.0) % Sodium (137-145) mmol/L Glucose (74-99) mg/dL POC Glucose (mg/dL) 142 H 129 H (75-99) mg/dL Calcium (8.4-10.2) mg/dL Ionized Calcium Kiarra 4.2 L (4.5-5.3) mg/dL Magnesium 1.4 L (1.6-2.3) mg/dL 07/15/17 07/15/17 07/15/17 Range/Units 06:28 06:28 11:35 RBC 2.98 L (3.80-5.40) m/uL Hgb 8.6 L (11.4-16.0) gm/dL Hct 26.7 L (34.0-46.0) % Sodium 131 L (137-145) mmol/L Glucose 129 H (74-99) mg/dL POC Glucose (mg/dL) 169 H (75-99) mg/dL Calcium 7.9 L (8.4-10.2) mg/dL Ionized Calcium Kiarra (4.5-5.3) mg/dL Magnesium (1.6-2.3) mg/dL 07/15/17 07/15/17 Range/Units 16:54 20:44 RBC (3.80-5.40) m/uL Hgb (11.4-16.0) gm/dL Hct (34.0-46.0) % Sodium (137-145) mmol/L Glucose (74-99) mg/dL POC Glucose (mg/dL) 163 H 128 H (75-99) mg/dL Calcium (8.4-10.2) mg/dL Ionized Calcium Kiarra (4.5-5.3) mg/dL Magnesium (1.6-2.3) mg/dL Assessment and Plan Plan: #1 severe aortic stenosis status post aortic valve replacement #2 coronary artery disease status post single-vessel bypass graft #3 new onset paroxysmal atrial fibrillation. Currently in sinus rhythm. #3 diabetes type 2 [id number] #4 hypertension #5 hyperlipidemia #6 osteoarthritis #7 anemia possibly acute blood loss. Hemoglobin 9.3-8.6. Monitor H&H Plan: Patient was found to be in atrial fibrillation this morning. Converted back to sinus rhythm. Due to multiple episodes of a fibrillation patient was started on amiodarone and anticoagulation with Coumadin. Plavix was discontinued and continued on aspirin. Continue with incentive spirometry. Blood sugar control. And another blood pressure medications. Further recommendations based on the clinical course. Time with Patient: Greater than 30
[2017-07-16 01:52] LABS: Glucose,Whole Blood 139 mg/dL (75-99)
[2017-07-16 06:01] VITALS: TEMP 98.6
[2017-07-16 06:35] LABS: Glucose,Whole Blood 152 mg/dL (75-99)
[2017-07-16] MEDS: GLIMEPIRIDE 4 MG TAB PO SCH ×2 (06:58→07:00)
[2017-07-16] MEDS: INSULIN LISPRO (humaLOG) 300 UNIT/3 ML VIAL SQ SCH ×2 (06:58→12:50)
[2017-07-16] MEDS: PANTOPRAZOLE 40 MG TABLET PO SCH (06:58)
[2017-07-16] MEDS: metFORMIN 500 MG TAB PO SCH (06:58)
[2017-07-16 07:03] LABS: Ionized Calcium 4.5 mg/dL (4.5-5.3)
[2017-07-16 07:08] LABS: Anion Gap 10 mmol/L; Blood Urea Nitrogen 13 mg/dL (7-17); Calcium 8.2 mg/dL (8.4-10.2); Carbon Dioxide 24 mmol/L (22-30); Chloride 96 mmol/L (98-107); Glucose 146 mg/dL (74-99); Magnesium 1.6 mg/dL (1.6-2.3); Non-African American GFR(MDRD) >60 (>60 ml/min/1.73 sqM); Phosphorus 3.1 mg/dL (2.5-4.5); Sodium 130 mmol/L (137-145)
[2017-07-16 07:15] LABS: INR 1.2 (<1.2); Prothrombin Time 11.5 sec (9.0-12.0)
[2017-07-16 08:07] LABS: CH 28.5; CHCM 32.6; HCT 26.2 % (34.0-46.0); HDW 2.93; HGB 8.7 gm/dL (11.4-16.0); MCH 29.1 pg (25.0-35.0); MCHC 33.1 g/dL (31.0-37.0); MCV 87.9 fL (80.0-100.0); Mean Platelet Volume 10.4; RBC 2.99 m/uL (3.80-5.40); WBC 8.2 k/uL (3.8-10.6)
[2017-07-16 08:11] LABS: Glucose,Whole Blood 201 mg/dL (75-99)
[2017-07-16] MEDS: HEPARIN SODIUM,PORCINE 5,000 UNIT/ML 1 ML VIAL SQ SCH (08:30)
[2017-07-16] MEDS: FAMOTIDINE 20 MG/2 ML VIAL IV SCH (08:30)
[2017-07-16] MEDS: AMIODARONE 200 MG TAB PO SCH (08:31)
[2017-07-16] MEDS: CLOPIDOGREL 75 MG TAB PO SCH (08:32)
[2017-07-16] MEDS: ATORVASTATIN 40 MG TAB PO SCH (08:32)
[2017-07-16] MEDS: LINAGLIPTIN 5 MG TABLET PO SCH (08:32)
[2017-07-16] MEDS: METHIMAZOLE 5 MG TAB PO SCH (08:33)
[2017-07-16] MEDS: MUPIROCIN 2% OINT 22 GM TUBE NASAL SCH (08:33)
[2017-07-16] MEDS: METOPROLOL TARTRATE 25 MG TAB PO SCH (08:34)
--- NOTE | 2017-07-16 08:43 | XR ---
EXAMINATION TYPE: XR chest 1V portable DATE OF EXAM: 07/16/2017 COMPARISON: Prior chest x-ray 07/15/2017 HISTORY: Abnormal chest x-ray, status post aortic valve replacement TECHNIQUE: Single frontal view of the chest is obtained. FINDINGS: The heart remains enlarged. Interstitium is mildly increased. There may be a minimal resid ual apical pneumothorax on the right. Left atrial appendage clipping is noted. Retrocardiac density p ersists.. IMPRESSION: Postop changes. Basilar atelectasis versus edema, difficult to exclude small effusion. S uspect component of volume overload, pulmonary venous hypertension and interstitial edema. There may be minimal residual apical pneumothorax on the right.
--- NOTE | 2017-07-16 08:57 | P.PN ---
<Elvin Kennedy Joel - Last Filed: 07/16/17 08:42> Subjective Progress Note Date: 07/16/17 Principal diagnosis: Severe aortic valve stenosis. Coronary artery disease. Type 2 diabetes mellitus with preoperative hemoglobin A1c 6.1%. Hyperlipidemia. Hypertension. Osteoarthritis. Hyperthyroidism. History of basal cell skin cancer. Obesity. Current tobacco dependence. Family history of heart disease. POD #6 elective aortic valve replacement using 21 mm Szymanski magna ease bioprosthetic tissue valve. Coronary artery bypass grafting 1 vessel, a reverse greater saphenous vein graft to obtuse marginal artery. Endoscopic vein harvesting right greater saphenous vein. Epi-aortic ultrasound. Intraoperative transesophageal echocardiogram. Clipping of left atrial appendage using a 35 mm Atriclip. Postoperative atrial fibrillation an expected outcome of surgery. Left pleural effusion and expected post surgical condition. Patient is currently sitting up to the bedside chair and is in no acute distress. Episodes of confusion this a.m. Denies complaints of pain at this time. She reports she walked in the hallway to the window and back 1 yesterday , and tolerated the walks well. After the patient was seen and examined she did have a fall in the bathroom as she tried to get up on her own. She reports she did not hit her head, she denies any complaints of pain at this time. Objective - Vital Signs Vital signs: Vital Signs Temp 98.6 F 07/16/17 04:00 Pulse 85 07/16/17 04:00 Resp 18 07/16/17 04:00 BP 156/69 07/16/17 04:00 Pulse Ox 95 07/16/17 04:00 Intake & Output 07/15/17 07/16/17 07/16/17 18:59 06:59 18:59 Intake Total 1310 345 Output Total 400 Balance 1310 -55 Weight 81.2 kg 78.8 kg Intake: IV 180 Lactated Ringers 1,000 ml 180 @ 20 mls/hr IV .Q24H [facility] Rx#:[id number] Intake, IV Titration 650 Amount Amiodarone 450 mg In 50 Dextrose 5% in Water 250 ml @ 1 MG/MIN 33.33 mls/ hr IV .Q7H31M [facility] Rx#: [id number] Calcium Gluconate 2,000 100 mg In Sodium Chloride 0.9 % 100 ml @ 100 mls/hr IVPB ONCE ONE Rx#: [id number] Dextrose 5% in Water 100 100 ml @ 618 mls/hr IV .Q10M ONE with Amiodarone 150 mg Rx#:[id number] Dextrose 5% in Water 100 100 ml @ 618 mls/hr IV .Q10M ONE with Amiodarone 150 mg Rx#:[id number] Magnesium Sulfate-D5w Pmx 300 1 gm In Dextrose/Water 1 100ml.bag @ 100 mls/hr IVPB Q1H [facility] Rx#: [id number] Oral 480 345 Output: Urine 400 Other: Voiding Method Toilet Toilet # Voids 1 # Bowel Movements 1 1 ABP, PAP, CO, CI - Last Documented Arterial Blood Pressure 139/56 Pulmonary Artery Pressure 32/14 Cardiac Output 5 Cardiac Index 3.0 - Constitutional General appearance: Present: cooperative, no acute distress, obese - EENT ENT: Present: hearing grossly normal - Neck Details: No JVD, no lymphadenopathy. - Respiratory Details: Lungs sounds essentially clear throughout, diminished her bilateral bases with few scattered crackles. Oxygen saturation is 96% on room air. She is achieving 750 mL on her incentive spirometry. - Cardiovascular Details: Irregular rhythm with controlled rate. S1 and S2 present, negative for S3, gallop or murmur. Sternum is stable. Heart hugger is in place and she is demonstrating appropriate use. Pk wraps from toes to thigh to bilateral lower extremities, knee high SCD devices in place to her bilateral lower extremities. +2 edema to her left arm, ultrasound completed of her left arm yesterday was negative for DVT. +2 edema to her bilateral feet. Remote telemetry showing atrial fibrillation heart rate 88. - Gastrointestinal Gastrointestinal Comment(s): Abdomen is soft, nontender and nondistended. Bowel movement this a.m. She is tolerating oral intake. Positive bowel sounds to all 4 abdominal quadrants. - Genitourinary Genitourinary Comment(s): Clear yellow urine, getting up to the bathroom with assistance. - Integumentary Integumentary Comment(s): Midline sternal incision clean dry and well approximated. No drainage noted. Dermabond dressing is clean dry and intact. Right lower extremity EVH site clean dry and intact. No drainage noted. Left anterior hand with large skin tear. - Musculoskeletal Musculoskeletal: Present: generalized weakness, strength equal bilaterally - Psychiatric Psychiatric Comment(s): Patient with episodes of confusion this a.m. Psychiatric: Present: A&O x's 3 (With periods of confusion.), appropriate affect - Allied health notes Allied health notes reviewed: nursing - Labs CBC & Chem 7: 07/16/17 05:54 07/16/17 05:54 Labs: Abnormal Lab Results - Last 24 Hours (Table) 07/15/17 07/15/17 07/15/17 Range/Units 11:35 16:54 20:44 RBC (3.80-5.40) m/uL Hgb (11.4-16.0) gm/dL Hct (34.0-46.0) % INR (<1.2) Sodium (137-145) mmol/L Chloride (98-107) mmol/L Glucose (74-99) mg/dL POC Glucose (mg/dL) 169 H 163 H 128 H (75-99) mg/dL Calcium (8.4-10.2) mg/dL 07/16/17 07/16/17 07/16/17 Range/Units 01:49 05:54 05:54 RBC (3.80-5.40) m/uL Hgb (11.4-16.0) gm/dL Hct (34.0-46.0) % INR 1.2 H (<1.2) Sodium 130 L (137-145) mmol/L Chloride 96 L (98-107) mmol/L Glucose 146 H (74-99) mg/dL POC Glucose (mg/dL) 139 H (75-99) mg/dL Calcium 8.2 L (8.4-10.2) mg/dL 07/16/17 07/16/17 07/16/17 Range/Units 05:54 06:33 08:10 RBC 2.99 L (3.80-5.40) m/uL Hgb 8.7 L (11.4-16.0) gm/dL Hct 26.2 L (34.0-46.0) % INR (<1.2) Sodium (137-145) mmol/L Chloride (98-107) mmol/L Glucose (74-99) mg/dL POC Glucose (mg/dL) 152 H 201 H (75-99) mg/dL Calcium (8.4-10.2) mg/dL - Imaging and Cardiology Chest x-ray: report reviewed, image reviewed Assessment and Plan (1) Family history of coronary artery disease Status: Acute (2) History of basal cell carcinoma Status: Acute (3) Hyperthyroidism Status: Acute (4) Osteoarthritis Status: Acute (5) Severe aortic stenosis Status: Acute (6) Coronary artery disease Status: Acute (7) Diabetes mellitus, type II Status: Acute (8) Hyperlipidemia Status: Acute (9) Hypertension Status: Acute (10) Obesity (BMI 30.0-34.9) Status: Acute (11) Tobacco dependence Status: Acute (12) Paroxysmal atrial fibrillation Status: Acute (13) Postoperative anemia due to acute blood loss Status: Acute Plan: 1. Continue aspirin, statin, Plavix, heparin subcu, beta berta. Continue Metoprolol 75 mg by mouth twice a day. 2. Encourage incentive spirometer use every hour while awake. 3. Continue Amiodarone 400 mg by mouth twice a day.. 4. Increase activity, ambulate in hallway. Physical therapy and cardiac rehab following. 5. GI for/DVT prophylaxis. 6. Will monitor daily labs, x-rays. 7. Insulin management per primary care service. 8. Magnesium replaced per protocol. 9. Ultrasound of left upper negative for DVT. 10. Coumadin will be dosed per PT and INR results. 11. 1500 mL fluid restriction as sodium is 130. 12. More recommendations as patient progresses. 13. Discharge planning in progress. Will need subacute rehab at discharge. Possible discharge in the next 24-48 hours. Time with Patient: Greater than 30 <Nathaniel Odonnell - Last Filed: 07/16/17 12:55> Objective - Vital Signs Vital signs: Vital Signs Temp 98.6 F 07/16/17 04:00 Pulse 98 07/16/17 12:00 Resp 16 07/16/17 08:00 BP 174/69 07/16/17 08:00 Pulse Ox 98 07/16/17 08:00 Intake & Output 07/15/17 07/16/17 07/16/17 18:59 06:59 18:59 Intake Total 1310 345 Output Total 400 Balance 1310 -55 Weight 81.2 kg 78.8 kg Intake: IV 180 Lactated Ringers 1,000 ml 180 @ 20 mls/hr IV .Q24H [facility] Rx#:[id number] Intake, IV Titration 650 Amount Amiodarone 450 mg In 50 Dextrose 5% in Water 250 ml @ 1 MG/MIN 33.33 mls/ hr IV .Q7H31M [facility] Rx#: [id number] Calcium Gluconate 2,000 100 mg In Sodium Chloride 0.9 % 100 ml @ 100 mls/hr IVPB ONCE ONE Rx#: [id number] Dextrose 5% in Water 100 100 ml @ 618 mls/hr IV .Q10M ONE with Amiodarone 150 mg Rx#:[id number] Dextrose 5% in Water 100 100 ml @ 618 mls/hr IV .Q10M ONE with Amiodarone 150 mg Rx#:[id number] Magnesium Sulfate-D5w Pmx 300 1 gm In Dextrose/Water 1 100ml.bag @ 100 mls/hr IVPB Q1H [facility] Rx#: [id number] Oral 480 345 Output: Urine 400 Other: Voiding Method Toilet Toilet Toilet # Voids 1 # Bowel Movements 1 1 ABP, PAP, CO, CI - Last Documented Arterial Blood Pressure 139/56 Pulmonary Artery Pressure 32/14 Cardiac Output 5 Cardiac Index 3.0 - Labs CBC & Chem 7: 07/16/17 05:54 07/16/17 05:54 Labs: Abnormal Lab Results - Last 24 Hours (Table) 07/15/17 07/15/17 07/16/17 Range/Units 16:54 20:44 01:49 RBC (3.80-5.40) m/uL Hgb (11.4-16.0) gm/dL Hct (34.0-46.0) % INR (<1.2) Sodium (137-145) mmol/L Chloride (98-107) mmol/L Glucose (74-99) mg/dL POC Glucose (mg/dL) 163 H 128 H 139 H (75-99) mg/dL Calcium (8.4-10.2) mg/dL 07/16/17 07/16/17 07/16/17 Range/Units 05:54 05:54 05:54 RBC 2.99 L (3.80-5.40) m/uL Hgb 8.7 L (11.4-16.0) gm/dL Hct 26.2 L (34.0-46.0) % INR 1.2 H (<1.2) Sodium 130 L (137-145) mmol/L Chloride 96 L (98-107) mmol/L Glucose 146 H (74-99) mg/dL POC Glucose (mg/dL) (75-99) mg/dL Calcium 8.2 L (8.4-10.2) mg/dL 07/16/17 07/16/17 07/16/17 Range/Units 06:33 08:10 11:29 RBC (3.80-5.40) m/uL Hgb (11.4-16.0) gm/dL Hct (34.0-46.0) % INR (<1.2) Sodium (137-145) mmol/L Chloride (98-107) mmol/L Glucose (74-99) mg/dL POC Glucose (mg/dL) 152 H 201 H 169 H (75-99) mg/dL Calcium (8.4-10.2) mg/dL Assessment and Plan Plan: The patient was seen and examined. I agree with the above assessment and plan. She has had intermittent episodes of rate controlled atrial fibrillation. She is currently on both a beta berta and oral amiodarone. We will discuss with cardiology regarding any additional recommendations. She was started on Coumadin yesterday. Her Plavix will be discontinued. Otherwise she'll continue to ambulate with assistance. She remains on Lasix. She will likely be discharged to subacute rehab within the next 24 hours.
[2017-07-16] MEDS ORDERED: FUROSEMIDE 20 MG TAB PO SCH (09:00)
[2017-07-16] MEDS ORDERED: ASPIRIN 81 MG PO SCH (09:00)
[2017-07-16] MEDS: MAGNESIUM SULFATE-D5W PMX 1 GM in DEXTROSE/WATER 1 100ML.BAG IVPB SCH ×2 (11:08→11:11)
[2017-07-16] MEDS: MULTIVITAMINS, THERA 1 EACH TAB PO SCH (11:10)
[2017-07-16] MEDS: CHOLECALCIFEROL 1,000 UNIT TAB PO SCH (11:10)
[2017-07-16 11:52] LABS: Glucose,Whole Blood 169 mg/dL (75-99)
[2017-07-16 11:59] VITALS: RESP 16
--- NOTE | 2017-07-16 12:48 | P.PN ---
<Noemy Sheth - Last Filed: 07/16/17 12:42> Subjective Progress Note Date: 07/16/17 Principal diagnosis: Severe aortic stenosis, status post aortic valve replacement. Coronary disease status post coronary artery bypass graft times one. This is a very pleasant 72-year-old female patient who follows with Dr. Howard Glover as her primary care physician. She has a history of diabetes mellitus, hypertension, hyperlipidemia, osteoarthritis, coronary artery disease and known severe aortic stenosis. She presented here yesterday for an elective surgery. She is now status post aortic valve replacement utilizing a 21 mm Szymanski magna ease bioprosthetic tissue valve along with coronary artery bypass grafting utilizing a saphenous vein graft to the obtuse marginal artery. This is postoperative day #1. Seen in consultation in the intensive care unit. She was successfully extubated and is maintaining good O2 saturations in the 90s on 6 L/m per nasal cannula. 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 She is on insulin drip at 2.5 units per hour. Lactated Ringer's at 50 MLS per hour. He is currently sitting up in a chair at the bedside. She is awake and alert in no acute distress. Her surgical pain is well controlled. She is working well with the incentive spirometer and cough and deep breathing exercises. X-ray does reveal small bilateral effusions and some basilar atelectasis. Right pleural and mediastinal chest tubes remain in place. Marion- Eriberto catheter is been removed. Pacing wires remain in place with a VVI mode with backup at 50. The patient is seen again today 07/13/2017 in follow-up on the selective care unit. This is postoperative day #4. She is presently sitting up in the chair at the bedside. She is awake and alert in no acute distress. Her chest tubes have been removed. Today's chest x-ray revealed cardiomegaly with residual mild pulmonary vascular congestion. There is a small left pleural effusion. Focal opacity in the right midlung remains unchanged. She is maintaining good O2 saturations in the 90s on room air. Afebrile. She's been hemodynamically stable. Hemoglobin 9.3. Patient is seen again today 07/14/2017 in follow-up on the selective care unit. This is postoperative day #5. She is currently sitting up in a chair at the bedside. She is awake and alert in no acute distress. Today's chest x-ray reveals improved aeration of the right base. There is still some atelectasis in the left lung base. Small bilateral pleural effusions left greater than right. Small right apical pneumothorax is stable. She denies any worsening shortness of breath, cough or congestion. She is maintaining good O2 saturations in the mid upper 90s on room air. She remains afebrile. No leukocytosis. Hemoglobin 9.2. She did have some issues with hypoglycemia and intermittent atrial fibrillation with varying ventricular response. Cardiology is on the case as well. On 07/15/2017 I'm seeing this patient for a follow-up. The patient is still in atrial fibrillation. She has completed amiodarone loading dose. She is not on anticoagulants yet. However the plan is to start this patient on warfarin today and a dose of 7.5 mg will be given to her tonight. She has no specific complaints. Her blood sugars have improved and there are no hypoglycemic events as the patient was taken off the insulin long-acting and the patient was switched to oral hypoglycemics. She is on a Humalog sliding scale coverage in addition. From the pulmonary standpoint, the sternal wound is dry clean and intact which is not having any major respiratory difficulties. Her atrial fibrillation is in a controlled rate at this point. She was switched to oral amiodarone 400 mg by mouth twice a day. She is also on metoprolol 75 mg by mouth twice a day. The patient is seen again today 07/16/2017 in follow-up on the selective care unit. She is awake and alert in no acute distress. She did have some issues with confusion today. She attempted to be up to the bathroom and had a fall. She had some abrasion to her left hand and bruising on the left knee but no other injuries. Currently she is resting quite comfortably in bed. A sitter is at the bedside now. She denies any worsening shortness of breath, cough or congestion. No chest pain or palpitations. Her surgical pain is well controlled. Her heart rate is well controlled. Objective - Vital Signs Vital signs: Vital Signs Temp 98.6 F 07/16/17 04:00 Pulse 98 07/16/17 12:00 Resp 16 07/16/17 08:00 BP 174/69 07/16/17 08:00 Pulse Ox 98 07/16/17 08:00 Intake & Output 07/15/17 07/16/17 07/16/17 18:59 06:59 18:59 Intake Total 1310 345 Output Total 400 Balance 1310 -55 Weight 81.2 kg 78.8 kg Intake: IV 180 Lactated Ringers 1,000 ml 180 @ 20 mls/hr IV .Q24H [facility] Rx#:[id number] Intake, IV Titration 650 Amount Amiodarone 450 mg In 50 Dextrose 5% in Water 250 ml @ 1 MG/MIN 33.33 mls/ hr IV .Q7H31M [facility] Rx#: [id number] Calcium Gluconate 2,000 100 mg In Sodium Chloride 0.9 % 100 ml @ 100 mls/hr IVPB ONCE ONE Rx#: [id number] Dextrose 5% in Water 100 100 ml @ 618 mls/hr IV .Q10M ONE with Amiodarone 150 mg Rx#:[id number] Dextrose 5% in Water 100 100 ml @ 618 mls/hr IV .Q10M ONE with Amiodarone 150 mg Rx#:[id number] Magnesium Sulfate-D5w Pmx 300 1 gm In Dextrose/Water 1 100ml.bag @ 100 mls/hr IVPB Q1H [facility] Rx#: [id number] Oral 480 345 Output: Urine 400 Other: Voiding Method Toilet Toilet Toilet # Voids 1 # Bowel Movements 1 1 ABP, PAP, CO, CI - Last Documented Arterial Blood Pressure 139/56 Pulmonary Artery Pressure 32/14 Cardiac Output 5 Cardiac Index 3.0 - Exam GENERAL EXAM: Alert, active, comfortable in no apparent distress. HEAD: Normocephalic. EYES: Normal reaction of pupils, equal size. NOSE: Clear with pink turbinates. THROAT: No erythema or exudates. NECK: No masses, no JVD. CHEST: Sternal dressing dry and intact. LUNGS: Equal air entry with crackles in the posterior bases. CVS: S1 and S2 normal with no audible murmurs, irregular rhythm. ABDOMEN: No hepatosplenomegaly, hypoactive bowel sounds, no guarding or rigidity. SPINE: No scoliosis or deformity SKIN: No rashes CENTRAL NERVOUS SYSTEM: No focal deficits, tone is normal in all 4 extremities. Extremities: There is trace peripheral edema. No clubbing, no cyanosis. Peripheral pulses are intact. - Labs CBC & Chem 7: 07/16/17 05:54 07/16/17 05:54 Labs: Abnormal Lab Results - Last 24 Hours (Table) 07/15/17 07/15/17 07/16/17 Range/Units 16:54 20:44 01:49 RBC (3.80-5.40) m/uL Hgb (11.4-16.0) gm/dL Hct (34.0-46.0) % INR (<1.2) Sodium (137-145) mmol/L Chloride (98-107) mmol/L Glucose (74-99) mg/dL POC Glucose (mg/dL) 163 H 128 H 139 H (75-99) mg/dL Calcium (8.4-10.2) mg/dL 07/16/17 07/16/17 07/16/17 Range/Units 05:54 05:54 05:54 RBC 2.99 L (3.80-5.40) m/uL Hgb 8.7 L (11.4-16.0) gm/dL Hct 26.2 L (34.0-46.0) % INR 1.2 H (<1.2) Sodium 130 L (137-145) mmol/L Chloride 96 L (98-107) mmol/L Glucose 146 H (74-99) mg/dL POC Glucose (mg/dL) (75-99) mg/dL Calcium 8.2 L (8.4-10.2) mg/dL 07/16/17 07/16/17 07/16/17 Range/Units 06:33 08:10 11:29 RBC (3.80-5.40) m/uL Hgb (11.4-16.0) gm/dL Hct (34.0-46.0) % INR (<1.2) Sodium (137-145) mmol/L Chloride (98-107) mmol/L Glucose (74-99) mg/dL POC Glucose (mg/dL) 152 H 201 H 169 H (75-99) mg/dL Calcium (8.4-10.2) mg/dL Assessment and Plan Plan: Impression: #1 Severe aortic stenosis status post aortic valve replacement utilizing a 21 mm Szymanski magna ease bioprosthetic tissue valve. Postoperative day #7. #2 Coronary artery disease status post coronary artery bypass grafting utilizing a saphenous vein graft to the obtuse marginal branch. Postoperative day # is 1 7. #3 Diabetes mellitus with episodes of hypoglycemia. #4 Hyperlipidemia. #5 Hypertension. #6 Osteoarthritis. #7 History of basal cell carcinoma. #8 Chronic and ongoing tobacco dependence. #9 New-onset atrial fibrillation #10 Anemia, current hemoglobin 9.2. Plan: The patient was seen and evaluated by Dr. Abbasi. She is currently stable from the pulmonary standpoint. She is encouraged again regarding the increased use of the incentive spirometer and cough and deep breathing exercises. She is again encouraged regarding the importance of complete smoking cessation. We'll continue with bronchodilators. She remains on heparin subcutaneous for DVT prophylaxis. Protonix for GI prophylaxis. Cardiology is on the case regarding the atrial fibrillation. The plan is for transfer to an extended care facility for continued inpatient rehabilitation once cleared medically. <Ruby Abbasi - Last Filed: 07/16/17 13:01> Objective - Vital Signs Vital signs: Vital Signs Temp 98.6 F 07/16/17 04:00 Pulse 98 07/16/17 12:00 Resp 16 07/16/17 08:00 BP 174/69 07/16/17 08:00 Pulse Ox 98 07/16/17 08:00 Intake & Output 07/15/17 07/16/17 07/16/17 18:59 06:59 18:59 Intake Total 1310 345 Output Total 400 Balance 1310 -55 Weight 81.2 kg 78.8 kg Intake: IV 180 Lactated Ringers 1,000 ml 180 @ 20 mls/hr IV .Q24H [facility] Rx#:[id number] Intake, IV Titration 650 Amount Amiodarone 450 mg In 50 Dextrose 5% in Water 250 ml @ 1 MG/MIN 33.33 mls/ hr IV .Q7H31M [facility] Rx#: [id number] Calcium Gluconate 2,000 100 mg In Sodium Chloride 0.9 % 100 ml @ 100 mls/hr IVPB ONCE ONE Rx#: [id number] Dextrose 5% in Water 100 100 ml @ 618 mls/hr IV .Q10M ONE with Amiodarone 150 mg Rx#:[id number] Dextrose 5% in Water 100 100 ml @ 618 mls/hr IV .Q10M ONE with Amiodarone 150 mg Rx#:[id number] Magnesium Sulfate-D5w Pmx 300 1 gm In Dextrose/Water 1 100ml.bag @ 100 mls/hr IVPB Q1H [facility] Rx#: [id number] Oral 480 345 Output: Urine 400 Other: Voiding Method Toilet Toilet Toilet # Voids 1 # Bowel Movements 1 1 ABP, PAP, CO, CI - Last Documented Arterial Blood Pressure 139/56 Pulmonary Artery Pressure 32/14 Cardiac Output 5 Cardiac Index 3.0 - Labs CBC & Chem 7: 07/16/17 05:54 07/16/17 05:54 Labs: Abnormal Lab Results - Last 24 Hours (Table) 07/15/17 07/15/17 07/16/17 Range/Units 16:54 20:44 01:49 RBC (3.80-5.40) m/uL Hgb (11.4-16.0) gm/dL Hct (34.0-46.0) % INR (<1.2) Sodium (137-145) mmol/L Chloride (98-107) mmol/L Glucose (74-99) mg/dL POC Glucose (mg/dL) 163 H 128 H 139 H (75-99) mg/dL Calcium (8.4-10.2) mg/dL 07/16/17 07/16/17 07/16/17 Range/Units 05:54 05:54 05:54 RBC 2.99 L (3.80-5.40) m/uL Hgb 8.7 L (11.4-16.0) gm/dL Hct 26.2 L (34.0-46.0) % INR 1.2 H (<1.2) Sodium 130 L (137-145) mmol/L Chloride 96 L (98-107) mmol/L Glucose 146 H (74-99) mg/dL POC Glucose (mg/dL) (75-99) mg/dL Calcium 8.2 L (8.4-10.2) mg/dL 07/16/17 07/16/17 07/16/17 Range/Units 06:33 08:10 11:29 RBC (3.80-5.40) m/uL Hgb (11.4-16.0) gm/dL Hct (34.0-46.0) % INR (<1.2) Sodium (137-145) mmol/L Chloride (98-107) mmol/L Glucose (74-99) mg/dL POC Glucose (mg/dL) 152 H 201 H 169 H (75-99) mg/dL Calcium (8.4-10.2) mg/dL Assessment and Plan Plan: I do a test of the information mentioned above. This is a joint evaluation was done along with the nurse practitioner. We noted that events that occurred yesterday. The patient had a limited fall without any injuries or fractures. She has a sitter at the bedside. She is doing well. I was told that she was at times goofy and confused however I did not notice that. I felt that she was very much appropriate. She is a bit weak and she may need help to get around especially going back and forth to the bathroom. Her cardiac rhythm is sinus. She is on Coumadin and her INR today is subtherapeutic. Hemoglobin is at 8.7 and stable. Surgical wound sites of dry clean and intact. We are looking for an ECF transfer this patient at a later stage.
[2017-07-16 14:08] VITALS: BP 127/77; PULSE 75
--- NOTE | 2017-07-16 14:12 | P.DS ---
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 Do you want consulting provider notified?: Yes Consult Physician Routine Consulting Provider: Selwyn Church Consult Reason/Comments: medical management Do you want consulting provider notified?: Yes Consult Physician Routine Consulting Provider: Ozzie Addison Consult Reason/Comments: Manager Medicare Consult: post cardiac surgery Do you want consulting provider notified?: Yes Primary care physician: Howard Glover - Discharge Diagnosis(es) (1) Family history of coronary artery disease Current Visit: Yes Status: Acute (2) History of basal cell carcinoma Current Visit: Yes Status: Acute (3) Hyperthyroidism Current Visit: Yes Status: Acute (4) Osteoarthritis Current Visit: Yes Status: Acute (5) Severe aortic stenosis Current Visit: Yes Status: Acute (6) Coronary artery disease Current Visit: No Status: Acute (7) Diabetes mellitus, type II Current Visit: No Status: Acute (8) Hyperlipidemia Current Visit: No Status: Acute (9) Hypertension Current Visit: No Status: Acute (10) Obesity (BMI 30.0-34.9) Current Visit: No Status: Acute (11) Tobacco dependence Current Visit: No Status: Acute (12) Paroxysmal atrial fibrillation Current Visit: Yes Status: Acute (13) Postoperative anemia due to acute blood loss Current Visit: Yes Status: Acute Hospital Course: FINAL DIAGNOSIS: 1. Severe aortic valve stenosis 2. Coronary artery disease 3. Hypertension 4. Hyperlipidemia 5. Hyperthyroidism 6. Type 2 diabetes mellitus with preoperative hemoglobin A1c of 6.1%. 7. Osteoarthritis 8. History of basal cell skin cancer 9. Current tobacco dependence 10. Family history of heart disease 11. Postoperative paroxysmal atrial fibrillation and expected outcome of surgery 12. Left pleural effusion an expected post surgical condition PRINCIPAL PROCEDURE: 1. Elective aortic valve replacement using a #21 mm Szymanski magna ease bioprosthetic tissue valve 2. Coronary artery bypass grafting 1 vessel, a reverse greater saphenous vein graft placed to her obtuse marginal coronary artery. 3. Epi-aortic ultrasound 4. Intraoperative transesophageal echocardiogram. 5. Endoscopic vein harvest of her right greater saphenous vein. 6. Clipping of the left atrial appendage using a #35 mm atria clip. HISTORY OF PRESENT ILLNESS: This a 72-year-old female patient who is followed by Dr. Howard Glover on an outpatient basis. Patient has a history of multiple medical problems including hypertension, hyperlipidemia, hyperthyroidism, type 2 diabetes mellitus, and current tobacco dependence. Recently, she has been having complaints of exertional dyspnea which has progressively been getting worse. Her routine exam she was found to have a significant heart murmur which subsequently she underwent further workup. She underwent a 2-D echocardiogram which showed normal LV function with basal septal hypertrophy and evidence of severe aortic stenosis with a mean gradient of 40 mmHg. For further evaluation the patient underwent a heart catheterization and transesophageal echocardiogram. Transesophageal cardiogram showed her to have severe aortic stenosis with her aortic valve area less than 1 cm and a mean gradient of 40 mmHg. Also showed normal left ventricular dimension and systolic function with an ejection fraction of about 65%. Her heart catheterization demonstrated mild disease involving the right coronary artery, severe disease involving the proximal left circumflex coronary artery with a 60-70% stenosis to her proximal circumflex, and mild disease involving the left anterior descending coronary artery. Due to the patient's symptoms and above-mentioned study results Dr. Patel from cardiothoracic surgery was asked to see the patient. Her transesophageal echocardiogram and cardiac catheterization results were reviewed with the patient with treatment options discussed with the patient by Dr. Patel. The patient was found to be a surgical candidate and elective coronary artery bypass grafting surgery and aortic valve replacement was offered to the patient. HOSPITAL COURSE: The patient was made to the hospital and after obtaining consent she was taken to the operating room where Dr. Odonnell performed an elective aortic valve replacement using a #21 mm Szymanski magna ease bioprosthetic tissue valve, coronary artery bypass grafting 1 vessel, a reverse greater saphenous vein graft placed to her obtuse marginal coronary artery, endoscopic vein harvesting of right greater saphenous vein, intraoperative transesophageal echocardiogram, epi-aortic ultrasound and clipping of the left atrial appendage using a #35 mm atria clip. The patient was subsequent transferred to the cardiovascular intensive care unit where she was recovered, monitored hemodynamically, and where she progressed to cardiac rehabilitation phase 1. Subsequently she was extubated, her invasive lines and hemodynamic drips were discontinued and she was transferred to [address] [place] [address] for further monitoring and cardiac rehabilitation. While on the [facility] should the patient did develop some postoperative paroxysmal atrial fibrillation which was treated accordingly. She has received written and verbal instructions regarding her medications, activity restrictions, signs and symptoms requiring positional location and follow-up appointments. The patient will be discharged today to [facility] for further rehabilitation needs. COMPLICATIONS: Her postoperative period was complicated by some postoperative paroxysmal atrial fibrillation which was treated accordingly. CONSULTATIONS: 1. Dr. Bedoya for cardiology management. 2. Dr. Church for medical management. 3. Dr. Abbasi for pulmonary and ventilator management. DISCHARGE INSTRUCTIONS: 1. No driving for 4 weeks, or until physician gives their ok. 2. The patient should sleep in their own bed, no medical bed needed. 3. Stairs are not an issue. If the bedroom is upstairs, it is advised that the patient go up at night and down in the morning for the first week. Go slowly, using handrail and take 1 step at a time. 4. MARY hose are to be worn for 30 days or until physician discontinues. 5. Heart hugger is to be worn 100% of the time until physician discontinues.( except when showering) 6. No lifting, pushing, or pulling more than 10 pounds for 12 weeks. The physician will advise of any restriction changes. 7. The patient is expected to continue the prescribed walking program. 8. Continue pain control per as needed orders. 9. Continue with incentive spirometry and splinting/heart hugger until otherwise directed by the physician. 10. Must shower daily using liquid antibacterial soap and a separate white washcloth for each individual incision. 11. Routine sternal incision care, no ointments, lotions or powders on the incisions. 12. Please notify surgeon/nurse practitioner for temperature greater than 101F or purulent drainage from incisions 13. Prescriptions for first 30 days given per cardiac surgery service. After 30 days, all prescription refills obtained through cardiology/primary care physician. 14. A red arm and has been placed on this patient and it should be worn for 30 days post surgery and will be removed by the cardiothoracic surgeons. If an ER visit is necessary, please make sure the number on the red arm band is called. SENIOR CARE TO PROVIDE: RN SKILLED HOME CARE SERVICES FOR POST-OP SURGICAL PATIENTS WITH THE FOLLOWING: Coronary Artery Bypass Surgery (CABG), Mitral Valve Replacement/ Repair ( MVR), Aortic Valve Replacement/Repair (AVR) RN TO CONTINUE EDUCATION FROM ``ROAD TO A HEALTH HEART PATIENT EDUCATION MANUAL" (GIVEN TO PATIENT IN THE HOSPITAL) MEDICATION RECONCILIATION WITH EDUCATION NEEDED ON FIRST HOME VISIT EMPHASIZE IMPORTANCE OF WEARING BREAST SUPPORT/HEART HUGGER ENCOURAGE USE OF INCENTIVE SPIROMETER 10 X EVERY HOUR WHILE AWAKE ENCOURAGE UTILIZATION OF LOWER EXTREMITY COMPRESSION STOCKINGS/MARY HOSE and ELEVATE LEGS ABOVE LEVEL OF HEART WHILE AT REST. ENCOURAGE AMBULATION 3-5x/day INCREASING TOLERATES, WHILE AVOID EXTREMES IN TEMPERATURE FREQUENCY: RN TO OPEN THE PATIENT WITHIN 24 HOURS OF DISCHARGE FROM THE HOSPITAL WITH TELEHEALTH INSTALLED AT [facility], RN TO VISIT 2-3 X A WEEK FOR 4 WEEKS ESTABLISHED BY PATIENT NEEDS. REMOVAL OF SUTURES: NURSING SERVICES TO REMOVE SUTURES TWO WEEKS POST SURGICAL DATE [ default ]. If any questions regarding suture removal please call the office at [phone]. LABORATORY: CBC, CMP TO BE DRAWN ON THE THIRD DAY HOME, 07/19/2017 (RAN STAT) FAX RESULTS TO [phone]. Daily PT and INR to be drawn daily until Coumadin is therapeutic and results called to Dr. Bedoya's office at [phone] for Coumadin dosing. TELEHEALTH PARAMETERS: WEIGHT: NOTIFY MD OF WEIGHT GAIN OF 2 LBS IN 24 HOURS OR 5 LBS IN ONE WEEK HR: NOTIFY MD OF HR <55 BPM OR HR>100 BPM BP: NOTIFY MD IF BP <90/55 OR BP>140/100 O2 SAT: NOTIFY MD IF PO2<93% ON ROOM AIR SEND TELEHEALTH REPORT TO COMMERCIAL REAL ESTATE ASSISTANT AND CARDIOVASCULAR SURGEON THE FIRST WEEK OF CARE AND THEN BI-WEEKLY. PLEASE ADDITIONALLY COMMUNICATE ANY ABNORMALS AND NEW FINDINGS TO THE SURGEONS OFFICE. Plan - Discharge Summary New Discharge Prescriptions: No Action Multivitamins, Thera [Multivitamin (formulary)] 1 tab PO DAILY Pravastatin Sodium [Pravachol] 40 mg PO HS Methimazole [Tapazole] 10 mg PO DAILY Meloxicam 15 mg PO DAILY Furosemide [Lasix] 20 mg PO QAM Omeprazole 20 mg PO QAM Metoprolol Succinate [Toprol XL] 50 mg PO HS Krill/Om-3/Dha/Epa/Phospho/Ast [[place]-3 Krill Oil 300 mg Sfgl] 1 cap PO DAILY Cholecalciferol (Vitamin D3) [Vitamin D3] 2,000 unit PO DAILY Alendronate Sodium 70 mg PO FR sitaGLIPtin [Januvia] 100 mg PO DAILY Budesonide-Formot 160-4.5 Mcg [Symbicort 160-4.5 Mcg Inhaler] 2 puff INHALATION RT-BID PRN PRN Reason: Shortness Of Breath Albuterol Sulfate [Proair Hfa] 1 - 2 puff INHALATION RT-Q4H PRN PRN Reason: Shortness Of Breath metFORMIN HCL [Glucophage] 1,000 mg PO BID-W/MEALS Glimepiride [Amaryl] 2 mg PO AC-BRKFST Mupirocin 2% Nasal Oint [Bactroban 2% Nasal Oint] 1 applic NASAL BID Acetaminophen [Tylenol Arthritis] 1,300 mg PO BID PRN PRN Reason: Pain Discharge Medication List Alendronate Sodium 70 mg PO FR 04/19/17 [History] Cholecalciferol (Vitamin D3) [Vitamin D3] 2,000 unit PO DAILY 04/19/17 [History] Meloxicam 15 mg PO DAILY 04/19/17 [History] Omeprazole 20 mg PO QAM 04/19/17 [History] Albuterol Sulfate [Proair Hfa] 1 - 2 puff INHALATION RT-Q4H PRN 07/01/17 [ History] Budesonide-Formot 160-4.5 Mcg [Symbicort 160-4.5 Mcg Inhaler] 2 puff INHALATION RT-BID PRN 07/01/17 [History] metFORMIN HCL [Glucophage] 1,000 mg PO BID-W/MEALS 07/01/17 [History] Acetaminophen [Tylenol Arthritis] 1,300 mg PO BID PRN 07/08/17 [History] Amiodarone [Cordarone] 400 mg PO BID tab 07/16/17 [Rx] Aspirin 81 mg PO DAILY 07/16/17 [Rx] Atorvastatin [Lipitor] 40 mg PO DAILY tab 07/16/17 [Rx] Bisacodyl [Dulcolax] 10 mg RECTAL DAILY PRN suppositor 07/16/17 [Rx] Furosemide [Lasix] 40 mg PO DAILY #7 tablet 07/16/17 [Rx] Glimepiride [Amaryl] 2 mg PO AC-BRKFST tab 07/16/17 [Rx] Linagliptin [Tradjenta] 5 mg PO DAILY tab 07/16/17 [Rx] Magnesium Hydroxide [Milk of Magnesia Concentrate] 2,400 mg PO BID PRN dose [Rx] Methimazole [Tapazole] 10 mg PO DAILY tab 07/16/17 [Rx] Metoprolol Tartrate [Lopressor] 75 mg PO BID tab 07/16/17 [Rx] Multivitamins, Thera [Multivitamin (formulary)] 1 each PO DAILY@1200 tab [Rx] Potassium Chloride ER [K-Dur 10] 10 meq PO DAILY #7 tab 07/16/17 [Rx] Sennosides-Docusate Sodium [Senokot-S] 2 each PO HS tab 07/16/17 [Rx] Warfarin Sodium [Coumadin] 5 mg PO DIRECTED #30 tablet 07/16/17 [Rx] Furosemide [Lasix] 20 mg PO QAM #0 07/24/17 [Rx] Follow up Appointment(s)/Referral(s): Eboni Moses NPC [Nurse Practitioner] - 07/19/17 12:00 pm Ozzie Addison MD [STAFF PHYSICIAN] - 07/23/17 1:45 pm Howard Glover MD [Primary Care Provider] - 07/21/17 10:30 am Nathaniel Odonnell MD [STAFF PHYSICIAN] - 08/06/17 11:00 am Ruby Abbasi MD [STAFF PHYSICIAN] - 07/28/17 1:45 pm Patient Instructions/Handouts: Aortic Valve Replacement (DC), Sternal Precautions (GEN) Discharge Disposition: TRANSFER TO SNF/ECF
--- NOTE | 2017-07-16 16:13 | P.PN ---
Subjective Progress Note Date: 07/16/17 Principal diagnosis: Status post aortic valve replacement and coronary artery bypass grafting surgery times one This is a pleasant 72-year-old female who is status post aortic valve replacement and coronary artery bypass grafting surgery times one. She's overall progressing very well, went into atrial fibrillation and was initiated on amiodarone. This morning she has converted back to normal sinus rhythm. Chest x-ray performed this morning showed improving aeration of the right base, small left greater than right pleural effusion. Blood pressure 126/58 with a heart rate in the 90s. White blood cell count 9.0, hemoglobin 9.2, sodium 135, potassium 5.3, BUN 17, creatinine 0.7. Magnesium level I.6. 07/15/2017 Patient went back into atrial fibrillation this morning, at the time of our examination, patient converted to normal sinus rhythm. Because of her multiple episodes of paroxysmal atrial fibrillation the recommendation was to initiate anticoagulation in the form of Coumadin. She will receive a dose of 7-1/2 mg of Coumadin today. Patient continues to be on a baby aspirin along with Plavix , Dr. Rogers's recommendation is that Plavix be discontinued. Overall the patient is doing well, breathing is stable, no complaints. Magnesium level I.4 which was replaced. 07/16/2017 Patient seen and examined this morning, continues to be in normal sinus rhythm this morning. In are 1.2, hemoglobin 8.7, being discharged today. She will go home on 5 mg of Coumadin daily, PT INRs will be drawn daily. A follow-up appointment will be made in the office 2 weeks post discharge. Objective - Vital Signs Vital signs: Vital Signs Temp 98.6 F 07/16/17 04:00 Pulse 75 07/16/17 12:00 Resp 16 07/16/17 12:00 BP 127/77 07/16/17 12:00 Pulse Ox 95 07/16/17 12:00 Intake & Output 07/15/17 07/16/17 07/16/17 18:59 06:59 18:59 Intake Total 1310 345 200 Output Total 400 Balance 1310 -55 200 Weight 81.2 kg 78.8 kg Intake: IV 180 Lactated Ringers 1,000 ml 180 @ 20 mls/hr IV .Q24H [facility] Rx#:[id number] Intake, IV Titration 650 Amount Amiodarone 450 mg In 50 Dextrose 5% in Water 250 ml @ 1 MG/MIN 33.33 mls/ hr IV .Q7H31M [facility] Rx#: [id number] Calcium Gluconate 2,000 100 mg In Sodium Chloride 0.9 % 100 ml @ 100 mls/hr IVPB ONCE ONE Rx#: [id number] Dextrose 5% in Water 100 100 ml @ 618 mls/hr IV .Q10M ONE with Amiodarone 150 mg Rx#:[id number] Dextrose 5% in Water 100 100 ml @ 618 mls/hr IV .Q10M ONE with Amiodarone 150 mg Rx#:[id number] Magnesium Sulfate-D5w Pmx 300 1 gm In Dextrose/Water 1 100ml.bag @ 100 mls/hr IVPB Q1H [facility] Rx#: [id number] Oral 480 345 200 Output: Urine 400 Other: Voiding Method Toilet Toilet Toilet # Voids 1 3 # Bowel Movements 1 1 2 ABP, PAP, CO, CI - Last Documented Arterial Blood Pressure 139/56 Pulmonary Artery Pressure 32/14 Cardiac Output 5 Cardiac Index 3.0 - Exam PHYSICAL EXAMINATION: HEENT: Head is atraumatic, normocephalic. Pupils equal, round. Neck is supple. There is no elevated jugular venous pressure. HEART EXAMINATION: Heart S1, S2 normal. No murmur or gallop heard. CHEST EXAMINATION: Lungs reveal diminished air entry to bilateral bases with fine crackles to the bases. ABDOMEN: Soft, nontender. Bowel sounds are heard. No organomegaly noted. EXTREMITIES:[ 2+ peripheral pulses with 1+ evidence of peripheral edema and no calf tenderness noted]. NEUROLOGIC [patient is awake, alert and oriented -3.] . - Labs CBC & Chem 7: 07/16/17 05:54 07/16/17 05:54 Labs: Abnormal Lab Results - Last 24 Hours (Table) 07/15/17 07/15/17 07/16/17 Range/Units 16:54 20:44 01:49 RBC (3.80-5.40) m/uL Hgb (11.4-16.0) gm/dL Hct (34.0-46.0) % INR (<1.2) Sodium (137-145) mmol/L Chloride (98-107) mmol/L Glucose (74-99) mg/dL POC Glucose (mg/dL) 163 H 128 H 139 H (75-99) mg/dL Calcium (8.4-10.2) mg/dL 07/16/17 07/16/17 07/16/17 Range/Units 05:54 05:54 05:54 RBC 2.99 L (3.80-5.40) m/uL Hgb 8.7 L (11.4-16.0) gm/dL Hct 26.2 L (34.0-46.0) % INR 1.2 H (<1.2) Sodium 130 L (137-145) mmol/L Chloride 96 L (98-107) mmol/L Glucose 146 H (74-99) mg/dL POC Glucose (mg/dL) (75-99) mg/dL Calcium 8.2 L (8.4-10.2) mg/dL 07/16/17 07/16/17 07/16/17 Range/Units 06:33 08:10 11:29 RBC (3.80-5.40) m/uL Hgb (11.4-16.0) gm/dL Hct (34.0-46.0) % INR (<1.2) Sodium (137-145) mmol/L Chloride (98-107) mmol/L Glucose (74-99) mg/dL POC Glucose (mg/dL) 152 H 201 H 169 H (75-99) mg/dL Calcium (8.4-10.2) mg/dL Assessment and Plan Plan: Assessment and plan 1 status post single-vessel bypass grafting surgery and aortic valve replacement #2 hypertension #3 hyperlipidemia #4 paroxysmal atrial fibrillation Plan From cardiology's perspective, patient name be able to be discharged today. She will go home on 5 mg of Coumadin daily, we'll check a PT/INR daily, follow- up appointment in 2 weeks post discharge. DNP note has been reviewed, I agree with a documented findings and plan of care. Patient was seen and examined.
[2017-07-16] MEDS ORDERED: WARFARIN 5 MG TAB PO ONE (18:00)
[2017-07-16] MEDS ORDERED: FAMOTIDINE 20 MG TAB PO SCH (21:00)
--- NOTE | 2017-07-17 01:17 | P.PN ---
Subjective Progress Note Date: 07/16/17 Principal diagnosis: Status post aortic wall replacement and single-vessel coronary bypass graft 72-year-old female was admitted to the hospital for aortic wall replacement and single-vessel coronary artery bypass graft. Patient went back to atrial fibrillation this morning and is currently in sinus rhythm. Patient was started on amiodarone and anticoagulation with Coumadin. Lasix was discontinued. Patient denied any chest pain or short of breath. No nausea vomiting abdominal pain. Patient is clinically improving. Patient does have chest soreness. No fever no chills. Participating in physical therapy. All other review of systems negative except above. 07/16/2017 Patient is maintained in sinus rhythm. No complaints of chest pain or worsening short of breath and no fever no chills. Patient is being discharged home today. Patient will be continued on anticoagulation with Coumadin due to paroxysmal atrial fibrillation. Currently maintaining sinus rhythm. Hemoglobin stable. Current medications reviewed Objective - Vital Signs Vital signs: Vital Signs Temp 98.6 F 07/16/17 04:00 Pulse 75 07/16/17 12:00 Resp 16 07/16/17 12:00 BP 127/77 07/16/17 12:00 Pulse Ox 95 07/16/17 12:00 Intake & Output 07/16/17 07/16/17 07/17/17 06:59 18:59 06:59 Intake Total 345 200 Output Total 400 Balance -55 200 Weight 78.8 kg Intake: Oral 345 200 Output: Urine 400 Other: Voiding Method Toilet Toilet # Voids 1 3 # Bowel Movements 1 2 ABP, PAP, CO, CI - Last Documented Arterial Blood Pressure 139/56 Pulmonary Artery Pressure 32/14 Cardiac Output 5 Cardiac Index 3.0 - Exam PHYSICAL EXAMINATION: Patient is lying in the bed comfortably, no acute distress, awake alert and oriented.. HEENT: Normocephalic. Neck is supple. Pupils reactive. Nostrils clear. Oral cavity is moist. Ears reveal no drainage. Neck reveals no JVD, carotid bruits, or thyromegaly. CHEST EXAMINATION: Trachea is central. Symmetrical expansion. Bibasilar diminished breath sounds and crackles positive. CARDIAC: Normal S1, S2 with no gallops. No murmurs . Sternal wound intact ABDOMEN: Soft. Bowel sounds normal. No organomegaly. No abdominal bruits. Extremities: 1+ edema. No clubbing or cyanosis Neurologically awake, alert, oriented x3 with well-coordinated movements. No focal deficits noted Skin: No rash or skin lesions. Psychiatric: Operative. Nonsuicidal Musculoskeletal: No joint swelling or deformity. Normal range of motion. - Labs CBC & Chem 7: 07/16/17 05:54 07/16/17 05:54 Labs: Abnormal Lab Results - Last 24 Hours (Table) 07/16/17 07/16/17 07/16/17 Range/Units 01:49 05:54 05:54 RBC (3.80-5.40) m/uL Hgb (11.4-16.0) gm/dL Hct (34.0-46.0) % INR 1.2 H (<1.2) Sodium 130 L (137-145) mmol/L Chloride 96 L (98-107) mmol/L Glucose 146 H (74-99) mg/dL POC Glucose (mg/dL) 139 H (75-99) mg/dL Calcium 8.2 L (8.4-10.2) mg/dL 07/16/17 07/16/17 07/16/17 Range/Units 05:54 06:33 08:10 RBC 2.99 L (3.80-5.40) m/uL Hgb 8.7 L (11.4-16.0) gm/dL Hct 26.2 L (34.0-46.0) % INR (<1.2) Sodium (137-145) mmol/L Chloride (98-107) mmol/L Glucose (74-99) mg/dL POC Glucose (mg/dL) 152 H 201 H (75-99) mg/dL Calcium (8.4-10.2) mg/dL 07/16/17 Range/Units 11:29 RBC (3.80-5.40) m/uL Hgb (11.4-16.0) gm/dL Hct (34.0-46.0) % INR (<1.2) Sodium (137-145) mmol/L Chloride (98-107) mmol/L Glucose (74-99) mg/dL POC Glucose (mg/dL) 169 H (75-99) mg/dL Calcium (8.4-10.2) mg/dL Assessment and Plan Plan: #1 severe aortic stenosis status post aortic valve replacement #2 coronary artery disease status post single-vessel bypass graft #3 new onset paroxysmal atrial fibrillation. Currently in sinus rhythm. #3 diabetes type 2 [id number] #4 hypertension #5 hyperlipidemia #6 osteoarthritis #7 anemia possibly acute blood loss. Hemoglobin 9.3-8.6. Monitor H&H Plan: Patient was found to be in atrial fibrillation this morning. Converted back to sinus rhythm. Due to multiple episodes of a fibrillation patient was given amiodarone while in hospital and anticoagulation with Coumadin to be continued. Plavix was discontinued and continued on aspirin. Continue with incentive spirometry. Blood sugar control. Continue blood pressure medications. Further recommendations based on the clinical course. Patient is being discharged today.
--- NOTE | 2017-08-01 23:27 | PN ---
PROGRESS NOTE ADDENDUM: DATE OF SERVICE: 07/12/17 EXAM: Lungs decreased breath sounds. Cardiovascular first and second sounds normal. MMODL / IJN: [id number] /
--- NOTE | 2017-08-01 23:27 | PN ---
PROGRESS NOTE ADDENDUM: DATE OF SERVICE: 07/14/17 PHYSICAL EXAMINATION: LUNGS: Decreased breath sounds. Cardiovascular first and second sounds normal. MMODL / IJN: [id number] /
== END 2017-07-16 17:08 | DRG 220 ==
LOC: 2ORMAIN 05:37 → 6ICU 13:31 → 6SEL 07-12 15:24
PROVIDERS: ADMIT Surgery; ATTEND Surgery
PROC: 02L70CK Occlusion of Left Atrial Appendage with Extraluminal Device, Open Approach (ICD-10-PCS; 2017-07-09)
PROC: 5A1221Z Performance of Cardiac Output, Continuous (ICD-10-PCS; 2017-07-09)
PROC: B24BZZ4 Ultrasonography of Heart with Aorta, Transesophageal (ICD-10-PCS; 2017-07-09)
PROC: 02RF08Z Replacement of Aortic Valve with Zooplastic Tissue, Open Approach (ICD-10-PCS; principal; 2017-07-09 08:00)
PROC: 021009W Bypass Coronary Artery, One Artery from Aorta with Autologous Venous Tissue, Open Approach (ICD-10-PCS; 2017-07-09 08:00)
PROC: 06BP4ZZ Excision of Right Saphenous Vein, Percutaneous Endoscopic Approach (ICD-10-PCS; 2017-07-09 08:00)
DX: I35.0 Nonrheumatic aortic (valve) stenosis (principal); J90 Pleural effusion, not elsewhere classified; E11.649 Type 2 diabetes mellitus with hypoglycemia without coma; D62 Acute posthemorrhagic anemia; J98.11 Atelectasis; E05.90 Thyrotoxicosis, unspecified without thyrotoxic crisis or storm; I48.0 Paroxysmal atrial fibrillation; I10 Essential (primary) hypertension; E78.5 Hyperlipidemia, unspecified; K21.9 Gastro-esophageal reflux disease without esophagitis; I25.10 Atherosclerotic heart disease of native coronary artery without angina pectoris; M19.91 Primary osteoarthritis, unspecified site; F17.210 Nicotine dependence, cigarettes, uncomplicated; E66.9 Obesity, unspecified; S60.512A Abrasion of left hand, initial encounter; S80.02XA Contusion of left knee, initial encounter; Z79.51 Long term (current) use of inhaled steroids; Z79.84 Long term (current) use of oral hypoglycemic drugs; Z79.83 Long term (current) use of bisphosphonates; Z79.1 Long term (current) use of non-steroidal anti-inflammatories (NSAID); Z79.899 Other long term (current) drug therapy; Z90.49 Acquired absence of other specified parts of digestive tract; Z86.59 Personal history of other mental and behavioral disorders; Z88.6 Allergy status to analgesic agent; Z88.0 Allergy status to penicillin; Z88.2 Allergy status to sulfonamides; Z85.828 Personal history of other malignant neoplasm of skin; W19.XXXA Unspecified fall, initial encounter; Y92.002 Bathroom of unspecified non-institutional (private) residence as the place of occurrence of the external cause; Z82.49 Family history of ischemic heart disease and other diseases of the circulatory system
CPT/HCPCS: 71010; 71020; 80048; 80053; 82330; 82805; 83036; 83735; 84100; 84132; 85025; 85027; 85520; 85610; 85730; 86850; 86891; 86900; 86901; 86920; 88305; 88311; 94002; 94003; 94640; 94760

== ENCOUNTER → 2020-08-14 | Outpatient (CLI) | payer MEDICARE ==
--- NOTE | 2020-08-14 09:01 | CT ---
EXAMINATION TYPE: CT abdomen pelvis wo con DATE OF EXAM: 08/14/2020 COMPARISON: None HISTORY: Unspecified abdominal pain CT DLP: 916 mGycm Examination of the solid and hollow viscera is limited given the lack of contrast. FINDINGS: LUNG BASES: No evidence for nodule. No evidence for infiltrate. LIVER/GB: The gallbladder is surgically absent. No space-occupying hepatic lesion. PANCREAS: No pancreatic mass identified. No inflammatory process seen. SPLEEN: No evidence for splenomegaly. No intrasplenic lesions seen. ADRENALS: No adrenal nodules identified. No evidence for thickening. KIDNEYS: No evidence for renal mass. No nephrolithiasis. No hydronephrosis. BOWEL: Appendix has a normal appearance. No evidence of bowel obstruction. No inflammatory process. Lymph nodes: No evidence for adenopathy greater than 1 cm. Abdominal aorta: Atheromatous changes seen. No evidence for aneurysm. Genital organs: There is a large cystic mass with internal septations extending from the pelvis into the upper abdomen which measures 15.2 x 20.5 x 24 cm. There is mass effect noted upon the adjacent anoop wel loops as well as the urinary bladder. 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 The uterus is atrophic. Other: No significant abnormality. IMPRESSION: 1. Large complex cystic mass which may arise from the right ovary. Malignancy is not excluded.
== END | disposition home or self-care (01) ==
LOC: RADCTMAIN 07:58
PROVIDERS: ATTEND Family Medicine
DX: R19.00 Intra-abdominal and pelvic swelling, mass and lump, unspecified site (principal)
CPT/HCPCS: 74176